=== PATIENT | female | born 1930 | race Caucasian/White ===

== ENCOUNTER 2017-01-25 23:19 | Inpatient (IN) | payer OTHER, MEDICARE ==
[2017-01-25 23:37] VITALS: BMI 29.0
--- NOTE | 2017-01-25 23:54 | PDOC ---
History of Present Illness - General History Source: Patient Exam Limitations: No Limitations - History of Present Illness Initial Comments: 01/26/17 00:26 The patient is a 86 year old female who presents to the emergency department with right hip pain s/p fall at the [facility] assisted living facility. The patient states she was walking in her room without her cane and she fell to the ground. The patient reports she was not dizzy prior to falling, however, is unable to explain how or why she fell. The patient reports pain in the right hip that is worse with movement. The patient is a poor historian and is unable to provide additional information. She denies head, neck or back pain. She denies dizziness or double vision. She denies numbness, tingling or loss of sensation. She denies recent chest pain or shortness of breath. Allergies: Codeine, Penicillins Primary Care Physician: Dr. Quispe <Mao Eng - Last Filed: 01/26/17 03:59> <Elsa Diaz - Last Filed: 01/27/17 00:58> - General Chief Complaint: Injury Stated Complaint: FALL Time Seen by Provider: 01/25/17 23:24 Past History <Mao Eng - Last Filed: 01/26/17 03:59> - Suicide/Smoking/Psychosocial Hx Smoking History: Never smoked Have you smoked in the past 12 months: No Information on smoking cessation initiated: No Hx Alcohol Use: No Drug/Substance Use Hx: No <Elsa Diaz - Last Filed: 01/27/17 00:58> - Past Medical History Allergies/Adverse Reactions: Allergies Allergy/AdvReac Type Severity Reaction Status Date / Time codeine Allergy Verified 01/25/17 23:35 Penicillins Allergy Verified 01/25/17 23:35 Home Medications: Ambulatory Orders Acetaminophen [Tylenol -] 500 mg PO Q4H PRN 01/26/17 Aspirin [ASA -] 81 mg PO DAILY 01/26/17 Memantine HCl [Namenda -] 5 mg PO DAILY 01/26/17 Metoprolol Tartrate [Lopressor -] 25 mg PO BID 01/26/17 Mirtazapine [Remeron -] 15 mg PO HS 01/26/17 Review of Systems - Review of Systems Comments:: 01/26/17 00:31 GENERAL/CONSTITUTIONAL: No fever or chills. No weakness. HEAD, EYES, EARS, NOSE AND THROAT: No change in vision. No ear pain or discharge. No sore throat. CARDIOVASCULAR: No chest pain or shortness of breath. RESPIRATORY: No cough, wheezing, or hemoptysis. GASTROINTESTINAL: No nausea, vomiting, diarrhea or constipation. GENITOURINARY: No dysuria, frequency, or change in urination. MUSCULOSKELETAL: +Right hip pain. No neck or back pain. SKIN: No rash NEUROLOGIC: No headache, vertigo, loss of consciousness, or change in strength/ sensation. ENDOCRINE: No increased thirst. No abnormal weight change. HEMATOLOGIC/LYMPHATIC: No anemia, easy bleeding, or history of blood clots. ALLERGIC/IMMUNOLOGIC: No hives or skin allergy. <Mao Eng - Last Filed: 01/26/17 03:59> *Physical Exam - Vital Signs Last Vital Signs Temp Pulse Resp BP Pulse Ox 97.8 F 84 20 107/48 95 01/25/17 23:35 01/25/17 23:35 01/25/17 23:35 01/25/17 23:35 01/25/17 23:35 - Physical Exam Comments: 01/26/17 00:32 GENERAL: Awake, alert, and fully oriented, in no acute distress HEAD: +Abrasion proximal to the right orthodoxy. EYES: PERRLA, EOMI, sclera anicteric, conjunctiva clear ENT: Auricles normal inspection, hearing grossly normal, nares patent, oropharynx clear without exudates. Moist mucosa NECK: Normal ROM, supple, no lymphadenopathy, JVD, or masses LUNGS: Breath sounds equal, clear to auscultation bilaterally. No wheezes, and no crackles HEART: Regular rate and rhythm, normal S1 and S2, no murmurs, rubs or gallops ABDOMEN: Soft, nontender, normoactive bowel sounds. No guarding, no rebound. No masses EXTREMITIES: +Right knee abrasion. No clubbing or cyanosis. NEUROLOGICAL: Cranial nerves II through XII grossly intact. Normal speech. SKIN: Warm, Dry, normal turgor, no rashes or lesions noted. <Mao Eng - Last Filed: 01/26/17 03:59> - Vital Signs Last Vital Signs Temp Pulse Resp BP Pulse Ox 97.8 F 84 20 107/48 95 01/25/17 23:35 01/25/17 23:35 01/25/17 23:35 01/25/17 23:35 01/25/17 23:35 <Elsa Diaz - Last Filed: 01/27/17 00:58> Heart Score/ECG Review #1 01/26/17 02:28 Vent rate 78 bpm. Normal Sinus rhythm, possible left atrial enlargement, right bundle branch block, abnormal ECG. <Mao Eng - Last Filed: 01/26/17 03:59> ED Treatment Course - LABORATORY CBC & Chemistry Diagram: 01/26/17 00:10 01/26/17 00:10 - RADIOLOGY Radiograph Interpretation: 01/26/17 03:22 EXAM: Pelvis x-ray and right hip x-rays HISTORY: Fall COMPARISON: None. FINDINGS: AP view of the pelvis and AP and lateral views of the right hip are submitted. *There are acute fractures of the right superior and inferior pubic rami. The right hip is intact. There is no hip fracture or dislocation seen. There is diffuse bony demineralization. Reported by Roosevelt Phillips MD Comments: *There are acute fractures of the right superior and inferior pubic rami. <Mao Eng - Last Filed: 01/26/17 03:59> - LABORATORY CBC & Chemistry Diagram: 01/26/17 00:10 01/26/17 00:10 <Elsa Diaz - Last Filed: 01/27/17 00:58> Medical Decision Making - Medical Decision Making 01/26/17 02:[address] Quispe at 11:56 pm. Answering service advised to admit to the hospitalist. <Mao Eng - Last Filed: 01/26/17 03:59> - Medical Decision Making 01/26/17 03:49 Patient Name: MINI GALINDO THIS IS A PRELIMINARY REPORT FROM [facility] DATE OF SERVICE: 2017-01-26 01:39:16 IMAGES: 3 EXAM: Pelvis x-ray and right hip x-rays HISTORY: Fall COMPARISON: None. FINDINGS: AP view of the pelvis and AP and lateral views of the right hip are submitted. *There are acute fractures of the right superior and inferior pubic rami. The right hip is intact. There is no hip fracture or dislocation seen. There is diffuse bony demineralization. THIS DOCUMENT HAS BEEN ELECTRONICALLY SIGNED 01/27/17 00:47 Pt fell at the [place] - unwitnessed syncope -and she broke her right superior and inferior pubic rami and cannot ambulate and she will be admitted. She has early dementia, takes namenda, but she is alert and awake and able to answer questions. Pt was walking without her cane and next think she knew she was on the ground. Unclear if she slipped. She cannot recall if she felt palpitations. No CP and no SONI at this time. The only pain is right femur and hip pain. <Elsa Diaz - Last Filed: 01/27/17 00:58> *DC/Admit/Observation/Transfer - Attestations Scribe Attestion: 01/26/17 00:34 Documentation prepared by Mao Eng, acting as medical educator for Elsa Diaz MD. <Mao Eng - Last Filed: 01/26/17 03:59> - Discharge Dispostion Admit: Yes <Elsa Diaz - Last Filed: 01/27/17 00:58> Diagnosis at time of Disposition: Inability to ambulate due to hip, Syncope and collapse, Fracture of pubic ramus - Discharge Dispostion Condition at time of disposition: Guarded
[2017-01-26 00:38] LABS: BASOPHIL 0.5 % (0-2.0); EOSINOPHIL 0.5 % (0-4.5); MCH 29.7 pg (25.7-33.7); MCHC 33.5 g/dl (32.0-36.0); MEAN CELL VOLUME 88.6 fl (80-96); MEAN PLT VOLUME 9.8 fl (7.5-11.1); PLATELET COUNT 142 K/MM3 (134-434); RDW 13.1 % (11.6-15.6); WHITE BLOOD COUNT 10.5 K/mm3 (4.0-10.0)
[2017-01-26 01:17] LABS: ALBUMIN 3.3 g/dl (3.4-5.0); ALK PHOS 78 U/L (45-117); ANION GAP 5 (8-16); BILIRUBIN,TOTAL 0.5 mg/dL (0.2-1.0); CALCIUM 8.9 mg/dL (8.5-10.1); CO2 32 mmol/L (21-32); CREATININE 0.9 mg/dL (0.55-1.02); GLUCOSE,RANDOM 117 mg/dL (74-106); SGOT/AST 16 U/L (15-37); SGPT/ALT 21 U/L (12-78); TOT PROT 6.2 g/dl (6.4-8.2)
[2017-01-26] MEDS ORDERED: SODIUM CHLORIDE 0.9% 500 ML INFUS.BAG IV ONE (02:16)
[2017-01-26 03:54] LABS: URINE APPEARANCE CLEAR; URINE BILIRUBIN NEGATIVE (NEGATIVE); URINE BLOOD NEGATIVE (NEGATIVE); URINE COLOR YELLOW; URINE GLUCOSE (UA) NEGATIVE (NEGATIVE); URINE KETONE NEGATIVE (NEGATIVE); URINE NITRITE NEGATIVE (NEGATIVE); URINE PROTEIN NEGATIVE (NEGATIVE); URINE UROBILINOGEN NEGATIVE mg/dL (0.2-1.0)
--- NOTE | 2017-01-26 04:37 | HP ---
CHIEF COMPLAINT: s/p fall PCP: Dr. Quispe HISTORY OF PRESENT ILLNESS: 86 yr old with HTN, unsteady gait, BIBEMS from [facility] s/p mechanical fall. She had gone to dinner around 5/6pm, played bingo and retunred to her room around 8pm when she was unpacking from her thanksgiving trip to [place]. she planned to walk from the living to the bedroom to watch TV before going to sleep when she fell on a carpeted floor on her right side. she felt that she could not get up and laid there struggling from her back and her right side and about an hour of trying she called pressed the alert chain to being [facility] staff to her room for assistance. She thinks she may have taken her PM medications prior to moving around. She was recently started on the remeron, has been taking it for insomnia for past three nights. She normally has [employer] from M-F approx 6hrs daily. no one the weekends. son attributes fall to patient no using her walker. denies seizure-like activity, urinary/bowel incontinence, chest pain, palpitations, sob, lightheadedness or dizziness. denies pre-syncopal sx. ER course was notable for: (1) hip and pelvic xrays with possible right pubis symphosis fracture (2) (3) Recent Travel: PAST MEDICAL HISTORY: dementia HTN PAST SURGICAL HISTORY: right TKR Lmany years ago" "stomach cancer" removed approx 5 yrs ago "thymus removed" many years ago Social History: Smoking:denies Alcohol:denies Drugs: denies Family History:[place] Allergies codeine Allergy (Verified 01/25/17 23:35) Penicillins Allergy (Verified 01/25/17 23:35) HOME MEDICATIONS: Home Medications Medication Instructions Recorded Acetaminophen [Tylenol -] 500 mg PO Q4H PRN 01/26/17 Metoprolol Tartrate [Lopressor -] 25 mg PO BID 01/26/17 REVIEW OF SYSTEMS CONSTITUTIONAL: Absent: fever, chills, diaphoresis, generalized weakness, malaise, loss of appetite, weight change HEENT: Absent: rhinorrhea, nasal congestion, throat pain, throat swelling, difficulty swallowing, mouth swelling, ear pain, eye pain, visual changes CARDIOVASCULAR: Absent: chest pain, syncope, palpitations, irregular heart rate, lightheadedness , peripheral edema RESPIRATORY: Absent: cough, shortness of breath, dyspnea with exertion, orthopnea, wheezing, stridor, hemoptysis GASTROINTESTINAL: Absent: abdominal pain, abdominal distension, nausea, vomiting, diarrhea, constipation, melena, hematochezia GENITOURINARY: Absent: dysuria, frequency, urgency, hesitancy, hematuria, flank pain, genital pain MUSCULOSKELETAL: Absent: myalgia, arthralgia, joint swelling, back pain, neck pain SKIN: Absent: rash, itching, pallor HEMATOLOGIC/IMMUNOLOGIC: Absent: easy bleeding, easy bruising, lymphadenopathy, frequent infections ENDOCRINE: Absent: unexplained weight gain, unexplained weight loss, heat intolerance, cold intolerance NEUROLOGIC: Present: unsteady gait, Absent: headache, focal weakness or paresthesias, dizziness, seizure, mental status changes, bladder or bowel incontinence PSYCHIATRIC: Absent: anxiety, depression, suicidal or homicidal ideation, hallucinations. PHYSICAL EXAMINATION Vital Signs - 24 hr 01/25/17 01/26/17 23:35 04:16 Temperature 97.8 F Pulse Rate 84 Pulse Rate [ 75 Right Apical] Respiratory 20 19 Rate Blood Pressure 107/48 Blood Pressure 108/56 [Left Arm] O2 Sat by Pulse 95 98 Oximetry (%) GENERAL: Awake, alert, and fully oriented, in no acute distress. HEAD: Normal with no signs of trauma. EYES: Pupils equal, round and reactive to light, extraocular movements intact, sclera anicteric, conjunctiva clear. No lid lag. EARS, NOSE, THROAT: Ears normal, nares patent, oropharynx clear without exudates. Moist mucous membranes. NECK: Normal range of motion, supple without lymphadenopathy, JVD, or masses. LUNGS: Breath sounds equal, clear to auscultation bilaterally. No wheezes, and no crackles. No accessory muscle use. HEART: Regular rate and rhythm, normal S1 and S2 without murmur, rub or gallop. ABDOMEN: Soft, nontender, not distended, normoactive bowel sounds, no guarding, no rebound, no masses. No hepatomegaly or splenomegaly. MUSCULOSKELETAL: Normal range of motion at all joints. No bony deformities or tenderness. No CVA tenderness. UPPER EXTREMITIES: 2+ pulses, warm, well-perfused. No cyanosis. No clubbing. No peripheral edema. LOWER EXTREMITIES: 2+ pulses, warm, well-perfused. No calf tenderness. No peripheral edema. NEUROLOGICAL: Cranial nerves II-XII intact. Normal speech. Normal gait. PSYCHIATRIC: Cooperative. Good eye contact. Appropriate mood and affect. SKIN: Warm, dry, normal turgor, no rashes or lesions noted, normal capillary refill. Laboratory Results - last 24 hr 01/26/17 01/26/17 01/26/17 00:10 00:10 00:10 WBC 10.5 H RBC 4.60 Hgb 13.6 Hct 40.7 MCV 88.6 MCH 29.7 MCHC 33.5 RDW 13.1 Plt Count 142 MPV 9.8 Neutrophils % 88.0 H Lymphocytes % 6.6 L Monocytes % 4.4 Eosinophils % 0.5 Basophils % 0.5 Sodium 142 Potassium 3.8 Chloride 105 Carbon Dioxide 32 Anion Gap 5 L BUN 24 H Creatinine 0.9 Creat Clearance w eGFR 59.23 Random Glucose 117 H Calcium 8.9 Total Bilirubin 0.5 AST 16 ALT 21 Alkaline Phosphatase 78 Total Protein 6.2 L Albumin 3.3 L Urine Color Urine Appearance Urine pH Ur Specific [place] Urine Protein Urine Glucose (UA) Urine Ketones Urine Blood Urine Nitrite Urine Bilirubin Urine Urobilinogen Alcohol, Quantitative < 5.0 01/26/17 03:45 WBC RBC Hgb Hct MCV MCH MCHC RDW Plt Count MPV Neutrophils % Lymphocytes % Monocytes % Eosinophils % Basophils % Sodium Potassium Chloride Carbon Dioxide Anion Gap BUN Creatinine Creat Clearance w eGFR Random Glucose Calcium Total Bilirubin AST ALT Alkaline Phosphatase Total Protein Albumin Urine Color Yellow Urine Appearance Clear Urine pH 6.0 Ur Specific [place] 1.020 Urine Protein Negative Urine Glucose (UA) Negative Urine Ketones Negative Urine Blood Negative Urine Nitrite Negative Urine Bilirubin Negative Urine Urobilinogen Negative Alcohol, Quantitative ASSESSMENT/PLAN: 86 yr old woman s/p mechanical fall and placed on observation for further evaluation. - son expressed interest in taking his mother home if no intervention recommended #s/p fall - low suspicion for cardiac/neurogenic or infectioun induced syncope - likely due to patient's established unsteady gait vs remeron SE of dizziness/ drowsiness - ortho consult placed in ED - physical therapy consult for gait evaluation #continue home medications for chronic conditions
--- NOTE | 2017-01-26 04:37 | PN ---
Teaching Attending Note Name of Resident: Sandra Johnson ATTENDING PHYSICIAN STATEMENT I saw and evaluated the patient. I reviewed the resident's note and discussed the case with the resident. I agree with the resident's findings and plan as documented. SUBJECTIVE: OBJECTIVE: ASSESSMENT AND PLAN: david os an 86 y/o female presented s/p trauma, patient stated that she was walking in her house where she lost footing since she didnt have her cane with her, she was on the floor for a while before the EMS showed up. patient denied any loss of conciousness she is being admitted for observation Pelvic xray showed questionable fracture plan: admit to the hospital for observation consult orthopedics possible CT of pelvis based on orthopedic recommendation.
[2017-01-26] MEDS: ACETAMINOPHEN 500 MG TABLET (FP) PO PRN (09:59)
[2017-01-26] MEDS: METOPROLOL TARTRATE 25 MG TABLET (FP) PO SCH ×2 (10:00→22:01)
[2017-01-26] MEDS: MEMANTINE HCL 5 MG TABLET (UD) PO SCH (10:00)
[2017-01-26 11:13] LABS: URINE LEUK ESTERASE 1+ (NEGATIVE)
--- NOTE | 2017-01-26 11:47 | HOSP ---
Physical Examination Vital Signs: Vital Signs Temperature 98.1 F 01/26/17 09:58 Pulse Rate 107 H 01/26/17 09:58 Respiratory Rate 20 01/26/17 09:58 Blood Pressure 100/44 01/26/17 09:58 O2 Sat by Pulse Oximetry (%) 94 L 01/26/17 10:03 Findings/Remarks: Subjective: The patient was seen and examined at the bedside, she reports last night she was putting clothes away and she tripped and had a mechanical fall. She denies loss of consciousness, dizziness, prodrome. Awaiting ortho consult Awaiting PT consult Current Medications Generic Name Dose Route Start Last Admin Trade Name Freq PRN Reason Stop Dose Admin Acetaminophen 500 mg 01/26/17 07:41 01/26/17 09:59 Tylenol - PO 500 mg Q4H PRN Administration BACK PAIN Memantine 5 mg 01/26/17 10:00 01/26/17 10:00 Namenda - PO 5 mg DAILY MORIAH Administration Metoprolol Tartrate 25 mg 01/26/17 10:00 01/26/17 10:00 Lopressor - PO 25 mg BID MORIAH Administration Mirtazapine 15 mg 01/26/17 22:00 Remeron - PO HS MORIAH Objective: Vital Signs Period Temp Pulse Resp BP Sys/Kirk Pulse Ox Last 24 Hr 97.5 F-98.1 F 75-107 18-20 100-125/44-71 94-98 Physical Exam: General: NAD, A&Ox3 Lungs: CTA bilaterally Heart: RRR, S1S2, +murmur Abd: Soft, non-tender, non-distended. Normoactive bowel sounds Ext: Warm, well-perfused. 2+ DP/PT bilaterally Neuro: CN 2-12 intact CBCD WBC 10.5 K/mm3 (4.0-10.0) H 01/26/17 00:10 RBC 4.60 M/mm3 (3.60-5.2) 01/26/17 00:10 Hgb 13.6 GM/dL (10.7-15.3) 01/26/17 00:10 Hct 40.7 % (32.4-45.2) 01/26/17 00:10 MCV 88.6 fl (80-96) 01/26/17 00:10 MCHC 33.5 g/dl (32.0-36.0) 01/26/17 00:10 RDW 13.1 % (11.6-15.6) 01/26/17 00:10 Plt Count 142 K/MM3 (134-434) 01/26/17 00:10 MPV 9.8 fl (7.5-11.1) 01/26/17 00:10 CMP Sodium 142 mmol/L (136-145) 01/26/17 00:10 Potassium 3.8 mmol/L (3.5-5.1) 01/26/17 00:10 Chloride 105 mmol/L (98-107) 01/26/17 00:10 Carbon Dioxide 32 mmol/L (21-32) 01/26/17 00:10 Anion Gap 5 (8-16) L 01/26/17 00:10 BUN 24 mg/dL (7-18) H 01/26/17 00:10 Creatinine 0.9 mg/dL (0.55-1.02) 01/26/17 00:10 Creat Clearance w eGFR 59.23 (>60) 01/26/17 00:10 Random Glucose 117 mg/dL (74-106) H 01/26/17 00:10 Calcium 8.9 mg/dL (8.5-10.1) 01/26/17 00:10 Total Bilirubin 0.5 mg/dL (0.2-1.0) 01/26/17 00:10 AST 16 U/L (15-37) 01/26/17 00:10 ALT 21 U/L (12-78) 01/26/17 00:10 Alkaline Phosphatase 78 U/L (45-117) 01/26/17 00:10 Total Protein 6.2 g/dl (6.4-8.2) L 01/26/17 00:10 Albumin 3.3 g/dl (3.4-5.0) L 01/26/17 00:10 Assessment: This is an 86 year old female with PMHx of dementia, HTN who presented to the ED s/p mechanical fall and was found to have a possible right symphysis pubis fracture. Plan: 1) Pelvic fracture - Pain management - PT evaluation - F/u ortho consult 2) Dementia - Continue Namenda - Continue Remeron 3) HTN - Continue Lopressor 4) F/E/N: - Monitor electrolytes - Sodium controlled diet 5) Prophylaxis: - Pt evaluation - Heparin 5,000u sq bid 6) Dispo: - Once evaluated by PT and ortho CODE STATUS: FULL CODE Labs: CBC, BMP 01/26/17 00:10 01/26/17 00:10
--- NOTE | 2017-01-26 13:43 | CON.ORTH ---
Consult Referred by:: medicine Reason for Consultation:: pain RIGHT hip - History of Present Illness Chief Complaint: RIGHT hip pain History of Present Illness: 86-year-old female admitted, mechanical fall at her assisted living facility last night. She had some pain in the pelvic area and did not try to get up and was taken to [facility] where she was admitted yesterday. I was consult to for possible pelvic ring fracture. The patient states she is feeling better. She is here with her daughter. She is not trying to walk. She has a history of a RIGHT knee replacement which is been bothering her some for a while. No other complaints. No chest pain shortness of breath or loss of consciousness. There are no other aggrevating, relieving or associated factors. - History Source History Provided By: Patient, Family Member - Past Medical History ...: No - Alcohol/Substance Use Hx Alcohol Use: No - Smoking History Smoking history: Never smoked Have you smoked in the past 12 months: No Home Medications - Allergies Allergies/Adverse Reactions: Allergies Allergy/AdvReac Type Severity Reaction Status Date / Time codeine Allergy Verified 01/25/17 23:35 Penicillins Allergy Verified 01/25/17 23:35 - Home Medications Home Medications: Ambulatory Orders Acetaminophen [Tylenol -] 500 mg PO Q4H PRN 01/26/17 Aspirin [ASA -] 81 mg PO DAILY 01/26/17 Memantine HCl [Namenda -] 5 mg PO DAILY 01/26/17 Metoprolol Tartrate [Lopressor -] 25 mg PO BID 01/26/17 Mirtazapine [Remeron -] 15 mg PO HS 01/26/17 Physical Exam for Ortho Vital Signs: Vital Signs Temperature 98.1 F 01/26/17 09:58 Pulse Rate 107 H 01/26/17 09:58 Respiratory Rate 20 01/26/17 09:58 Blood Pressure 100/44 01/26/17 09:58 O2 Sat by Pulse Oximetry (%) 94 L 01/26/17 10:03 Constitutional: Yes: Well Nourished, No Distress Neck: Yes: WNL Cardiovascular: Yes: WNL Respiratory: Yes: Regular Gastrointestinal: Yes: Soft Labs: CBC, BMP 01/26/17 00:10 01/26/17 00:10 Other Findings/Remarks: patient is resting comfortably in bed. Her daughter is at bedside. She is a well-appearing in no acute distress. There is mild ecchymosis over the RIGHT anterior knee. There is a well-healed incision here from a knee replacement. She has very mild tenderness over the medial aspect of the knee. There is no gross instability. Full range of motion. She has 2+ pulses in both lower extremity. Intact sensation. She is able to move all joints in both lower extremity is comfortably without any discomfort. There is no tenderness throughout the lower extremities. No pain with axial loading of either hip or with rotation of either hip. Imaging - Results X-ray: Image Reviewed (x-ray AP pelvis, RIGHT hip, RIGHT femur: Possible RIGHT pubic rami fracture. Intact knee replacement.) Assessment/Plan impression: Possible nondisplaced RIGHT pubic rami fracture Plan: I have had along discussion with the patient and daughter about the findings and treatment options. I recommended physical therapy with gait training and weightbearing as tolerated. Follow-up with me as an outpatient. From an orthopedic viewpoint she may be discharged when cleared by physical therapy.
[2017-01-26] MEDS: HEPARIN NA (PORCINE) 5,000 UNITS/ML 1ML VIAL SQ SCH (22:00)
[2017-01-26] MEDS: MIRTAZAPINE 15 MG TABLET (FP) PO SCH (22:01)
[2017-01-27 07:38] LABS: MCH 29.5 pg (25.7-33.7); MCHC 33.6 g/dl (32.0-36.0); MEAN CELL VOLUME 87.9 fl (80-96); MEAN PLT VOLUME 9.7 fl (7.5-11.1); PLATELET COUNT 100 K/MM3 (134-434); RDW 13.2 % (11.6-15.6); WHITE BLOOD COUNT 6.1 K/mm3 (4.0-10.0)
[2017-01-27 08:51] LABS: ALBUMIN 2.9 g/dl (3.4-5.0); ALK PHOS 64 U/L (45-117); ANION GAP 6 (8-16); BILIRUBIN,TOTAL 1.1 mg/dL (0.2-1.0); CALCIUM 8.2 mg/dL (8.5-10.1); CO2 29 mmol/L (21-32); CREATININE 0.5 mg/dL (0.55-1.02); GLUCOSE,RANDOM 113 mg/dL (74-106); SGOT/AST 18 U/L (15-37); SGPT/ALT 21 U/L (12-78); TOT PROT 5.7 g/dl (6.4-8.2)
[2017-01-27] MEDS: ACETAMINOPHEN 500 MG TABLET (FP) PO PRN (09:57)
[2017-01-27] MEDS: METOPROLOL TARTRATE 25 MG TABLET (FP) PO SCH ×2 (09:58→22:00)
[2017-01-27] MEDS: MEMANTINE HCL 5 MG TABLET (UD) PO SCH (09:58)
[2017-01-27] MEDS: HEPARIN NA (PORCINE) 5,000 UNITS/ML 1ML VIAL SQ SCH ×2 (09:58→22:00)
--- NOTE | 2017-01-27 11:51 | PN ---
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 (short form) - Note 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: Subjective: The patient was seen and examined at the bedside, she reports feeling "ok" today Current Medications Generic Name Dose Route Start Last Admin Trade Name Willian PRN Reason Stop Dose Admin Acetaminophen 500 mg 01/26/17 07:41 01/27/17 09:57 Tylenol - PO 500 mg Q4H PRN Administration BACK PAIN Heparin Sodium (Porcine) 5,000 unit 01/26/17 22:00 01/27/17 09:58 Heparin - SQ 5,000 unit BID MORIAH Administration Memantine 5 mg 01/26/17 10:00 01/27/17 09:58 Namenda - PO 5 mg DAILY MORIAH Administration Metoprolol Tartrate 25 mg 01/26/17 10:00 01/27/17 09:58 Lopressor - PO 25 mg BID MORIAH Administration Mirtazapine 15 mg 01/26/17 22:00 01/26/17 22:01 Remeron - PO 15 mg HS MORIAH Administration Objective: Vital Signs Period Temp Pulse Resp BP Sys/Kirk Pulse Ox Last 24 Hr 98 F-98.6 F 72-105 16-20 94-130/49-61 94-94 Physical Exam: General: NAD, A&Ox3 Lungs: CTA bilaterally Heart: RRR, S1S2, +murmur Abd: Soft, non-tender, non-distended. Normoactive bowel sounds Ext: Warm, well-perfused. 2+ DP/PT bilaterally Neuro: CN 2-12 intact CBCD WBC 6.1 K/mm3 (4.0-10.0) D 01/27/17 06:10 RBC 4.06 M/mm3 (3.60-5.2) 01/27/17 06:10 Hgb 12.0 GM/dL (10.7-15.3) D 01/27/17 06:10 Hct 35.7 % (32.4-45.2) 01/27/17 06:10 MCV 87.9 fl (80-96) 01/27/17 06:10 MCHC 33.6 g/dl (32.0-36.0) 01/27/17 06:10 RDW 13.2 % (11.6-15.6) 01/27/17 06:10 Plt Count 100 K/MM3 (134-434) L D 01/27/17 06:10 MPV 9.7 fl (7.5-11.1) 01/27/17 06:10 CMP Sodium 143 mmol/L (136-145) 01/27/17 06:10 Potassium 4.3 mmol/L (3.5-5.1) 01/27/17 06:10 Chloride 108 mmol/L (98-107) H 01/27/17 06:10 Carbon Dioxide 29 mmol/L (21-32) 01/27/17 06:10 Anion Gap 6 (8-16) L 01/27/17 06:10 BUN 17 mg/dL (7-18) D 01/27/17 06:10 Creatinine 0.5 mg/dL (0.55-1.02) L D 01/27/17 06:10 Creat Clearance w eGFR > 60 (>60) 01/27/17 06:10 Random Glucose 113 mg/dL (74-106) H 01/27/17 06:10 Calcium 8.2 mg/dL (8.5-10.1) L 01/27/17 06:10 Total Bilirubin 1.1 mg/dL (0.2-1.0) H D 01/27/17 06:10 AST 18 U/L (15-37) 01/27/17 06:10 ALT 21 U/L (12-78) 01/27/17 06:10 Alkaline Phosphatase 64 U/L (45-117) 01/27/17 06:10 Total Protein 5.7 g/dl (6.4-8.2) L 01/27/17 06:10 Albumin 2.9 g/dl (3.4-5.0) L 01/27/17 06:10 Assessment: This is an 86 year old female with PMHx of dementia, HTN who presented to the ED s/p mechanical fall and was found to have a possible right symphysis pubis fracture. Plan: 1) Pelvic fracture - Pain management - PT: walked 1 foot - Appreciate ortho consult: No surgical intervention at this time 2) Dementia - Continue Namenda - Continue Remeron 3) HTN - Continue Lopressor 4) F/E/N: - Monitor electrolytes - Sodium controlled diet 5) Prophylaxis: - Pt evaluation - Heparin 5,000u sq bid 6) Dispo: - The patient was made inpatient. Due to her pelvic fracture she is not able to ambulate and it is unsafe to send her home. There is an acute change in her ability to ambulate following the mechanical fall and fracture CODE STATUS: FULL CODE Visit type - Emergency Visit Emergency Visit: Yes ED Registration Date: 01/26/17 Care time: The patient presented to the Emergency Department on the above date and was hospitalized for further evaluation of their emergent condition. - New Patient This patient is new to me today: No - Critical Care Critical Care patient: No
--- NOTE | 2017-01-27 14:12 | PN ---
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 (short form) - Note 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: Feeling improved a little bit. Sleeping when I came in to room but her son is present and he wanted her to wake up when he woke her up. She apparently did some physical therapy and walks a little bit yesterday. However it sounds like they would like her to go to rehabilitation. She does have rehabilitation available at her assisted living facility. Physical examination: She has no tenderness in her lower extremities and no pain with stress examination axial load or rotation of the lower extremities. Mild tenderness over the RIGHT greater trochanter. Impression: Contusion hips versus pubic rami fracture. Plan: Physical therapy, out of bed, rehabilitation placement. I spoke with her son extensively about this process and he understands that ultimately the medical team and case management will help in the process of discharge planning. From an orthopedic viewpoint she may be discharged once she has appropriate care arranged.
[2017-01-27] MEDS: MIRTAZAPINE 15 MG TABLET (FP) PO SCH (22:00)
[2017-01-28] MEDS: ACETAMINOPHEN 500 MG TABLET (FP) PO PRN (09:25)
[2017-01-28] MEDS: METOPROLOL TARTRATE 25 MG TABLET (FP) PO SCH ×2 (09:27→22:00)
[2017-01-28] MEDS: HEPARIN NA (PORCINE) 5,000 UNITS/ML 1ML VIAL SQ SCH ×2 (09:27→22:00)
[2017-01-28] MEDS: MEMANTINE HCL 5 MG TABLET (UD) PO SCH (09:27)
--- NOTE | 2017-01-28 19:11 | PN ---
Physical Exam: SUBJECTIVE: Patient seen and examined at bedside. Denies pain. Voices no complaints. Says she is ready to go to SNF tomorrow. PCP: Dr. Quispe; hospitalist service covering for Dr. Quispe today OBJECTIVE: Vital Signs Period Temp Pulse Resp BP Sys/Kirk Pulse Ox Last 24 Hr 98.3 F-99.1 F 91-107 18-18 96-113/54-66 92-94 GENERAL: The patient is awake, alert, rambling speech, in no acute distress. LUNGS: Breath sounds equal, clear to auscultation bilaterally, no wheezes, no crackles, no accessory muscle use. HEART: Regular rate and rhythm, S1, S2, + murmur ABDOMEN: Soft, nontender, nondistended, normoactive bowel sounds, no guarding, no rebound EXTREMITIES: 2+ pulses, warm, well-perfused, no edema. NEUROLOGICAL: Cranial nerves II through XII grossly intact. Normal speech, gait not observed. SKIN: Warm, dry, normal turgor Active Medications Generic Name Dose Route Start Last Admin Trade Name Willian PRN Reason Stop Dose Admin Acetaminophen 500 mg 01/26/17 07:41 01/28/17 09:25 Tylenol - PO 500 mg Q4H PRN Administration BACK PAIN Heparin Sodium (Porcine) 5,000 unit 01/26/17 22:00 01/28/17 09:27 Heparin - SQ 5,000 unit BID MORIAH Administration Memantine 5 mg 01/26/17 10:00 01/28/17 09:27 Namenda - PO 5 mg DAILY MORIAH Administration Metoprolol Tartrate 25 mg 01/26/17 10:00 01/28/17 09:27 Lopressor - PO 25 mg BID MORIAH Administration Mirtazapine 15 mg 01/26/17 22:00 01/27/17 22:00 Remeron - PO 15 mg HS MORIAH Administration ASSESSMENT/PLAN 86 year-old female with PMH of HTN and dementia admitted for a possible nondisplaced right symphysis pubis fracture. The decision to admit was premised on the patient's inability to ambulate secondary to pain together with dementia. These factors rendered patient an unsafe discharge to home. Nondisplaced pubic rami fracture v. contusion --seen and evaluated by ortho; given patient's age and co-morbidities, and after discussion with family, a conservative course of physical therapy and rehabilitation has been decided upon Dementia --at baseline --continue Namenda, Remeron Hypertension --normotensive --continue metoprolol FEN Fluids: PO intake adequate Electrolyte: replete as indicated Nutrition: low sodium DVT prophylaxis: subq heparin Daily PT Dispo: SNF placement tomorrow morning. Full code. Visit type - Emergency Visit Emergency Visit: Yes ED Registration Date: 01/26/17 Care time: The patient presented to the Emergency Department on the above date and was hospitalized for further evaluation of their emergent condition. - New Patient This patient is new to me today: Yes Date on this admission: 01/28/17 - Critical Care Critical Care patient: No
[2017-01-28] MEDS: MIRTAZAPINE 15 MG TABLET (FP) PO SCH (22:00)
--- NOTE | 2017-01-28 23:04 | EKG ---
Test Reason : Blood Pressure : / mmHG Vent. Rate : 078 BPM Atrial Rate : 078 BPM P-R Int : 144 ms QRS Dur : 124 ms QT Int : 394 ms P-R-T Axes : 070 065 048 degrees QTc Int : 449 ms NORMAL SINUS RHYTHM POSSIBLE LEFT ATRIAL ENLARGEMENT RIGHT BUNDLE BRANCH BLOCK ABNORMAL ECG NO PREVIOUS ECGS AVAILABLE Confirmed by CHARANJIT ANN, CEASAR ([id number]) on 01/28/2017 11:04:04 PM Referred By: Confirmed By:CEASAR DONOHUE MD
--- NOTE | 2017-01-29 06:36 | DS ---
Physical Examination Vital Signs: Vital Signs Temperature 98.1 F 01/29/17 02:39 Pulse Rate 98 H 01/29/17 02:39 Respiratory Rate 18 01/29/17 02:39 Blood Pressure 108/51 01/29/17 02:39 O2 Sat by Pulse Oximetry (%) 94 L 01/28/17 21:00 Labs: CBC, BMP 01/27/17 06:10 01/27/17 06:10 Discharge Summary Reason For Visit: INABILITY TO AMBULATE DUE TO HIP,SYNCOPE AND Current Active Problems Fracture of pubic ramus (Acute) Inability to ambulate due to hip (Acute) Syncope and collapse (Acute) Condition: Guarded - Instructions Referrals: Payal Quispe MD [Primary Care Provider] - - Home Medications Comprehensive Discharge Medication List: Ambulatory Orders Acetaminophen [Tylenol -] 500 mg PO Q4H PRN 01/26/17 Aspirin [ASA -] 81 mg PO DAILY 01/26/17 Memantine HCl [Namenda -] 5 mg PO DAILY 01/26/17 Metoprolol Tartrate [Lopressor -] 25 mg PO BID 01/26/17 Mirtazapine [Remeron -] 15 mg PO HS 01/26/17 This patient is new to me today: No Emergency Visit: Yes ED Registration Date: 01/26/17 Care time: The patient presented to the Emergency Department on the above date and was hospitalized for further evaluation of their emergent condition. Critical Care patient: No - Discharge Referral Referred to [facility] Med P.C.: No
--- NOTE | 2017-01-29 06:38 | DS ---
Physical Exam: SUBJECTIVE: Patient seen and examined OBJECTIVE: Vital Signs Period Temp Pulse Resp BP Sys/Kirk Pulse Ox Last 24 Hr 97.6 F-98.3 F 98-105 18-18 93-116/48-63 92-94 PHYSICAL EXAM GENERAL: The patient is awake, alert, rambling speech, in no acute distress. LUNGS: Breath sounds equal, clear to auscultation bilaterally, no wheezes, no crackles, no accessory muscle use. HEART: Regular rate and rhythm, S1, S2, + murmur ABDOMEN: Soft, nontender, nondistended, normoactive bowel sounds, no guarding, no rebound EXTREMITIES: 2+ pulses, warm, well-perfused, no edema. NEUROLOGICAL: Cranial nerves II through XII grossly intact. Normal speech, gait not observed. SKIN: Warm, dry, normal turgor LABS CBCD WBC 6.1 K/mm3 (4.0-10.0) D 01/27/17 06:10 RBC 4.06 M/mm3 (3.60-5.2) 01/27/17 06:10 Hgb 12.0 GM/dL (10.7-15.3) D 01/27/17 06:10 Hct 35.7 % (32.4-45.2) 01/27/17 06:10 MCV 87.9 fl (80-96) 01/27/17 06:10 MCHC 33.6 g/dl (32.0-36.0) 01/27/17 06:10 RDW 13.2 % (11.6-15.6) 01/27/17 06:10 Plt Count 100 K/MM3 (134-434) L D 01/27/17 06:10 MPV 9.7 fl (7.5-11.1) 01/27/17 06:10 CMP Sodium 143 mmol/L (136-145) 01/27/17 06:10 Potassium 4.3 mmol/L (3.5-5.1) 01/27/17 06:10 Chloride 108 mmol/L (98-107) H 01/27/17 06:10 Carbon Dioxide 29 mmol/L (21-32) 01/27/17 06:10 Anion Gap 6 (8-16) L 01/27/17 06:10 BUN 17 mg/dL (7-18) D 01/27/17 06:10 Creatinine 0.5 mg/dL (0.55-1.02) L D 01/27/17 06:10 Creat Clearance w eGFR > 60 (>60) 01/27/17 06:10 Calcium 8.2 mg/dL (8.5-10.1) L 01/27/17 06:10 Total Bilirubin 1.1 mg/dL (0.2-1.0) H D 01/27/17 06:10 AST 18 U/L (15-37) 01/27/17 06:10 ALT 21 U/L (12-78) 01/27/17 06:10 Alkaline Phosphatase 64 U/L (45-117) 01/27/17 06:10 Total Protein 5.7 g/dl (6.4-8.2) L 01/27/17 06:10 Albumin 2.9 g/dl (3.4-5.0) L 01/27/17 06:10 HOSPITAL COURSE: Date of Admission:01/26/17 Date of Discharge: 01/29/17 86 year-old female with PMH of HTN and dementia admitted for a possible nondisplaced right symphysis pubis fracture. The decision to admit was premised on the patient's inability to ambulate secondary to pain together with dementia. These factors rendered patient an unsafe discharge home. Nondisplaced pubic rami fracture v. contusion --seen and evaluated by ortho; given patient's age and co-morbidities, and after discussion with family, a conservative course of physical therapy and rehabilitation was decided upon Dementia --at baseline --continued Namenda, Remeron Hypertension --normotensive --continued metoprolol Minutes to complete discharge: 35 Discharge Summary Reason For Visit: INABILITY TO AMBULATE DUE TO HIP,SYNCOPE AND Current Active Problems Fracture of pubic ramus (Acute) Inability to ambulate due to hip (Acute) Syncope and collapse (Acute) Condition: Guarded - Instructions Referrals: Payal Quispe MD [Primary Care Provider] - - Home Medications Comprehensive Discharge Medication List: Ambulatory Orders Acetaminophen [Tylenol -] 500 mg PO Q4H PRN 01/26/17 Aspirin [ASA -] 81 mg PO DAILY 01/26/17 Memantine HCl [Namenda -] 5 mg PO DAILY 01/26/17 Metoprolol Tartrate [Lopressor -] 25 mg PO BID 01/26/17 Mirtazapine [Remeron -] 15 mg PO HS 01/26/17 This patient is new to me today: Yes Date on this admission: 01/29/17 Emergency Visit: Yes ED Registration Date: 01/26/17 Care time: The patient presented to the Emergency Department on the above date and was hospitalized for further evaluation of their emergent condition. Critical Care patient: No - Discharge Referral Referred to [facility] Med P.C.: No
[2017-01-29] MEDS: HEPARIN NA (PORCINE) 5,000 UNITS/ML 1ML VIAL SQ SCH (09:59)
[2017-01-29] MEDS: MEMANTINE HCL 5 MG TABLET (UD) PO SCH (09:59)
[2017-01-29] MEDS: METOPROLOL TARTRATE 25 MG TABLET (FP) PO SCH (09:59)
[2017-01-29 18:15] VITALS: BP 105/47; PULSE 109; TEMP 98.6
== END 2017-01-29 11:38 | DRG 536 ==
LOC: JER 23:19 → JERBED 01-26 03:47 → J4S 01-26 05:43
PROVIDERS: ADMIT Internal Medicine; ATTEND Nurse Practitioner Acute Care
DX: S32.591A Other specified fracture of right pubis, initial encounter for closed fracture (principal); S80.01XA Contusion of right knee, initial encounter; F03.90 Unspecified dementia, unspecified severity, without behavioral disturbance, psychotic disturbance, mood disturbance, and anxiety; I10 Essential (primary) hypertension; W18.39XA Other fall on same level, initial encounter; Y93.89 Activity, other specified; Y92.092 Bedroom in other non-institutional residence as the place of occurrence of the external cause; Z85.028 Personal history of other malignant neoplasm of stomach; Z88.0 Allergy status to penicillin
CPT/HCPCS: 36415; 71010-TC; 73523-TC; 73552-TC-RT; 80053; 80307; 81003; 81015; 85025; 85027; 93005; 93010; 97116-GP; 97161-GP; 99282-25; J1644

== ENCOUNTER 2018-01-01 01:50 | Inpatient (IN) | payer OTHER, MEDICARE ==
[2018-01-01 02:37] VITALS: BMI 25.4
[2018-01-01] MEDS ORDERED: ACETAMINOPHEN 325 MG TABLET (FP) PO ONE (02:38)
[2018-01-01 03:37] LABS: BASO % 0.5 % (0-2.0); EOS % 0.8 % (0-4.5); HEMATOCRIT 42.3 % (32.4-45.2); LYMPH % 9.2 % (8-40); MCH 29.5 pg (25.7-33.7); MCHC 33.1 g/dl (32.0-36.0); MEAN CELL VOLUME 89.1 fl (80-96); MEAN PLT VOLUME 8.7 fl (7.5-11.1); MONO % 4.9 % (3.8-10.2); NEUT % 84.6 % (42.8-82.8); PLATELET COUNT 145 K/MM3 (134-434); RBC 4.74 M/mm3 (3.60-5.2); RDW 13.3 % (11.6-15.6)
[2018-01-01] MEDS ORDERED: ACETAMINOPHEN 325 MG TABLET (FP) ONE (03:51)
[2018-01-01 04:03] LABS: ALBUMIN 3.7 g/dl (3.4-5.0); ALK PHOS 65 U/L (45-117); ANION GAP 6 MMOL/L (8-16); BILIRUBIN,TOTAL 0.4 mg/dL (0.2-1); BLOOD UREA NITROGEN 21 mg/dL (7-18); CALCIUM 9.8 mg/dL (8.5-10.1); CHLORIDE 104 mmol/L (98-107); CO2 30 mmol/L (21-32); CREATININE 0.7 mg/dL (0.55-1.3); GLUCOSE,RANDOM 119 mg/dL (74-106); POTASSIUM 3.8 mmol/L (3.5-5.1); SGOT/AST 16 U/L (15-37); SGPT/ALT 20 U/L (13-61); SODIUM 140 mmol/L (136-145); TOT PROT 6.6 g/dl (6.4-8.2)
--- NOTE | 2018-01-01 04:04 | PDOC ---
History of Present Illness - History of Present Illness Initial Comments: 01/01/18 04:04 The patient is a 87 year old female, with a significant past medical history of dementia, hypertension, HLD, colon CA s/p colectomy 2013, thymoma s/p thymectomy 2008, who presents to the emergency department with son from [address] [place] [address] s/p mechanical fall onto her right hip and thigh this morning when she attempted to walk to get water without use of her walker. She states she has not attempted ambulate since the fall. She reports pain localized to the right hip and knee, worse with movement. She denies numbness or tingling. No prodromal sx. The patient denies chest pain, shortness of breath, headache and dizziness. The patient denies fever, chills, nausea, vomit, diarrhea and constipation. The patient denies dysuria, frequency, urgency and hematuria. Allergies: penicillins, codeine Past surgical history: cholecystectomy, colectomy <Holly Cote - Last Filed: 01/01/18 04:04> - General History Source: Patient, Family Exam Limitations: No Limitations <Jyotsna Mckay - Last Filed: 01/01/18 07:42> - General Chief Complaint: Pain Stated Complaint: R THIGH PAIN S/P FALL Time Seen by Provider: 01/01/18 02:22 Past History <Holly Cote - Last Filed: 01/01/18 04:04> - Past Medical History COPD: No Dementia: Yes HTN: Yes - Surgical History Orthopedic Surgery: Yes (Rt Knee Replacement) - Immunization History Immunization Up to Date: No - Suicide/Smoking/Psychosocial Hx Smoking History: Never smoked Have you smoked in the past 12 months: No Hx Alcohol Use: No Drug/Substance Use Hx: No Substance Use Type: None <Jyotsna Mckay - Last Filed: 01/01/18 07:42> - Past Medical History Allergies/Adverse Reactions: Allergies Allergy/AdvReac Type Severity Reaction Status Date / Time codeine Allergy Verified 01/25/17 23:35 Penicillins Allergy Verified 01/25/17 23:35 Home Medications: Ambulatory Orders Acetaminophen [Tylenol .Extra-Strength -] 500 mg PO Q4H PRN 01/26/17 Aspirin [ASA -] 81 mg PO DAILY 01/26/17 Memantine HCl [Namenda -] 5 mg PO DAILY 01/26/17 Metoprolol Tartrate [Lopressor -] 25 mg PO BID 01/26/17 Mirtazapine [Remeron -] 15 mg PO HS 01/26/17 Review of Systems - Review of Systems Able to Perform ROS?: Yes Comments:: 01/01/18 04:04 Constitutional: no fevers or chills. HEENT: no headache or dizziness. No congestion. No visual/hearing disturbances. CVS: no cp or syncope. Resp: no sob. No cough. Abdomen: no abdominal pain, nausea or vomiting. Genitourinary: no urinary sx, hematuria. MUSCULOSKELETAL: (+) right hip joint pain. No swelling. No neck or back pain. SKIN: no redness or skin changes, no discharge, no rash. No wounds. Hematologic: no easy bruising/bleeding. NEUROLOGIC: No headache, dizziness, LOC or altered mental status. No weakness, numbness or tingling. All other systems reviewed and negative, or as documented in HPI. <Holly Cote - Last Filed: 01/01/18 04:04> *Physical Exam - Vital Signs Last Vital Signs Temp Pulse Resp BP Pulse Ox 97.5 F L 94 H 20 132/66 94 L 01/01/18 01:55 01/01/18 01:55 01/01/18 01:55 01/01/18 01:55 01/01/18 01:55 - Physical Exam Comments: 01/01/18 04:04 General: GCS 15 NAD HEENT: NCAT, PERRL, EOMI. Airway intact. Neck: neck supple, no midline C spine tenderness, ROM intact. Resp: Lungs clear, no crepitus Chest: no clavicle or chest wall tenderness, anterior sternotomy scar CVS: (+) holosystolic murmur. 2+ pulses throughout. Abdomen: Abdomen soft, NTND, nonperitoneal. Back: Back nontender, no midline spinal tenderness, FROM, no stepoffs. MSK: (+) diffuse ttp to right hip, buttock and knee. Pelvis stable, FROM in all extremities. Scar over right knee. Neuro: Alert, no focal neuro deficits. Oriented appropriately. Skin: intact, normal color and well perfused. <Holly Cote - Last Filed: 01/01/18 04:04> - Vital Signs Last Vital Signs Temp Pulse Resp BP Pulse Ox 97.5 F L 94 H 20 132/66 94 L 01/01/18 01:55 01/01/18 01:55 01/01/18 01:55 01/01/18 01:55 01/01/18 01:55 <Jyotsna Mckay - Last Filed: 01/01/18 07:42> ED Treatment Course - LABORATORY CBC & Chemistry Diagram: 01/01/18 03:26 01/01/18 03:26 - ADDITIONAL ORDERS Additional order review: Laboratory Results 01/01/18 03:26 Sodium 140 Potassium 3.8 Chloride 104 Carbon Dioxide 30 Anion Gap 6 L BUN 21 H Creatinine 0.7 Creat Clearance w eGFR > 60 Random Glucose 119 H Calcium 9.8 Total Bilirubin 0.4 AST 16 ALT 20 Alkaline Phosphatase 65 Total Protein 6.6 Albumin 3.7 01/01/18 03:26 RBC 4.74 MCV 89.1 MCHC 33.1 RDW 13.3 MPV 8.7 D Neutrophils % 84.6 H Lymphocytes % 9.2 D Monocytes % 4.9 Eosinophils % 0.8 Basophils % 0.5 - Medications Given in the ED: ED Medications Discontinued Medications Generic Name Dose Route Start Last Admin Trade Name Freq PRN Reason Stop Dose Admin Acetaminophen 650 mg 01/01/18 02:38 01/01/18 03:50 Tylenol - PO 01/01/18 02:39 650 mg ONCE ONE Administration <Holly Cote - Last Filed: 01/01/18 04:04> - LABORATORY CBC & Chemistry Diagram: 01/01/18 03:26 01/01/18 03:26 - ADDITIONAL ORDERS Additional order review: Laboratory Results 01/01/18 03:26 Sodium 140 Potassium 3.8 Chloride 104 Carbon Dioxide 30 Anion Gap 6 L BUN 21 H Creatinine 0.7 Creat Clearance w eGFR > 60 Random Glucose 119 H Calcium 9.8 Total Bilirubin 0.4 AST 16 ALT 20 Alkaline Phosphatase 65 Total Protein 6.6 Albumin 3.7 01/01/18 03:26 RBC 4.74 MCV 89.1 MCHC 33.1 RDW 13.3 MPV 8.7 D Neutrophils % 84.6 H Lymphocytes % 9.2 D Monocytes % 4.9 Eosinophils % 0.8 Basophils % 0.5 - RADIOLOGY Radiology Studies Ordered: Category Date Time Status FEMUR-RIGHT [RAD] Stat Radiology 01/01/18 02:39 Ordered HIP-RIGHT [RAD] Stat Radiology 01/01/18 02:39 Ordered KNEE 3 POS-RIGHT [RAD] Stat Radiology 01/01/18 02:55 Ordered PELVIS [RAD] Stat Radiology 01/01/18 02:38 Ordered - Medications Given in the ED: ED Medications Discontinued Medications Generic Name Dose Route Start Last Admin Trade Name Willian PRN Reason Stop Dose Admin Acetaminophen 650 mg 01/01/18 02:38 01/01/18 03:50 Tylenol - PO 01/01/18 02:39 650 mg ONCE ONE Administration <Jyotsna Mckay - Last Filed: 01/01/18 07:42> Medical Decision Making - Medical Decision Making 01/01/18 07:40 87 YOF with dementia, HTN, prior colon ca s/p colectomy, depression p/w right IT hip fx. NVI vitals wnl. analgesia with tylenol for now. offered fem nerve block/fascia iliaca block, but declines for now which is fine. pre op labs, txs. IV placed ortho cs with Dr. Neil. keep npo admit to Dr. Meehan. <Jyotsna Mckay - Last Filed: 01/01/18 07:42> *DC/Admit/Observation/Transfer - Attestations Scribe Attestion: 01/01/18 04:04 Documentation prepared by Holly Cote, acting as medical esthetician for Jyotsna Mckay MD <Holly Cote - Last Filed: 01/01/18 04:04> - Discharge Dispostion Decision to Admit order: Yes Decision to Admit order Date/Time: 01/01/18 07:42 Decision to Admit Order Category Date Time Status Decision to Admit to Hospital Routine Admission 01/01/18 06:43 Active <Jyotsna Mckay - Last Filed: 01/01/18 07:42> Diagnosis at time of Disposition: Intertrochanteric fracture of right hip - Discharge Dispostion Condition at time of disposition: Guarded
[2018-01-01] MEDS ORDERED: LIDOCAINE HCL 1%, 10 MG/ML (50 mL VIAL) SQ ONE (06:40)
[2018-01-01] MEDS ORDERED: BUPIVACAINE HCL/PF 0.5% (5MG/ML) 10 ML VIAL NR ONE (06:41)
[2018-01-01] MEDS ORDERED: BUPIVACAINE HCL/PF 0.5% (5MG/ML) 10 ML VIAL ONE ×2 (06:48→11:03)
[2018-01-01] MEDS ORDERED: LIDOCAINE HCL 1%, 10 MG/ML (20ML VIAL) ONE (06:48)
[2018-01-01 07:26] LABS: INR 1.05 (0.83-1.09); PROTHROMBIN TIME (PATIENT) 12.4 SEC (9.7-13.0)
--- NOTE | 2018-01-01 09:37 | CONSULT ---
Consult - text type - Consultation Consultation Note: FULL CONSULT DICTATED IMP: R IT HIP FX PLAN: -->OR FOR R GAMMA NAIL TODAY
--- NOTE | 2018-01-01 09:41 | HP ---
Admitting History and Physical - Admission History of Present Illness: The patient is a 87 year old female, with a significant past medical history of dementia, hypertension, HLD, colon CA s/p colectomy 2013, thymoma s/p thymectomy 2008, who presents to the emergency department with son from [address] [place] [address] s/p mechanical fall onto her right hip and thigh this morning when she attempted to walk to get water without use of her walker. She states she has not attempted ambulate since the fall. She reports pain localized to the right hip and knee, worse with movement. She denies numbness or tingling. No prodromal sx. The patient denies chest pain, shortness of breath, headache and dizziness. The patient denies fever, chills, nausea, vomit, diarrhea and constipation. The patient denies dysuria, frequency, urgency and hematuria. Allergies: penicillins, codeine Past surgical history: cholecystectomy, colectomy History Source: Patient, Family Member, Medical Record Limitations to Obtaining History: Poor Historian - Past Medical History SOURCING INTERNSHIP: Yes: Dementia Cardiovascular: Yes: Murmur Reproductive: Yes: Postmenopausal Musculoskeletal: Yes: Osteoarthritis - Past Surgical History Additional Past Surgical History: thymectomy right knee replacement colectomy - Smoking History Smoking history: Never smoked Have you smoked in the past 12 months: No - Alcohol/Substance Use Hx Alcohol Use: No - Social History Usual Living Arrangement: Yes: Alone ADL: Support Services History of Recent Travel: No Home Medications - Allergies Allergies/Adverse Reactions: Allergies Allergy/AdvReac Type Severity Reaction Status Date / Time codeine Allergy Verified 01/25/17 23:35 Penicillins Allergy Verified 01/25/17 23:35 - Home Medications Home Medications: Ambulatory Orders Acetaminophen [Tylenol .Extra-Strength -] 500 mg PO Q4H PRN 01/26/17 Aspirin [ASA -] 81 mg PO DAILY 01/26/17 Memantine HCl [Namenda -] 5 mg PO DAILY 01/26/17 Metoprolol Tartrate [Lopressor -] 25 mg PO BID 01/26/17 Mirtazapine [Remeron -] 15 mg PO HS 01/26/17 Review of Systems - Review of Systems Constitutional: reports: No Symptoms Eyes: reports: No Symptoms HENT: reports: No Symptoms Neck: reports: No Symptoms Cardiovascular: reports: No Symptoms Respiratory: reports: No Symptoms Gastrointestinal: reports: No Symptoms Genitourinary: reports: No Symptoms Breasts: reports: No Symptoms Reported Musculoskeletal: reports: No Symptoms Integumentary: reports: No Symptoms Neurological: reports: Pre-Existing Deficit Endocrine: reports: No Symptoms Hematology/Lymphatic: reports: No Symptoms Psychiatric: reports: No Symptoms Physical Examination Vital Signs: Vital Signs Temperature 97.5 F L 01/01/18 01:55 Pulse Rate 93 H 01/01/18 06:10 Respiratory Rate 17 01/01/18 06:10 Blood Pressure 101/59 L 01/01/18 06:10 O2 Sat by Pulse Oximetry (%) 94 L 01/01/18 06:10 Constitutional: Yes: Well Nourished, No Distress, Calm Eyes: Yes: Conjunctiva Clear, EOM Intact HENT: Yes: Atraumatic, Normocephalic Neck: Yes: Supple, Trachea Midline Cardiovascular: Yes: Regular Rate and Rhythm, Murmur Respiratory: Yes: Regular, CTA Bilaterally Gastrointestinal: Yes: Normal Bowel Sounds, Soft ...Rectal Exam: Yes: Deferred Renal/: Yes: WNL Breast(s): Yes: WNL Musculoskeletal: Yes: Other (pain right hip) Extremities: Yes: Other (right hip pain) Edema: No Peripheral Pulses WNL: Yes Integumentary: Yes: WNL Neurological: Yes: Alert, Oriented, Pre-Existing Deficit Psychiatric: Yes: Alert, Oriented Labs: CBC, BMP 01/01/18 03:26 01/01/18 03:26 Problem List - Problems (1) Intertrochanteric fracture of right hip Code(s): S72.141A - DISPLACED INTERTROCHANTERIC FRACTURE OF RIGHT FEMUR, INIT (2) Inability to ambulate due to hip Code(s): R26.2 - DIFFICULTY IN WALKING, NOT ELSEWHERE CLASSIFIED (3) Dementia Code(s): F03.90 - UNSPECIFIED DEMENTIA WITHOUT BEHAVIORAL DISTURBANCE (4) History of colon cancer Code(s): Z85.038 - PERSONAL HISTORY OF MALIGNANT NEOPLASM OF LARGE INTESTINE Assessment/Plan 87 y/o female with PMH dementia / HL / 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 Patient is able to provide hx, denies chest pain / lightheadedness / dizziness. # mechanical fall IT hip Fx- right review labs / cxr / ekg ortho consult patient medically stable for emergent surgery / POC / risk discussed with family ( son and daughter )
[2018-01-01] MEDS ORDERED: ceFAZolin SODIUM 1 GM VIAL IVPB ONE (10:22)
[2018-01-01] MEDS ORDERED: DEXTROSE 5%-0.45% SALINE 1,000 ML IV SCH (10:30)
[2018-01-01] MEDS ORDERED: PROMETHAZINE HCL 25 MG/1 ML VIAL IVPUSH PRN ×2 (10:33→12:55)
[2018-01-01] MEDS ORDERED: ONDANSETRON 4 MG/2 ML VIAL IVPUSH PRN ×2 (10:33→12:55)
[2018-01-01] MEDS ORDERED: LACTATED RINGERS SOLUTION 1,000 ML IV SCH ×2 (10:45→12:15)
--- NOTE | 2018-01-01 10:57 | EKG ---
Test Reason : Blood Pressure : / mmHG Vent. Rate : 092 BPM Atrial Rate : 092 BPM P-R Int : 138 ms QRS Dur : 118 ms QT Int : 376 ms P-R-T Axes : 074 072 045 degrees QTc Int : 464 ms NORMAL SINUS RHYTHM INCOMPLETE RIGHT BUNDLE BRANCH BLOCK BORDERLINE ECG WHEN COMPARED WITH ECG OF 26-JAN-2017 00:07, NO SIGNIFICANT CHANGE WAS FOUND Confirmed by ETHAN ANN, NEDA ([id number]) on 01/01/2018 10:57:15 AM Referred By: Confirmed By:NEDA LONG MD
--- NOTE | 2018-01-01 11:02 | CONS ---
DATE OF CONSULTATION: 01/01/2018 ORTHOPEDIC CONSULTATION/[facility] HISTORY OF PRESENT ILLNESS: Patient is an 87-year-old female status post a fall today injuring her right hip. Patient denies LOC, dizziness, lightheadedness, blurry vision. Patient was unable to get up. EMS brought her to [facility] for evaluation. PHYSICAL EXAMINATION: She has a short and externally rotated right hip with marked increased pain with range of motion of her hip, mild swelling of her thigh. She does have a well-healed medial longitudinal and parapatellar arthrotomy incision from a previous total knee replacement, but that knees range of motion is quite good. Calf is soft, nontender, neurovascularly intact. IMAGING: X-rays taken at [facility] Emergency Department revealed a right intertrochanteric hip fracture. IMPRESSION: Right intertrochanteric hip fracture. Risks, benefits, and alternatives were discussed with the patient and with son in great detail. Patient will be booked for Gamma nail later today once medically optimized. RAMANDEEP POSADAS M.D. [id number]
[2018-01-01] MEDS ORDERED: MIDAZOLAM HCL 2 MG/2 ML SINGLE DOSE VIAL ONE (11:04)
[2018-01-01] MEDS ORDERED: SODIUM CHLORIDE 0.9% P/F 10 ML VIAL IJ ONE (11:19)
[2018-01-01] MEDS ORDERED: ceFAZolin SODIUM 1 GM VIAL ONE ×2 (11:19→18:09)
--- NOTE | 2018-01-01 11:44 | OP ---
Operative Note - Note: Operative Date: 01/01/18 ([facility]) Pre-Operative Diagnosis: right IT fx Operation: right IM gamma nail Post-Operative Diagnosis: Same as Pre-op Surgeon: Toño Neil Lettuce Cutter: Osvaldo Ledesma Anesthesiologist/WEB MARKETING ASSISTANT: Isai Diamond Estimated Blood Loss (mls): 50 Operative Report Dictated: Yes
--- NOTE | 2018-01-01 12:31 | SPEC ---
DATE OF OPERATION: 01/01/2018 PREOPERATIVE DIAGNOSIS: Right intertrochanteric hip fracture. POSTOPERATIVE DIAGNOSIS: Right intertrochanteric hip fracture. PROCEDURE: Right Gamma nailing. SURGICAL ATTENDING: Toño Neil MD ANESTHESIA: Spinal. CLOSURE: 0 Vicryl fascia, 2-0 subcutaneous, lexi to skin. ESTIMATED BLOOD LOSS: Less than 100 mL. COMPLICATIONS: None. CONDITION: To Recovery in stable condition. DESCRIPTION OF THE PROCEDURE: The patient was taken to the operating room on January 01, 2018. IV Kefzol was administered prophylactically prior to the case. Anesthesia was administered by the anesthesiologist. The patient was then fastened to the fracture table with all prominences well padded. Excellent reduction of the fracture was confirmed in AP and lateral plane by use of fluoroscopy. The right hip area was then prepped and draped in the usual sterile fashion by use of a shower curtain. A small 2-cm longitudinal incision over the tip of the greater trochanter was incised, hemostasis achieved using Bovie cautery. Sharp dissection was carried through the fascia. A guidewire was drilled from the tip of the greater trochanter into the intramedullary canal past the fracture. This was directed by fluoroscopy in both the AP and lateral plane. This was overreamed with a proximal reamer. A short Gamma nail was then malleted down into place. Using the outrigger and a small stab incision laterally, a guidewire was drilled from the lateral aspect of the femur, through the damien, through the neck into the femoral head. Proper placement was confirmed in the AP and lateral plane by using the image intensifier. The guidewire was measured for length, reamed with a triple reamer, and then screwed with the appropriate-sized lag screw. With the traction removed, the compression device was used to compress the fracture. A set screw was placed from above in the dynamic fashion. Again using the outrigger and through a small stab incision distally, a distal hole was drilled, depth gauged and screwed with the appropriate length locking screw in the static hole. The outrigger was removed. The x-rays in the AP and lateral plane revealed excellent position of the hardware with excellent reduction of the fracture. All incisions were irrigated out with copious amounts of irrigation. The fascia was closed in 0 Vicryl, 2-0 subcutaneous, and lexi to the skin. Sterile pressure dressing was applied, patient awakened from anesthesia and transferred to Recovery in stable condition. No complications. Estimated blood loss negligible. Meredith SHOOK/[id number]
[2018-01-01] MEDS: DEXTROSE 5%-0.45% SALINE 1,000 ML IV SCH ×2 (13:30→18:36)
[2018-01-01] MEDS: LACTATED RINGERS SOLUTION 1,000 ML IV SCH (15:00)
[2018-01-01] MEDS: ACETAMINOPHEN 325 MG TABLET (FP) PO PRN (17:00)
[2018-01-01] MEDS ORDERED: DEXTROSE 5%-WATER - 50 ML IVPB ONE (18:09)
[2018-01-01] MEDS: CEFAZOLIN 1 GM in DEXTROSE 5%-WATER - 50 ML IVPB SCH (18:28)
[2018-01-01] MEDS ORDERED: CEFAZOLIN 1 GM in DEXTROSE 5%-WATER - 50 ML IVPB SCH (19:00)
[2018-01-02] MEDS: oxyCODONE HCL 5 MG TABLET PO PRN ×2 (01:03→09:46)
[2018-01-02] MEDS: LACTATED RINGERS SOLUTION 1,000 ML IV SCH ×2 (01:26→14:25)
[2018-01-02] MEDS ORDERED: DEXTROSE 5%-WATER - 50 ML IVPB ONE ×2 (02:19→09:42)
[2018-01-02] MEDS ORDERED: ceFAZolin SODIUM 1 GM VIAL ONE ×2 (02:19→09:42)
[2018-01-02] MEDS: CEFAZOLIN 1 GM in DEXTROSE 5%-WATER - 50 ML IVPB SCH ×2 (02:24→14:11)
[2018-01-02 08:01] LABS: HEMATOCRIT 25.8 % (32.4-45.2); HEMOGLOBIN 8.4 GM/dL (10.7-15.3); MCH 28.9 pg (25.7-33.7); MCHC 32.4 g/dl (32.0-36.0); MEAN CELL VOLUME 89.1 fl (80-96); MEAN PLT VOLUME 9.1 fl (7.5-11.1); PLATELET COUNT 84 K/MM3 (134-434); RBC 2.89 M/mm3 (3.60-5.2); RDW 12.6 % (11.6-15.6); WHITE BLOOD COUNT 5.4 K/mm3 (4.0-10.0)
[2018-01-02 08:37] LABS: BLOOD UREA NITROGEN 15 mg/dL (7-18); GLUCOSE,RANDOM 138 mg/dL (74-106)
[2018-01-02 08:38] LABS: ANION GAP 8 MMOL/L (8-16); CALCIUM 8.5 mg/dL (8.5-10.1); CHLORIDE 105 mmol/L (98-107); CO2 27 mmol/L (21-32); CREATININE 0.3 mg/dL (0.55-1.3); POTASSIUM 3.7 mmol/L (3.5-5.1); SODIUM 139 mmol/L (136-145)
[2018-01-02] MEDS: ENOXAPARIN NA (PORCINE) 40 MG/0.4 ML DISP.SYRIN SQ SCH (09:47)
[2018-01-02] MEDS ORDERED: ENOXAPARIN NA (PORCINE) 40 MG/0.4 ML DISP.SYRIN SQ SCH (10:00)
--- NOTE | 2018-01-02 10:45 | PN ---
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 (short form) - Note 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: seen and examined in bed no distress / c/o pain to right hip Vital Signs Period Temp Pulse Resp BP Sys/Kirk Pulse Ox Last 24 Hr 97.5 F-99.9 F 68-119 16-22 76-118/32-78 100-100 neck supple heart S1/S2 lungs clear bilat abd soft non tender ext dressing right hip dry clean LE +2 pulses / no calf tenderness CBC, BMP 01/02/18 07:00 01/02/18 07:00 Active Medications Acetaminophen (Tylenol -) 650 mg PO Q6H PRN PRN Reason: PAIN 1-5 Last Admin: 01/01/18 17:00 Dose: 650 mg Enoxaparin Sodium (Lovenox -) 40 mg SQ DAILY [facility] Last Admin: 01/02/18 09:47 Dose: 40 mg Fentanyl (Sublimaze Injection -) 50 mcg IVPUSH [id number] PRN PRN Reason: PAIN-PACU ORDER X 4 DOSES ONLY Cefazolin Sodium 1 gm/ (Dextrose) 50 mls @ 100 mls/hr IVPB Q8H [facility] Stop: 01/02/18 18:59 Last Admin: 01/02/18 02:24 Dose: 100 mls/hr Dextrose/Sodium Chloride (D5-1/2ns -) 1,000 mls @ 100 mls/hr IV ASDIR [facility] Last Admin: 01/01/18 18:36 Dose: Not Given Lactated Ringer's (Lactated Ringers Solution) 1,000 mls @ 75 mls/hr IV ASDIR [facility] Last Admin: 01/02/18 01:26 Dose: 75 mls/hr Ondansetron HCl (Zofran Injection) 4 mg IVPUSH Q6H PRN PRN Reason: NAUSEA AND/OR VOMITING Oxycodone HCl (Roxicodone -) 5 mg PO Q4H PRN PRN Reason: PAIN 6-10 Last Admin: 01/02/18 09:46 Dose: 5 mg Promethazine HCl (Phenergan Injection -) 12.5 mg IVPUSH Q6H PRN PRN Reason: NAUSEA-FOR RESCUE AFTER 15 MIN 87 y/o female with PMH dementia / HL / 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 Patient is able to provide hx, denies chest pain / lightheadedness / dizziness. # mechanical fall IT hip Fx- right s/p right IM gamma nail activity as per ortho will need STR -- family aware and would decide preference # Dementia at baseline Problem List - Problems (1) Intertrochanteric fracture of right hip Code(s): S72.141A - DISPLACED INTERTROCHANTERIC FRACTURE OF RIGHT FEMUR, INIT (2) Inability to ambulate due to hip Code(s): R26.2 - DIFFICULTY IN WALKING, NOT ELSEWHERE CLASSIFIED (3) Dementia Code(s): F03.90 - UNSPECIFIED DEMENTIA WITHOUT BEHAVIORAL DISTURBANCE (4) History of colon cancer Code(s): Z85.038 - PERSONAL HISTORY OF MALIGNANT NEOPLASM OF LARGE INTESTINE
--- NOTE | 2018-01-02 15:33 | PN ---
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 (short form) - Note 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: Anesthesia POD#1 S/P Right Hip cannulated Screw under Spinal anesthesia VSS,eating well ,no N/V,no complications reported. Yamini Yi MD.
[2018-01-03] MEDS: LACTATED RINGERS SOLUTION 1,000 ML IV SCH (04:06)
[2018-01-03] MEDS: ACETAMINOPHEN 325 MG TABLET (FP) PO PRN ×3 (04:18→22:34)
[2018-01-03 08:37] LABS: ANION GAP 8 MMOL/L (8-16); BLOOD UREA NITROGEN 10 mg/dL (7-18); CALCIUM 8.6 mg/dL (8.5-10.1); CHLORIDE 105 mmol/L (98-107); CO2 27 mmol/L (21-32); CREATININE 0.3 mg/dL (0.55-1.3); GLUCOSE,RANDOM 99 mg/dL (74-106); POTASSIUM 3.6 mmol/L (3.5-5.1); SODIUM 139 mmol/L (136-145)
[2018-01-03 09:29] LABS: BASO % 0.3 % (0-2.0); EOS % 1.1 % (0-4.5); HEMATOCRIT 21.3 % (32.4-45.2); LYMPH % 13.9 % (8-40); MCHC 32.5 g/dl (32.0-36.0); MEAN CELL VOLUME 89.3 fl (80-96); MEAN PLT VOLUME 9.8 fl (7.5-11.1); MONO % 8.1 % (3.8-10.2); NEUT % 76.6 % (42.8-82.8); PLATELET COUNT 93 K/MM3 (134-434); RBC 2.38 M/mm3 (3.60-5.2); RDW 12.8 % (11.6-15.6); WHITE BLOOD COUNT 4.6 K/mm3 (4.0-10.0)
[2018-01-03 09:42] LABS: HEMOGLOBIN 6.9 GM/dL (10.7-15.3)
--- NOTE | 2018-01-03 10:12 | PN ---
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 (short form) - Note 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: Ortho Pt seen and examined s/p right IM gamma nail pod #2 Selected Entries 01/03/18 06:35 Temperature 98 F Pulse Rate 110 H Respiratory 20 Rate Blood Pressure 95/45 L Laboratory Tests 01/03/18 07:00 WBC 4.6 Hgb 6.9 L* Hct 21.3 L D Plt Count 93 L dressing saturated, calf soft, nt nvi a/p transfuse 2 units prbcs f/u h/h PT wbat dvt ppx pain control d/c planning
--- NOTE | 2018-01-03 11:16 | PN ---
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 (short form) - Note 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: 87 y/o female found lying in bed. States that she is comfortable as long as she does not move. Unable to rate pain. Vital Signs Period Temp Pulse Resp BP Sys/Kirk Pulse Ox Last 24 Hr 98 F-101.2 F 105-114 18-20 88-106/42-64 100 CBC, BMP 01/03/18 07:00 01/03/18 07:00 HEENT- normocephalic Neck-supple Lungs- CTAB Heart- S1/S2 Abd- Soft, nt Ext- No LE edema Active Medications Acetaminophen (Tylenol -) 650 mg PO Q6H PRN PRN Reason: PAIN 1-5 Last Admin: 01/03/18 04:18 Dose: 650 mg Enoxaparin Sodium (Lovenox -) 40 mg SQ DAILY [facility] Last Admin: 01/02/18 09:47 Dose: 40 mg Fentanyl (Sublimaze Injection -) 50 mcg IVPUSH [id number] PRN PRN Reason: PAIN-PACU ORDER X 4 DOSES ONLY Dextrose/Sodium Chloride (D5-1/2ns -) 1,000 mls @ 100 mls/hr IV ASDIR [facility] Last Admin: 01/01/18 18:36 Dose: Not Given Lactated Ringer's (Lactated Ringers Solution) 1,000 mls @ 75 mls/hr IV ASDIR [facility] Last Admin: 01/03/18 04:06 Dose: 75 mls/hr Ondansetron HCl (Zofran Injection) 4 mg IVPUSH Q6H PRN PRN Reason: NAUSEA AND/OR VOMITING Oxycodone HCl (Roxicodone -) 5 mg PO Q4H PRN PRN Reason: PAIN 6-10 Last Admin: 01/02/18 09:46 Dose: 5 mg Promethazine HCl (Phenergan Injection -) 12.5 mg IVPUSH Q6H PRN PRN Reason: NAUSEA-FOR RESCUE AFTER 15 MIN # Hgb 6.9 Repeat CBC # s/p right IM gamma nail Ortho consult appreciated Able to bear weight # Dementia at baseline Case discussed with dtr who states that hgb was 14, then 8 in hosp and now 6. Referred for fish tender consult. Problem List - Problems (1) Intertrochanteric fracture of right hip Code(s): S72.141A - DISPLACED INTERTROCHANTERIC FRACTURE OF RIGHT FEMUR, INIT (2) Inability to ambulate due to hip Code(s): R26.2 - DIFFICULTY IN WALKING, NOT ELSEWHERE CLASSIFIED (3) Dementia Code(s): F03.90 - UNSPECIFIED DEMENTIA WITHOUT BEHAVIORAL DISTURBANCE (4) History of colon cancer Code(s): Z85.038 - PERSONAL HISTORY OF MALIGNANT NEOPLASM OF LARGE INTESTINE
[2018-01-03] MEDS: ENOXAPARIN NA (PORCINE) 40 MG/0.4 ML DISP.SYRIN SQ SCH (11:21)
[2018-01-03 11:39] LABS: BASO % 0.4 % (0-2.0); EOS % 0.9 % (0-4.5); HEMATOCRIT 22.2 % (32.4-45.2); HEMOGLOBIN 7.2 GM/dL (10.7-15.3); LYMPH % 12.8 % (8-40); MCHC 32.6 g/dl (32.0-36.0); MEAN CELL VOLUME 89.1 fl (80-96); MEAN PLT VOLUME 9.4 fl (7.5-11.1); NEUT % 78.9 % (42.8-82.8); PLATELET COUNT 106 K/MM3 (134-434); RBC 2.49 M/mm3 (3.60-5.2); RDW 12.9 % (11.6-15.6); WHITE BLOOD COUNT 5.2 K/mm3 (4.0-10.0)
[2018-01-03 13:31] LABS: RETICULOCYTES 1.95 % (0.5-1.5)
--- NOTE | 2018-01-03 14:36 | CONSULT ---
Consult Consult Specialty:: Heme/Onc Referred by:: Dr. Quispe Reason for Consultation:: Rapid drop in Hb - History of Present Illness Chief Complaint: s/p fall History of Present Illness: Patient is an 87F with PMH of HTN, HLD, Colon Ca s/p colon resection in 2013, Dementia, thymoma s/p thymectomy, presents to the hospital s/p fall found to have a fracture and patient went for right hip IM nailing on 01/01/2018. Patients Hb was 14 pre-op then yesterday went down to 8.4 post op. This morning the Hb was noted to be 6.9 and was repeated and noted to be 7.2. Today MCV is WNL platelets are 106 and retic count is 1.95, Corrected retic count is WNL and 1. In the chart it is noted she had an EBL of 50ml in the postop note and 100ml in the I/Os. Patient is on lovenox for DVT PPx. She has a history of nausea and per daughter was scoped and nothing was found. Although the med list states she is on a baby aspirin as outpatient daughter denies she is on it and due to dementia the patient does not know. She currently denies nausea vomiting fever chills chest pain SOB lightheadedness dizziness or GI symptoms. Per daughter and son at bedside no family history of cancer bleeding or clotting disorders. 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 Cardio/Vascular: Yes: Murmur Musculoskeletal: Yes: Osteoarthritis Additional Medical History: HTN HLD Dementia Colon Ca Thymoma - Past Surgical History Past Surgical History: Yes: Cholecystectomy, Colectomy Additional Surgical History: thymectomy - Alcohol/Substance Use Hx Alcohol Use: No - Smoking History Smoking history: Never smoked Have you smoked in the past 12 months: No - Social History ADL: Support Services History of Recent Travel: No Home Medications - Allergies Allergies/Adverse Reactions: Allergies Allergy/AdvReac Type Severity Reaction Status Date / Time codeine Allergy Verified 01/25/17 23:35 Penicillins Allergy Verified 01/25/17 23:35 - Home Medications Home Medications: Ambulatory Orders Acetaminophen [Tylenol .Extra-Strength -] 500 mg PO Q4H PRN 01/26/17 Aspirin [ASA -] 81 mg PO DAILY 11/25/17 Memantine HCl [Namenda -] 5 mg PO DAILY 01/26/17 Metoprolol Tartrate [Lopressor -] 25 mg PO BID 01/26/17 Mirtazapine [Remeron -] 15 mg PO HS 01/26/17 Family Disease History - Family Disease History Family History: Denies Review of Systems - Review of Systems Constitutional: reports: No Symptoms Eyes: reports: No Symptoms HENT: reports: No Symptoms Neck: reports: No Symptoms Cardiovascular: reports: No Symptoms Respiratory: reports: No Symptoms Gastrointestinal: reports: Nausea (occasional) Genitourinary: reports: No Symptoms Musculoskeletal: reports: No Symptoms Neurological: reports: No Symptoms Hematology/Lymphatic: reports: No Symptoms Physical Exam Vital Signs: Vital Signs Temperature 98 F 01/03/18 06:35 Pulse Rate 110 H 01/03/18 06:35 Respiratory Rate 20 01/03/18 06:35 Blood Pressure 95/45 L 01/03/18 06:35 O2 Sat by Pulse Oximetry (%) 100 01/02/18 21:00 Constitutional: Yes: Well Nourished, No Distress, Calm Eyes: Yes: PERRL, Other (conjunctival pallor) HENT: No: Thrush Neck: Yes: Supple. No: Lymphadenopathy Cardiovascular: Yes: Regular Rate and Rhythm, Murmur (4/6 systolic murmur), S1, S2 Respiratory: Yes: Regular, CTA Bilaterally Gastrointestinal: Yes: Soft, Hypoactive Bowel Sounds. No: Tenderness Renal/: No: CVA Tenderness - Left, CVA Tenderness - Right Extremities: Yes: Other (right hip incision C/D/I. Right thigh is edematous and slightly taut when compared to the left thigh. 2+ DP pulses bilaterally) Edema: Yes (right thigh) Wound/Incision: Yes: Clean/Dry Neurological: Yes: Alert, Cran Nerves II-XII Intact Psychiatric: Yes: Alert Labs: CBC, BMP 01/03/18 11:08 01/03/18 07:00 Imaging - Results X-ray: Report Reviewed, Image Reviewed Assessment/Plan 87F with multiple medical problems presents to the hospital s/p fall with right hip fracture s/p right hip IM nailing now with anemia. Problem List: s/p fall right hip intertrochanteric fracture s/p IM nailing Acute anemia- possibly related to surgical blood loss vs hemolysis although less likely vs bleeding HTN HLD Dementia history of colon Ca s/p colon resection history of thymoma s/p thymectomy Plan: Patient is currently on Lovenox. Needs judicous monitoring of CBC and bleeding given anemia and being on lovenox for DVT PPx given high risk of VTE post hip surgery. PAtient could be hemolyzing but given normal CBC pre-op this is unlikely Corrected retic count is 1.07 which is WNL. Possible patient does not have substrate to make RBCs so will check B12 folate iron panel direct gale LDH. Haptoglobin pending Will get stool for occult blood Patients right thigh is slightly taut and is edematous - could be post op vs bleeding. thighs are known to be able to hide a large amount of blood should to patient be bleeding into her thigh so will need frequent checks. Consider a CT of the leg to r/o hematoma if Hb continues to drop despite blood transfusions. Patient is currently receiving first unit of 2 of PRBCs so will ask lab to add on anemia work up to specimens drawn from this AM Will get post transfusion CBC after second unit tonight 1 hour after completion and if Hb [address] Núñez and strongly consider getting CT scan of the RLE and of the retroperitoneum
--- NOTE | 2018-01-03 16:50 | CON.GI ---
Consult Consult Specialty:: Gastroenterology Referred by:: Dr. Quispe Reason for Consultation:: Anemia - History of Present Illness Chief Complaint: Right hip fracture History of Present Illness: 87F fell at the [facility] fracturing her right hip for which she underwent surgery on 01/01/18. Her Hb has dropped from 14 to 7. No overt GI or bleeding has been seen. She denies abdominal pain but has not moved her bowels since before the surgery. Her sons tell me that she had a partial colectomy for colon cancer in 2013 at [facility]. This was complicated by postoperative bleeding and a "fistula". They believe that she required a 2nd operation but aren't sure. She has been having surveillance colonoscopy and has been free of recurrence. They tell me that she also had an EGD but are not aware of any significant findings. 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 No adjuvant therapy ) Heme/Onc: Yes: Cancer (colon cancer resected 2013 at [facility], Thymoma surgery and RT) Musculoskeletal: Yes: Osteoarthritis Additional Medical History: Pelvic fracture managed conservatively 2016 - Past Surgical History Past Surgical History: Yes: Cholecystectomy, Colectomy, Colonoscopy, Joint Replacement (right TKR), Upper Endoscopy Additional Surgical History: thymectomy - Alcohol/Substance Use Hx Alcohol Use: No History of Substance Use: reports: None - Smoking History Smoking history: Never smoked Have you smoked in the past 12 months: No - Social History Usual Living Arrangement: Assisted Living ADL: Support Services Place of : [facility] History of Recent Travel: No Home Medications - Allergies Allergies/Adverse Reactions: Allergies Allergy/AdvReac Type Severity Reaction Status Date / Time codeine Allergy Verified 01/25/17 23:35 Penicillins Allergy Verified 01/25/17 23:35 - Home Medications Home Medications: Ambulatory Orders Acetaminophen [Tylenol .Extra-Strength -] 500 mg PO Q4H PRN 01/26/17 Aspirin [ASA -] 81 mg PO DAILY 01/26/17 Memantine HCl [Namenda -] 5 mg PO DAILY 01/26/17 Metoprolol Tartrate [Lopressor -] 25 mg PO BID 01/26/17 Mirtazapine [Remeron -] 15 mg PO HS 01/26/17 Family Disease History - Family Disease History Family Disease History: Other: Father (lived into 80s), Mother (lived into 80s) Review of Systems Unable to obtain ROS, reason: dementia Physical Exam-GI Vital Signs: Vital Signs Temperature 98.9 F 01/03/18 15:03 Pulse Rate 107 H 01/03/18 15:03 Respiratory Rate 20 01/03/18 15:03 Blood Pressure 88/48 L 01/03/18 15:03 O2 Sat by Pulse Oximetry (%) 100 01/02/18 21:00 CBC,CMP WBC 5.2 K/mm3 (4.0-10.0) 01/03/18 11:08 RBC 2.49 M/mm3 (3.60-5.2) L 01/03/18 11:08 Hgb 7.2 GM/dL (10.7-15.3) L 01/03/18 11:08 Hct 22.2 % (32.4-45.2) L 01/03/18 11:08 MCV 89.1 fl (80-96) 01/03/18 11:08 MCH 29.0 pg (25.7-33.7) 01/03/18 11:08 MCHC 32.6 g/dl (32.0-36.0) 01/03/18 11:08 RDW 12.9 % (11.6-15.6) 01/03/18 11:08 Plt Count 106 K/MM3 (134-434) L 01/03/18 11:08 MPV 9.4 fl (7.5-11.1) 01/03/18 11:08 Absolute Neuts (auto) 4.1 K/mm3 (1.5-8.0) 01/03/18 11:08 Neutrophils % 78.9 % (42.8-82.8) 01/03/18 11:08 Lymphocytes % 12.8 % (8-40) 01/03/18 11:08 Monocytes % 7.0 % (3.8-10.2) 01/03/18 11:08 Eosinophils % 0.9 % (0-4.5) 01/03/18 11:08 Basophils % 0.4 % (0-2.0) 01/03/18 11:08 Nucleated RBC % 0 % (0-0) 01/03/18 11:08 Retic Count 1.95 % (0.5-1.5) H 01/03/18 11:08 Sodium 139 mmol/L (136-145) 01/03/18 07:00 Potassium 3.6 mmol/L (3.5-5.1) 01/03/18 07:00 Chloride 105 mmol/L (98-107) 01/03/18 07:00 Carbon Dioxide 27 mmol/L (21-32) 01/03/18 07:00 Anion Gap 8 MMOL/L (8-16) 01/03/18 07:00 BUN 10 mg/dL (7-18) 01/03/18 07:00 Creatinine 0.3 mg/dL (0.55-1.3) L 01/03/18 07:00 Creat Clearance w eGFR > 60 (>60) 01/03/18 07:00 Random Glucose 99 mg/dL (74-106) 01/03/18 07:00 Calcium 8.6 mg/dL (8.5-10.1) 01/03/18 07:00 Ferritin 157.2 ng/ml (8-388) 01/03/18 15:20 Total Bilirubin 0.4 mg/dL (0.2-1) 01/01/18 03:26 AST 16 U/L (15-37) 01/01/18 03:26 ALT 20 U/L (13-61) 01/01/18 03:26 Alkaline Phosphatase 65 U/L (45-117) 01/01/18 03:26 Total Protein 6.6 g/dl (6.4-8.2) 01/01/18 03:26 Albumin 3.7 g/dl (3.4-5.0) 01/01/18 03:26 Current Medications Generic Name Dose Route Start Last Admin Trade Name Freq PRN Reason Stop Dose Admin Acetaminophen 650 mg 01/01/18 16:57 01/03/18 12:25 Tylenol - PO 650 mg Q6H PRN Administration PAIN 1-5 Enoxaparin Sodium 40 mg 01/02/18 10:00 01/03/18 11:21 Lovenox - SQ 40 mg DAILY [facility] Administration Fentanyl 50 mcg 01/01/18 12:55 Sublimaze Injection - IVPUSH [id number] PRN PAIN-PACU ORDER X 4 DOSES ONLY Dextrose/Sodium Chloride 1,000 mls @ 100 mls/hr 01/01/18 12:55 01/01/18 18:36 D5-1/2ns - IV Not Given ASDIR [facility] Lactated Ringer's 1,000 mls @ 75 mls/hr 01/01/18 12:55 01/03/18 04:06 Lactated Ringers Solution IV 75 mls/hr ASD[facility] Administration Nystatin/Triamcinolone Acetonide 1 applic 01/03/18 15:53 Mycolog Ii Cream - TP Q8H PRN TO WAIST Ondansetron HCl 4 mg 01/01/18 12:55 Zofran Injection IVPUSH Q6H PRN NAUSEA AND/OR VOMITING Oxycodone HCl 5 mg 01/01/18 17:00 01/02/18 09:46 Roxicodone - PO 5 mg Q4H PRN Administration PAIN 6-10 Promethazine HCl 12.5 mg 01/01/18 12:55 Phenergan Injection - IVPUSH Q6H PRN NAUSEA-FOR RESCUE AFTER 15 MIN Constitutional: Yes: No Distress Eyes: Yes: Conjunctiva Clear HENT: Yes: Atraumatic Neck: Yes: Trachea Midline, Other (low anterior neck,uuper chest incision) Cardiovascular: Yes: Regular Rate and Rhythm, Murmur (3/6 early ADRIANE at base radiating into carotis holosystolic blowing murmur at apex) Respiratory: Yes: CTA Bilaterally Gastrointestinal Inspection: Yes: Distention, Scars (healed oblique RUQ, laparocopic and supraumbilical drain or ostomy incisions), Other (no flank hematomas or Trilla's sign) ...Auscultate: Yes: Normoactive Bowel Sounds ...Palpate: Yes: Soft, Other (nontender) ...Percussion: Yes: Tympanitic ...Rectal Exam: Yes: Guaiac Negative (brown guaiac negative stool) Extremities: Yes: Other (right hip bandaged) Neurological: Yes: Alert, Confusion (forgetful but gives simple responses) Labs: CBC, BMP 01/03/18 11:08 01/03/18 07:00 INR, PTT INR 1.05 (0.83-1.09) 10/31/18 06:55 Problem List - Problems (1) Anemia Assessment/Plan: There is no obvious active bleeding apparent. GI tract bleeding in a volume large enough to cause this big a Hb drop should have already manifested with hematochezia or melena. I suspect this reflects fracture and surgery related losses but if the Hb drops further a CT scan to exclude a retroperitoneal bleed will be considered. A PPI will be given to prevent a stress gastritis bleeding and miralax for her constipation. Code(s): D64.9 - ANEMIA, UNSPECIFIED (2) History of thymectomy Code(s): Z90.89 - ACQUIRED ABSENCE OF OTHER ORGANS (3) History of cholecystectomy Code(s): Z90.49 - ACQUIRED ABSENCE OF OTHER SPECIFIED PARTS OF DIGESTIVE TRACT (4) Constipation Code(s): K59.00 - CONSTIPATION, UNSPECIFIED (5) History of colon cancer Code(s): Z85.038 - PERSONAL HISTORY OF MALIGNANT NEOPLASM OF LARGE INTESTINE Assessment/Plan Follow CBCs PPI Miralax Observe for active bleeding. CT of abdomen if Hb drop further Situation discussed with 2 sons at the bedside.
--- NOTE | 2018-01-03 17:13 | PN ---
Teaching Attending Note Name of Resident: Chaparro Joy ATTENDING PHYSICIAN STATEMENT I saw and evaluated the patient. I reviewed the resident's note and discussed the case with the resident. I agree with the resident's findings and plan as documented. SUBJECTIVE: Patient seen and examined Agree with note as written by Dr. Joy. Fall in Hb from 14 gm to 8.4 g post surgery likely reflects fracture and bleeding . ( note 50 cc EBL reported) Will exclude blood loss with hemocult, do hemolytic work up and if fall in Hb/ Hct post transfusion while on lovenox would do CTof retroperitoneum and right hip. In interim, would maintain lovenox in view of post -op surgery and sedentary status. OBJECTIVE: ASSESSMENT AND PLAN:
[2018-01-03] MEDS: POLYETHYLENE GLYCOL 3350 119 GM BTL PO SCH (21:35)
[2018-01-03] MEDS: PANTOPRAZOLE 40 MG TABLET (FP) PO SCH (21:35)
[2018-01-03 22:38] LABS: BASO % 0.3 % (0-2.0); EOS % 0.8 % (0-4.5); HEMATOCRIT 30.6 % (32.4-45.2); HEMOGLOBIN 10.8 GM/dL (10.7-15.3); LYMPH % 11.7 % (8-40); MCHC 35.2 g/dl (32.0-36.0); MEAN PLT VOLUME 8.9 fl (7.5-11.1); MONO % 6.5 % (3.8-10.2); NEUT % 80.7 % (42.8-82.8); PLATELET COUNT 105 K/MM3 (134-434); RBC 3.48 M/mm3 (3.60-5.2); RDW 12.8 % (11.6-15.6); WHITE BLOOD COUNT 6.8 K/mm3 (4.0-10.0)
[2018-01-03] MEDS ORDERED: PT OWN MED DRAWER 7, Y5N ONE (23:06)
[2018-01-04] MEDS: LACTATED RINGERS SOLUTION 1,000 ML IV SCH (04:16)
[2018-01-04 07:58] LABS: BASO % 0.4 % (0-2.0); EOS % 2.5 % (0-4.5); HEMOGLOBIN 11.1 GM/dL (10.7-15.3); MCH 31.7 pg (25.7-33.7); MCHC 35.8 g/dl (32.0-36.0); MEAN CELL VOLUME 88.7 fl (80-96); MEAN PLT VOLUME 9.8 fl (7.5-11.1); NEUT % 78.1 % (42.8-82.8); PLATELET COUNT 105 K/MM3 (134-434); RDW 13.1 % (11.6-15.6); WHITE BLOOD COUNT 5.8 K/mm3 (4.0-10.0)
[2018-01-04 09:32] LABS: ALBUMIN 2.3 g/dl (3.4-5.0); ALK PHOS 50 U/L (45-117); ANION GAP 6 MMOL/L (8-16); BILIRUBIN,TOTAL 1.2 mg/dL (0.2-1); BLOOD UREA NITROGEN 8 mg/dL (7-18); CALCIUM 8.3 mg/dL (8.5-10.1); CHLORIDE 105 mmol/L (98-107); CO2 30 mmol/L (21-32); CREATININE 0.3 mg/dL (0.55-1.3); GLUCOSE,RANDOM 101 mg/dL (74-106); LDH 155 U/L (84-246); POTASSIUM 3.7 mmol/L (3.5-5.1); SGOT/AST 24 U/L (15-37); SGPT/ALT 20 U/L (13-61); SODIUM 140 mmol/L (136-145); TOT PROT 4.9 g/dl (6.4-8.2)
[2018-01-04] MEDS ORDERED: PT OWN MED DRAWER 7, Y5N ONE (09:49)
--- NOTE | 2018-01-04 09:53 | PN ---
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 (short form) - Note 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: 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: Patient seen and examined No complaints received 2 units of blood yesterday Active Medications Generic Name Dose Route Start Last Admin Trade Name Freq PRN Reason Stop Dose Admin Acetaminophen 650 mg 01/01/18 16:57 01/03/18 22:34 Tylenol - PO 650 mg Q6H PRN Administration PAIN 1-5 Enoxaparin Sodium 40 mg 01/02/18 10:00 01/03/18 11:21 Lovenox - SQ 40 mg DAILY [facility] Administration Fentanyl 50 mcg 01/01/18 12:55 Sublimaze Injection - IVPUSH [id number] PRN PAIN-PACU ORDER X 4 DOSES ONLY Dextrose/Sodium Chloride 1,000 mls @ 100 mls/hr 01/01/18 12:55 01/01/18 18:36 D5-1/2ns - IV Not Given [facility] Lactated Ringer's 1,000 mls @ 75 mls/hr 01/01/18 12:55 01/04/18 04:16 Lactated Ringers Solution IV 75 mls/hr [facility] Administration Nystatin/Triamcinolone Acetonide 1 applic 01/03/18 15:53 Mycolog Ii Cream - TP Q8H PRN TO WAIST Ondansetron HCl 4 mg 01/01/18 12:55 Zofran Injection IVPUSH Q6H PRN NAUSEA AND/OR VOMITING Oxycodone HCl 5 mg 01/01/18 17:00 01/02/18 09:46 Roxicodone - PO 5 mg Q4H PRN Administration PAIN 6-10 Pantoprazole Sodium 40 mg 01/03/18 22:00 01/03/18 21:35 Protonix - PO 40 mg BID [facility] Administration Polyethylene Glycol 17 gm 01/03/18 22:00 01/03/18 21:35 Miralax (For Daily Use) - PO 17 grams BID [facility] Administration Promethazine HCl 12.5 mg 01/01/18 12:55 Phenergan Injection - IVPUSH Q6H PRN NAUSEA-FOR RESCUE AFTER 15 MIN Vital Signs Period Temp Pulse Resp BP Sys/Kirk Pulse Ox Last 24 Hr 98.2 F-99.9 F 105-108 20-20 88-124/48-62 94-100 AFVSS comfortably lying in bed CBC, BMP 01/04/18 06:40 11/03/18 06:40 Labs: reviewed A/P Doing well Hb increased appropriately Suspect initial low Hb is due to blood loss, vs equalisation No evidence of hemolysis at this time will f/v
[2018-01-04] MEDS: ENOXAPARIN NA (PORCINE) 40 MG/0.4 ML DISP.SYRIN SQ SCH (10:05)
[2018-01-04] MEDS: POLYETHYLENE GLYCOL 3350 119 GM BTL PO SCH (10:06)
[2018-01-04] MEDS: PANTOPRAZOLE 40 MG TABLET (FP) PO SCH ×2 (10:07→21:21)
[2018-01-04] MEDS: ACETAMINOPHEN 325 MG TABLET (FP) PO PRN ×2 (10:07→21:21)
[2018-01-04] MEDS: NYSTATIN/TRIAMCINOLONE TOPICAL CREAM 15 GM TUBE TP PRN (10:16)
--- NOTE | 2018-01-04 11:38 | PN ---
GI 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 Subjective: GI note; Denies abdominal pain. Had a BM this AM. Hb is stable Laboratory Tests 01/03/18 01/03/18 01/03/18 07:00 11:08 22:30 Hgb 6.9 L* 7.2 L 10.8 01/04/18 06:40 Hgb 11.1 - Objective Vital Signs: Vital Signs Temperature 98.2 F 01/04/18 07:00 Pulse Rate 106 H 01/04/18 07:00 Respiratory Rate 20 01/04/18 07:00 Blood Pressure 124/62 01/04/18 07:00 O2 Sat by Pulse Oximetry (%) 94 L 01/03/18 21:25 Constitutional: Calm ...Auscultate: Yes: Normoactive Bowel Sounds ...Palpate: Yes: Soft, Other (nontender) Labs: CBC, BMP 01/04/18 06:40 01/04/18 06:40 INR, PTT INR 1.05 (0.83-1.09) 01/01/18 06:55 Problem List - Problems (1) History of colon cancer Code(s): Z85.038 - PERSONAL HISTORY OF MALIGNANT NEOPLASM OF LARGE INTESTINE (2) Anemia Assessment/Plan: No signs of overt GI bleeding or retroperitoneal hemorrhage. Hb stable. Will advance diet and cut back on Miralax Code(s): D64.9 - ANEMIA, UNSPECIFIED (3) Constipation Code(s): K59.00 - CONSTIPATION, UNSPECIFIED
--- NOTE | 2018-01-04 15:08 | PN ---
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 (short form) - Note 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: seen and examined in bed no distress / c/o pain to right hip Son Vital Signs Period Temp Pulse Resp BP Sys/Kirk Pulse Ox Last 24 Hr 98.2 F-99.9 F 98-108 18-20 88-124/48-62 94-95 neck supple heart S1/S2 lungs clear bilat abd soft non tender ext dressing right hip dry clean LE +2 pulses / no calf tenderness CBC, BMP 01/04/18 06:40 01/04/18 06:40 s/p transfusion 2 units PRBC 01/03/18 CBC, BMP 01/02/18 07:00 01/02/18 07:00 Active Medications Acetaminophen (Tylenol -) 650 mg PO Q6H PRN PRN Reason: PAIN 1-5 Last Admin: 01/04/18 10:07 Dose: 650 mg Enoxaparin Sodium (Lovenox -) 40 mg SQ DAILY [facility] Last Admin: 01/04/18 10:05 Dose: 40 mg Fentanyl (Sublimaze Injection -) 50 mcg IVPUSH [id number] PRN PRN Reason: PAIN-PACU ORDER X 4 DOSES ONLY Dextrose/Sodium Chloride (D5-1/2ns -) 1,000 mls @ 100 mls/hr IV ASDIR [facility] Last Admin: 01/01/18 18:36 Dose: Not Given Lactated Ringer's (Lactated Ringers Solution) 1,000 mls @ 75 mls/hr IV ASDIR [facility] Last Admin: 01/04/18 04:16 Dose: 75 mls/hr Nystatin/Triamcinolone Acetonide (Mycolog Ii Cream -) 1 applic TP Q8H PRN PRN Reason: TO WAIST Last Admin: 01/04/18 10:16 Dose: 1 applic Ondansetron HCl (Zofran Injection) 4 mg IVPUSH Q6H PRN PRN Reason: NAUSEA AND/OR VOMITING Oxycodone HCl (Roxicodone -) 5 mg PO Q4H PRN PRN Reason: PAIN 6-10 Last Admin: 01/02/18 09:46 Dose: 5 mg Pantoprazole Sodium (Protonix -) 40 mg PO BID [facility] Last Admin: 01/04/18 10:07 Dose: 40 mg Polyethylene Glycol (Miralax (For Daily Use) -) 17 gm PO DAILY [facility] Promethazine HCl (Phenergan Injection -) 12.5 mg IVPUSH Q6H PRN PRN Reason: NAUSEA-FOR RESCUE AFTER 15 MIN 87 y/o female with PMH dementia / HL / 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 Patient is able to provide hx, denies chest pain / lightheadedness / dizziness. # mechanical fall IT hip Fx- right s/p right IM gamma nail activity as per ortho will need STR -- family aware and would decide preference # anemia baseline about 6 months ago Hbg 9.9 Heme consulted / Gi consulted clinically no indication of acute bleed s/p transfusion 01/03/18 will tend h/h appreciate consultants anemia discussed with son -who is at bedside # Dementia at baseline Problem List - Problems (1) Intertrochanteric fracture of right hip Code(s): S72.141A - DISPLACED INTERTROCHANTERIC FRACTURE OF RIGHT FEMUR, INIT (2) Inability to ambulate due to hip Code(s): R26.2 - DIFFICULTY IN WALKING, NOT ELSEWHERE CLASSIFIED (3) Dementia Code(s): F03.90 - UNSPECIFIED DEMENTIA WITHOUT BEHAVIORAL DISTURBANCE (4) History of colon cancer Code(s): Z85.038 - PERSONAL HISTORY OF MALIGNANT NEOPLASM OF LARGE INTESTINE
[2018-01-05 07:50] LABS: BASO % 0.4 % (0-2.0); EOS % 3.7 % (0-4.5); HEMATOCRIT 34.6 % (32.4-45.2); HEMOGLOBIN 12.3 GM/dL (10.7-15.3); LYMPH % 14.1 % (8-40); MCH 31.6 pg (25.7-33.7); MCHC 35.5 g/dl (32.0-36.0); MEAN CELL VOLUME 89.1 fl (80-96); MEAN PLT VOLUME 9.4 fl (7.5-11.1); MONO % 6.6 % (3.8-10.2); NEUT % 75.2 % (42.8-82.8); PLATELET COUNT 138 K/MM3 (134-434); RBC 3.88 M/mm3 (3.60-5.2); RDW 13.2 % (11.6-15.6); WHITE BLOOD COUNT 4.4 K/mm3 (4.0-10.0)
[2018-01-05 08:06] LABS: SERUM IRON SATURATION 9 % (15-55); TOTAL IRON BINDING CAPACITY 205 ug/dL (250-450); UIBC 186 ug/dL (118-369)
[2018-01-05 08:41] LABS: ANION GAP 10 MMOL/L (8-16); BLOOD UREA NITROGEN 9 mg/dL (7-18); CALCIUM 8.6 mg/dL (8.5-10.1); CHLORIDE 104 mmol/L (98-107); CO2 27 mmol/L (21-32); CREATININE 0.3 mg/dL (0.55-1.3); GLUCOSE,RANDOM 98 mg/dL (74-106); POTASSIUM 3.8 mmol/L (3.5-5.1); SODIUM 141 mmol/L (136-145)
[2018-01-05] MEDS ORDERED: PT OWN MED DRAWER 7, Y5N ONE (09:40)
[2018-01-05] MEDS: POLYETHYLENE GLYCOL 3350 119 GM BTL PO SCH (09:44)
[2018-01-05] MEDS: PANTOPRAZOLE 40 MG TABLET (FP) PO SCH ×2 (09:44→21:14)
[2018-01-05] MEDS: ENOXAPARIN NA (PORCINE) 40 MG/0.4 ML DISP.SYRIN SQ SCH (09:44)
[2018-01-05] MEDS: ACETAMINOPHEN 325 MG TABLET (FP) PO PRN ×2 (09:45→21:14)
--- NOTE | 2018-01-05 10:01 | PN ---
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 (short form) - Note 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: 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: Patient seen and examined No complaints received 2 units of blood yesterday she is bit more confused today - hospital delirium ? Vital Signs Period Temp Pulse Resp BP Sys/Kirk Pulse Ox Last 24 Hr 98.1 F-98.2 F 96-118 18-20 100-160/58-80 AFVSS comfortably lying in bed Active Medications Generic Name Dose Route Start Last Admin Trade Name Freq PRN Reason Stop Dose Admin Acetaminophen 650 mg 01/01/18 16:57 01/05/18 09:45 Tylenol - PO 650 mg Q6H PRN Administration PAIN 1-5 Enoxaparin Sodium 40 mg 01/02/18 10:00 01/05/18 09:44 Lovenox - SQ 40 mg DAILY [facility] Administration Fentanyl 50 mcg 01/01/18 12:55 Sublimaze Injection - IVPUSH [id number] PRN PAIN-PACU ORDER X 4 DOSES ONLY Nystatin/Triamcinolone Acetonide 1 applic 01/03/18 15:53 01/04/18 10:16 Mycolog Ii Cream - TP 1 applic Q8H PRN Administration TO WAIST Ondansetron HCl 4 mg 01/01/18 12:55 Zofran Injection IVPUSH Q6H PRN NAUSEA AND/OR VOMITING Pantoprazole Sodium 40 mg 01/03/18 22:00 01/05/18 09:44 Protonix - PO 40 mg BID [facility] Administration Polyethylene Glycol 17 gm 01/05/18 10:00 01/05/18 09:44 Miralax (For Daily Use) - PO Not Given DAILY [facility] Promethazine HCl 12.5 mg 01/01/18 12:55 Phenergan Injection - IVPUSH Q6H PRN NAUSEA-FOR RESCUE AFTER 15 MIN CBC, BMP 01/05/18 06:40 01/05/18 06:40 Labs: reviewed A/P Doing well Hb increased appropriately No evidence of hemolysis at this time will f/v
--- NOTE | 2018-01-05 10:01 | PN ---
GI 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 Subjective: GI NOte: Eating breakfast. Had two BMs yesterday without blood. Hb up to 12. Confused - Objective Vital Signs: Vital Signs Temperature 98.2 F 01/05/18 05:40 Pulse Rate 118 H 01/05/18 05:40 Respiratory Rate 20 01/05/18 05:40 Blood Pressure 160/80 01/05/18 05:40 O2 Sat by Pulse Oximetry (%) 95 01/04/18 09:00 Laboratory Tests 01/03/18 01/03/18 01/04/18 11:08 22:30 06:40 Hgb 7.2 L 10.8 11.1 Retic Count 1.95 H BUN Creatinine Carcinoembryonic Ag 01/04/18 01/05/18 01/05/18 06:40 06:40 06:40 Hgb 12.3 Retic Count BUN 9 Creatinine 0.3 L Carcinoembryonic Ag Pending Constitutional: No Distress ...Auscultate: Yes: Normoactive Bowel Sounds ...Palpate: Yes: Soft, Other (nontender) Labs: CBC, BMP 01/05/18 06:40 01/05/18 06:40 INR, PTT INR 1.05 (0.83-1.09) 01/01/18 06:55 Assessment/Plan NO evidence of GI or intraperitoneal bleeding Problem List - Problems (1) Anemia Assessment/Plan: Hb is stable. No evidence of bleeding. Code(s): D64.9 - ANEMIA, UNSPECIFIED (2) History of colon cancer Code(s): Z85.038 - PERSONAL HISTORY OF MALIGNANT NEOPLASM OF LARGE INTESTINE (3) Constipation Code(s): K59.00 - CONSTIPATION, UNSPECIFIED
--- NOTE | 2018-01-05 14:14 | PN ---
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 (short form) - Note 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: seen and examined in bed no distress / no c/o pain / confused Grandson at bedside Vital Signs Period Temp Pulse Resp BP Sys/Kirk Pulse Ox Last 24 Hr 98.1 F-98.7 F 96-118 18-20 100-160/58-80 95 neck supple heart S1/S2 lungs clear bilat abd soft non tender ext dressing right hip dry clean LE +2 pulses / no calf tenderness CBC, BMP 01/05/18 06:40 01/05/18 06:40 CBC, BMP 01/04/18 06:40 01/04/18 06:40 s/p transfusion 2 units PRBC 01/03/18 CBC, [facility] 01/02/18 07:00 01/02/18 07:00 Active Medications Acetaminophen (Tylenol -) 650 mg PO Q6H PRN PRN Reason: PAIN 1-5 Last Admin: 01/05/18 09:45 Dose: 650 mg Enoxaparin Sodium (Lovenox -) 40 mg SQ DAILY [facility] Last Admin: 01/05/18 09:44 Dose: 40 mg Fentanyl (Sublimaze Injection -) 50 mcg IVPUSH [id number] PRN PRN Reason: PAIN-PACU ORDER X 4 DOSES ONLY Nystatin/Triamcinolone Acetonide (Mycolog Ii Cream -) 1 applic TP Q8H PRN PRN Reason: TO WAIST Last Admin: 01/04/18 10:16 Dose: 1 applic Ondansetron HCl (Zofran Injection) 4 mg IVPUSH Q6H PRN PRN Reason: NAUSEA AND/OR VOMITING Pantoprazole Sodium (Protonix -) 40 mg PO BID [facility] Last Admin: 01/05/18 09:44 Dose: 40 mg Polyethylene Glycol (Miralax (For Daily Use) -) 17 gm PO DAILY [facility] Last Admin: 01/05/18 09:44 Dose: Not Given Promethazine HCl (Phenergan Injection -) 12.5 mg IVPUSH Q6H PRN PRN Reason: NAUSEA-FOR RESCUE AFTER 15 MIN 87 y/o female with PMH dementia / HL / 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 Patient is able to provide hx, denies chest pain / lightheadedness / dizziness. # mechanical fall IT hip Fx- right s/p right IM gamma nail activity as per ortho will need STR -- family aware and would decide preference # anemia baseline about 6 months ago Hbg 9.9 Heme consulted / Gi consulted clinically no indication of acute bleed s/p transfusion 01/03/18 will tend h/h appreciate consultants no evidence of bleeding # Dementia at baseline Problem List - Problems (1) Intertrochanteric fracture of right hip Code(s): S72.141A - DISPLACED INTERTROCHANTERIC FRACTURE OF RIGHT FEMUR, INIT (2) Inability to ambulate due to hip Code(s): R26.2 - DIFFICULTY IN WALKING, NOT ELSEWHERE CLASSIFIED (3) Dementia Code(s): F03.90 - UNSPECIFIED DEMENTIA WITHOUT BEHAVIORAL DISTURBANCE (4) History of colon cancer Code(s): Z85.038 - PERSONAL HISTORY OF MALIGNANT NEOPLASM OF LARGE INTESTINE
[2018-01-06 07:55] LABS: BASO % 0.6 % (0-2.0); EOS % 3.3 % (0-4.5); HEMATOCRIT 31.4 % (32.4-45.2); HEMOGLOBIN 11.2 GM/dL (10.7-15.3); LYMPH % 15.4 % (8-40); MCH 31.6 pg (25.7-33.7); MCHC 35.6 g/dl (32.0-36.0); MEAN CELL VOLUME 88.9 fl (80-96); MONO % 8.4 % (3.8-10.2); NEUT % 72.3 % (42.8-82.8); PLATELET COUNT 148 K/MM3 (134-434); RBC 3.54 M/mm3 (3.60-5.2); RDW 12.9 % (11.6-15.6); WHITE BLOOD COUNT 4.1 K/mm3 (4.0-10.0)
--- NOTE | 2018-01-06 08:32 | PN ---
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 (short form) - Note 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: Ortho Pt seen and examined s/p right IM gamma nail Selected Entries 01/06/18 06:00 Temperature 98.3 F Pulse Rate 105 H Respiratory 18 Rate Blood Pressure 108/76 Laboratory Tests 01/06/18 06:30 WBC 4.1 Hgb 11.2 Hct 31.4 L Plt Count 148 dressing c/d/i, calf soft, nt nvi a/p PT wbat dvt ppx pain control d/c planning
--- NOTE | 2018-01-06 08:52 | DS ---
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 Patient is able to provide hx, denies chest pain / lightheadedness / dizziness. # mechanical fall IT hip Fx- right s/p right IM gamma nail activity as per ortho will need STR -- family aware and would decide preference # anemia baseline about 6 months ago Hbg 9.9 Heme consulted / Gi consulted clinically no indication of acute bleed s/p transfusion 01/03/18 will tend h/h appreciate consultants no evidence of bleeding # Dementia at baseline Constitutional: Yes: Well Nourished, No Distress, Calm Eyes: Yes: WNL, Conjunctiva Clear, EOM Intact HENT: Yes: Atraumatic, Normocephalic Neck: Yes: Supple, Trachea Midline Cardiovascular: Yes: WNL, Regular Rate and Rhythm Respiratory: Yes: WNL, CTA Bilaterally Gastrointestinal: Yes: WNL, Normal Bowel Sounds, Soft ...Rectal Exam: Yes: Deferred Renal/: Yes: WNL Breast(s): Yes: WNL Musculoskeletal: Yes: WNL Extremities: Yes: WNL Edema: No Peripheral Pulses WNL: Yes Integumentary: Yes: WNL Wound/Incision: Yes: Well Approximated, Dressing Dry and Intact Neurological: Yes: Pre-Existing Deficit Psychiatric: Yes: Alert, Oriented Labs: CBC, BMP 01/06/18 06:30 01/05/18 06:40 Discharge Summary Reason For Visit: FRACTURE OF HIP INABILITY TO AMBULATE Current Active Problems Anemia (Acute) Constipation (Acute) Dementia (Acute) History of colon cancer (Acute) Intertrochanteric fracture of right hip (Acute) Condition: Improved - Instructions Disposition: [facility] - Home Medications Comprehensive Discharge Medication List: Ambulatory Orders Acetaminophen [Tylenol .Extra-Strength -] 500 mg PO Q4H PRN 01/26/17 Aspirin [ASA -] 81 mg PO DAILY 01/26/17 Memantine HCl [Namenda -] 5 mg PO DAILY 01/26/17 Metoprolol Tartrate [Lopressor -] 25 mg PO BID 01/26/17 Mirtazapine [Remeron -] 15 mg PO HS 01/26/17
[2018-01-06] MEDS ORDERED: PT OWN MED DRAWER 7, Y5N ONE (10:54)
[2018-01-06] MEDS: POLYETHYLENE GLYCOL 3350 119 GM BTL PO SCH (11:14)
[2018-01-06] MEDS: PANTOPRAZOLE 40 MG TABLET (FP) PO SCH ×2 (11:14→21:20)
[2018-01-06] MEDS: ENOXAPARIN NA (PORCINE) 40 MG/0.4 ML DISP.SYRIN SQ SCH (11:15)
[2018-01-06] MEDS: NYSTATIN/TRIAMCINOLONE TOPICAL CREAM 15 GM TUBE TP PRN (11:30)
[2018-01-06] MEDS ORDERED: FUROSEMIDE 40 MG/4 ML INJECTABLE VIAL IVPUSH ONE (17:14)
[2018-01-06] MEDS ORDERED: POTASSIUM CHLORIDE TABS 20 MEQ TABLET.ER (FP) PO ONE (17:14)
--- NOTE | 2018-01-06 17:21 | PN ---
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 (short form) - Note 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: discharge documentation completed this am patient comfortable examined in her room -- refer to note At time of transfer to [facility] vitals significant for desaturation to 90% on room air. case discussed with nurse - discharge on hold Hypoxia on room air ordered CXR O2 2liters CXR reviewed - + pleaural effusion with increased marking suggestive of fluid overload Plan IV lasix X1 replace K+ repeat CXR and labs in am Problem List - Problems (1) Intertrochanteric fracture of right hip Code(s): S72.141A - DISPLACED INTERTROCHANTERIC FRACTURE OF RIGHT FEMUR, INIT (2) Inability to ambulate due to hip Code(s): R26.2 - DIFFICULTY IN WALKING, NOT ELSEWHERE CLASSIFIED (3) Dementia Code(s): F03.90 - UNSPECIFIED DEMENTIA WITHOUT BEHAVIORAL DISTURBANCE (4) History of colon cancer Code(s): Z85.038 - PERSONAL HISTORY OF MALIGNANT NEOPLASM OF LARGE INTESTINE
[2018-01-06] MEDS: ACETAMINOPHEN 325 MG TABLET (FP) PO PRN (21:20)
[2018-01-07 07:08] LABS: BASO % 0.7 % (0-2.0); EOS % 3.5 % (0-4.5); HEMATOCRIT 32.1 % (32.4-45.2); HEMOGLOBIN 11.4 GM/dL (10.7-15.3); LYMPH % 15.2 % (8-40); MCH 31.6 pg (25.7-33.7); MCHC 35.5 g/dl (32.0-36.0); MEAN CELL VOLUME 88.9 fl (80-96); MONO % 8.6 % (3.8-10.2); PLATELET COUNT 164 K/MM3 (134-434); RBC 3.61 M/mm3 (3.60-5.2); RDW 13.1 % (11.6-15.6); WHITE BLOOD COUNT 4.2 K/mm3 (4.0-10.0)
[2018-01-07 07:40] LABS: ANION GAP 5 MMOL/L (8-16); BLOOD UREA NITROGEN 11 mg/dL (7-18); CALCIUM 8.7 mg/dL (8.5-10.1); CHLORIDE 103 mmol/L (98-107); CO2 33 mmol/L (21-32); CREATININE 0.4 mg/dL (0.55-1.3); GLUCOSE,RANDOM 100 mg/dL (74-106); POTASSIUM 4.3 mmol/L (3.5-5.1); SODIUM 140 mmol/L (136-145)
[2018-01-07] MEDS: ACETAMINOPHEN 325 MG TABLET (FP) PO PRN ×2 (08:41→14:54)
[2018-01-07] MEDS ORDERED: PT OWN MED DRAWER 7, Y5N ONE (10:06)
[2018-01-07] MEDS: POLYETHYLENE GLYCOL 3350 119 GM BTL PO SCH (10:09)
[2018-01-07] MEDS: PANTOPRAZOLE 40 MG TABLET (FP) PO SCH (10:10)
[2018-01-07] MEDS: ENOXAPARIN NA (PORCINE) 40 MG/0.4 ML DISP.SYRIN SQ SCH (10:11)
--- NOTE | 2018-01-07 11:32 | PN ---
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 (short form) - Note 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: patient seen and examined in room discussed care with RN O2 removed -- RA 95%-96% incentive spirometry 500 Patient comfortable / no distress Vital Signs Period Temp Pulse Resp BP Sys/Kirk Pulse Ox Last 24 Hr 97.6 F-98.2 F 96-105 18-20 90-107/40-59 96 neck no JVD heart S1/S2 lung clear bilat abd soft non tender ext no edema right hip surgical site clean CBC, BMP 01/07/18 06:30 01/07/18 06:30 CXR improved given lasix last night and K replacement Active Medications Acetaminophen (Tylenol -) 650 mg PO Q6H PRN PRN Reason: PAIN 1-5 Last Admin: 01/07/18 08:41 Dose: 650 mg Enoxaparin Sodium (Lovenox -) 40 mg SQ DAILY [facility] Last Admin: 01/07/18 10:11 Dose: 40 mg Fentanyl (Sublimaze Injection -) 50 mcg IVPUSH [id number] PRN PRN Reason: PAIN-PACU ORDER X 4 DOSES ONLY Nystatin/Triamcinolone Acetonide (Mycolog Ii Cream -) 1 applic TP Q8H PRN PRN Reason: TO WAIST Last Admin: 01/06/18 11:30 Dose: 1 applic Ondansetron HCl (Zofran Injection) 4 mg IVPUSH Q6H PRN PRN Reason: NAUSEA AND/OR VOMITING Pantoprazole Sodium (Protonix -) 40 mg PO BID [facility] Last Admin: 01/07/18 10:10 Dose: 40 mg Polyethylene Glycol (Miralax (For Daily Use) -) 17 gm PO DAILY [facility] Last Admin: 01/07/18 10:09 Dose: 17 gm Promethazine HCl (Phenergan Injection -) 12.5 mg IVPUSH Q6H PRN PRN Reason: NAUSEA-FOR RESCUE AFTER 15 MIN Medications and labs reviewed patient OK for transfer to [facility] today Problem List - Problems (1) Intertrochanteric fracture of right hip Code(s): S72.141A - DISPLACED INTERTROCHANTERIC FRACTURE OF RIGHT FEMUR, INIT (2) Inability to ambulate due to hip Code(s): R26.2 - DIFFICULTY IN WALKING, NOT ELSEWHERE CLASSIFIED (3) Dementia Code(s): F03.90 - UNSPECIFIED DEMENTIA WITHOUT BEHAVIORAL DISTURBANCE (4) History of colon cancer Code(s): Z85.038 - PERSONAL HISTORY OF MALIGNANT NEOPLASM OF LARGE INTESTINE
[2018-01-07 17:02] VITALS: TEMP 97.8
[2018-01-07 17:15] VITALS: BP 109/66; PULSE 95
== END 2018-01-07 15:47 | DRG 481 ==
LOC: JER 01:50 → JERBED 06:43 → J8W 09:36
PROVIDERS: ADMIT Family Medicine; ATTEND Family Medicine
PROC: 0QS606Z Reposition Right Upper Femur with Intramedullary Internal Fixation Device, Open Approach (ICD-10-PCS; principal; 2018-01-01 12:00)
PROC: 30233N1 Transfusion of Nonautologous Red Blood Cells into Peripheral Vein, Percutaneous Approach (ICD-10-PCS; 2018-01-03)
DX: S72.141A Displaced intertrochanteric fracture of right femur, initial encounter for closed fracture (principal); J90 Pleural effusion, not elsewhere classified; D62 Acute posthemorrhagic anemia; F03.90 Unspecified dementia, unspecified severity, without behavioral disturbance, psychotic disturbance, mood disturbance, and anxiety; Z85.038 Personal history of other malignant neoplasm of large intestine; I10 Essential (primary) hypertension; K59.00 Constipation, unspecified; E78.5 Hyperlipidemia, unspecified; W19.XXXA Unspecified fall, initial encounter; Y93.9 Activity, unspecified; Y92.89 Other specified places as the place of occurrence of the external cause; Y99.9 Unspecified external cause status
CPT/HCPCS: 36415; 36430; 71045-TC-FY; 72170-TC-FY; 73502-TC-RT; 73552-TC-RT-FY; 73562-TC-RT-FY; 76000-TC-FY; 80048; 80053; 82272; 82378; 82607; 82728; 82746; 83010; 83540; 83550; 83615; 84443; 85025; 85027; 85044; 85610; 85730; 86850; 86880; 86900; 86901; 86922; 93005; 93010; 94760; 97116-GP; 97162-GP; 99282-25; P9038; P9058

== ENCOUNTER 2018-01-28 10:27 | Inpatient (IN) | payer OTHER, MEDICARE ==
[2018-01-28] MEDS ORDERED: ONDANSETRON 4 MG/2 ML VIAL IVPUSH PRN (15:37)
[2018-01-28] MEDS: DEXTROSE 5%-0.45% SALINE 1,000 ML IV SCH (15:46)
[2018-01-28 17:51] LABS: INR 1.14 (0.83-1.09); PROTHROMBIN TIME (PATIENT) 13.5 SEC (9.7-13.0)
[2018-01-28 17:55] LABS: ALBUMIN 2.9 g/dl (3.4-5.0); ALK PHOS 111 U/L (45-117); AMYLASE 28 U/L (25-115); ANION GAP 7 MMOL/L (8-16); BILIRUBIN,TOTAL 0.9 mg/dL (0.2-1); BLOOD UREA NITROGEN 23 mg/dL (7-18); CALCIUM 8.7 mg/dL (8.5-10.1); CHLORIDE 100 mmol/L (98-107); CO2 31 mmol/L (21-32); CREATININE 0.5 mg/dL (0.55-1.3); GLUCOSE,RANDOM 99 mg/dL (74-106); LIPASE 82 U/L (73-393); POTASSIUM 3.5 mmol/L (3.5-5.1); SGOT/AST 14 U/L (15-37); SGPT/ALT 13 U/L (13-61); SODIUM 139 mmol/L (136-145); TOT PROT 5.6 g/dl (6.4-8.2)
--- NOTE | 2018-01-28 18:47 | CON.GI ---
Consult Consult Specialty:: Gastroenterology Referred by:: Dr Quispe Reason for Consultation:: small bowel obstruction - History of Present Illness Chief Complaint: vomiting History of Present Illness: 87F was transferred to the [facility] ER last night after developing vomiting at the [facility]. There a CT revealed an SBO with transition in the mid to distal small bowel. She had a colon cancer resection at [facility] in 2013 followed by postoperative bleeding associated with a "fistula". The family is not sure whether or not a 2nd surgery had to be done. She had an EGD but the results are not known. She did have subsequent colonoscopy screening and has been free of recurrent cancer. Family is not sure when the last was done. I met Terri when she dropped her Hb from 14 to 7 following right hip fracture surgery on 01/01/18. No GI bleeding was found and the losses are felt related to her fracture and surgery. 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 mitral regurgitation) Gastrointestinal: Yes: Cancer (partial colectomy 2013 [facility]. 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 Pelvic fracture managed conservatively 2016 - Past Surgical History Past Surgical History: Yes: Cholecystectomy, Colectomy, Colonoscopy, Joint Replacement (right TKR), Upper Endoscopy Additional Surgical History: 01/01/18 right hip ORIF. Thymoma surgery - Alcohol/Substance Use Hx Alcohol Use: No History of Substance Use: reports: None - Smoking History Smoking history: Never smoked Have you smoked in the past 12 months: No - Social History Usual Living Arrangement: Assisted Living ADL: Support Services Place of : [facility] History of Recent Travel: No Home Medications - Allergies Allergies/Adverse Reactions: Allergies Allergy/AdvReac Type Severity Reaction Status Date / Time codeine Allergy Verified 01/25/17 23:35 Penicillins Allergy Verified 01/25/17 23:35 - Home Medications Home Medications: Ambulatory Orders Acetaminophen [Tylenol .Extra-Strength -] 500 mg PO Q4H PRN 01/26/17 Aspirin [ASA -] 81 mg PO DAILY 01/26/17 Memantine HCl [Namenda -] 5 mg PO DAILY 11/25/17 Metoprolol Tartrate [Lopressor -] 25 mg PO BID 01/26/17 Mirtazapine [Remeron -] 15 mg PO HS 01/26/17 Nystatin/Triamcinolone Top Cr [Mycolog II -] 1 applic TP Q8H PRN applic Pantoprazole Sodium [Protonix -] 40 mg PO BID 30 Days #30 tablet.ec 01/06/18 Polyethylene Glycol 3350 [Miralax 119 gm Btl -] 17 gm PO DAILY bottle 01/06/18 Family Disease History - Family Disease History Family Disease History: Other: Father (lived into 80s), Mother (lived into 80s) Review of Systems Unable to obtain ROS, reason: dementia Physical Exam-GI Vital Signs: Vital Signs Temperature 98.5 F 01/28/18 13:56 Pulse Rate 99 H 01/28/18 13:56 Respiratory Rate 18 01/28/18 13:56 Blood Pressure 101/60 01/28/18 13:56 O2 Sat by Pulse Oximetry (%) 95 01/28/18 13:56 CBC,CMP Sodium 139 mmol/L (136-145) 01/28/18 16:00 Potassium 3.5 mmol/L (3.5-5.1) 01/28/18 16:00 Chloride 100 mmol/L (98-107) 01/28/18 16:00 Carbon Dioxide 31 mmol/L (21-32) 01/28/18 16:00 Anion Gap 7 MMOL/L (8-16) L 01/28/18 16:00 BUN 23 mg/dL (7-18) H 01/28/18 16:00 Creatinine 0.5 mg/dL (0.55-1.3) L 01/28/18 16:00 Creat Clearance w eGFR > 60 (>60) 01/28/18 16:00 Random Glucose 99 mg/dL (74-106) 01/28/18 16:00 Calcium 8.7 mg/dL (8.5-10.1) 01/28/18 16:00 Total Bilirubin 0.9 mg/dL (0.2-1) 01/28/18 16:00 AST 14 U/L (15-37) L 01/28/18 16:00 ALT 13 U/L (13-61) 01/28/18 16:00 Alkaline Phosphatase 111 U/L (45-117) 01/28/18 16:00 Total Protein 5.6 g/dl (6.4-8.2) L 01/28/18 16:00 Albumin 2.9 g/dl (3.4-5.0) L 01/28/18 16:00 Total Amylase 28 U/L (25-115) 01/28/18 16:00 Lipase 82 U/L (73-393) 01/28/18 16:00 Current Medications Generic Name Dose Route Start Last Admin Trade Name Freq PRN Reason Stop Dose Admin Dextrose/Sodium Chloride 1,000 mls @ 100 mls/hr 01/28/18 15:45 01/28/18 15:46 D5-1/2ns - IV 100 mls/hr ASDIR [facility] Administration Ondansetron HCl 4 mg 01/28/18 15:37 Zofran Injection IVPUSH Q6H PRN NAUSEA AND/OR VOMITING Constitutional: Yes: Anxious Eyes: Yes: Conjunctiva Clear HENT: Yes: Normocephalic Neck: Yes: Supple, Other (low anterior neck and upper chest incision) Cardiovascular: Yes: Regular Rate and Rhythm, Murmur (3/6 holosystolic murmur at LLSB and apex radiating into base, carotids and tato abdomen) Respiratory: Yes: CTA Bilaterally Gastrointestinal Inspection: Yes: Distention, Scars (healed oblique RUQ, laparoscopic and supraumbilical drain or ostomy incisions) ...Auscultate: Yes: Hyperactive Bowel Sounds ...Palpate: Yes: Soft, Other (nontender) ...Rectal Exam: Yes: Guaiac Negative (minimal brown g neg stool) Edema: No Neurological: Yes: Alert, Confusion Labs: CBC, BMP 01/28/18 16:00 INR, PTT INR 1.14 (0.83-1.09) H 01/28/18 16:00 Imaging - Results X-ray: Report Reviewed (Neno Mota Name: [facility] DEPARTMENT OF RADIOLOGY Phys: Cody Cheney MD : [id number] Age: 87 Sex: F [facility] Acct: [id number] Loc: [address] Exam Date: 01/28/18 Status: [place] [address] Unit Number: [id number] EXAM#: TYPE/EXAM: RESULT: [id number] RAD/ABDOMEN [id number] Abdomen: Small bowel obstruction 2 views of the abdomen reveal previous right hip pinning, patent SI joints, clear lung bases, sternal sutures, sharp angles and no sign of free air. There are some air distended loops of small bowel seen centrally and a small bowel or partial small bowel obstruction may be present. Correlation recommended. Further evaluation with CT is suggested. Reported By: Arnold Lozano MD 01/28/181647 Technologist: Yury Laboy Transcribed Date/Time : 01/28/181647 Mixer Operator Helper Hot Metal: Arnold Lozano Printed Date/Time: By: Signed by: Arnold Lozano Signed on: 28-Jan-2018 16:49) Problem List - Problems (1) Small bowel obstruction Assessment/Plan: The X ray and abdominal findings are consistent with small bowel obstruction. I inserted an 18 Fr Oceana sump NG tube and yielded 1100cc of bilious fluid. The situation was discussed with the son, Colten. Code(s): K56.609 - UNSP INTESTNL OBST, UNSP TO PARTIAL VERSUS COMPLETE OBST (2) Anemia Code(s): D64.9 - ANEMIA, UNSPECIFIED (3) Dementia Code(s): F03.90 - UNSPECIFIED DEMENTIA WITHOUT BEHAVIORAL DISTURBANCE (4) History of colon cancer Assessment/Plan: Given SBO will defer surveillance discussion Code(s): Z85.038 - PERSONAL HISTORY OF MALIGNANT NEOPLASM OF LARGE INTESTINE Assessment/Plan NG inserted to manage SBO IV fluids FUA in AM Already seen by Dr Cheney
[2018-01-28] MEDS ORDERED: ACETAMINOPHEN 1000 MG/100 ML VIAL (NON FORMULARY) IVPB ONE (19:07)
--- NOTE | 2018-01-28 22:17 | CONSULT ---
Consult Consult Specialty:: Surgery Referred by:: Shefali Moe MD Reason for Consultation:: Intestinal obstruction. patient had been seen aat [facility]. - History of Present Illness Chief Complaint: Abdominal pain and vomiting x 3 days. 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 mitral regurgitation) Gastrointestinal: Yes: Cancer (partial colectomy 2013 [facility]. 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 Pelvic fracture managed conservatively 2016 - Past Surgical History Past Surgical History: Yes: Cholecystectomy, Colectomy, Colonoscopy, Joint Replacement (right TKR), Upper Endoscopy Additional Surgical History: 01/01/18 right hip ORIF. Thymoma surgery - Alcohol/Substance Use Hx Alcohol Use: No History of Substance Use: reports: None - Smoking History Smoking history: Never smoked Have you smoked in the past 12 months: No - Social History Usual Living Arrangement: Assisted Living ADL: Support Services History of Recent Travel: No Home Medications - Allergies Allergies/Adverse Reactions: Allergies Allergy/AdvReac Type Severity Reaction Status Date / Time codeine Allergy Verified 01/25/17 23:35 Penicillins Allergy Verified 01/25/17 23:35 - Home Medications Home Medications: Ambulatory Orders Acetaminophen [Tylenol .Extra-Strength -] 500 mg PO Q4H PRN 01/26/17 Aspirin [ASA -] 81 mg PO DAILY 01/26/17 Memantine HCl [Namenda -] 5 mg PO DAILY 01/26/17 Metoprolol Tartrate [Lopressor -] 25 mg PO BID 01/26/17 Mirtazapine [Remeron -] 15 mg PO HS 01/26/17 Nystatin/Triamcinolone Top Cr [Mycolog II -] 1 applic TP Q8H PRN applic Pantoprazole Sodium [Protonix -] 40 mg PO BID 30 Days #30 tablet.ec 01/06/18 Polyethylene Glycol 3350 [Miralax 119 gm Btl -] 17 gm PO DAILY bottle 01/06/18 Family Disease History - Family Disease History Family Disease History: Other: Father (lived into 80s), Mother (lived into 80s) Physical Exam Vital Signs: Vital Signs Temperature 97.6 F 01/28/18 21:44 Pulse Rate 93 H 01/28/18 21:44 Respiratory Rate 18 01/28/18 13:56 Blood Pressure 95/56 L 01/28/18 21:44 O2 Sat by Pulse Oximetry (%) 95 01/28/18 13:56 Labs: CBC, BMP 01/28/18 16:00 Imaging - Results X-ray: Report Reviewed Problem List - Problems (1) Small bowel obstruction Code(s): K56.609 - UNSP INTESTNL OBST, UNSP TO PARTIAL VERSUS COMPLETE OBST (2) Anemia Code(s): D64.9 - ANEMIA, UNSPECIFIED Qualifiers: Anemia type: iron deficiency Iron deficiency anemia type: unspecified iron deficiency Qualified Code(s): D50.9 - Iron deficiency anemia, unspecified (3) Constipation Code(s): K59.00 - CONSTIPATION, UNSPECIFIED Assessment/Plan Patient was seen and examined at [facility] from where she was transferred to [facility]. She hadrefused placement of NG tube over there and had earlier refused to alloew the nurse to place one, Abdominal X-ray is consistent with small intestinal obstruction. hydration , follow up abdominal X-ray.
--- NOTE | 2018-01-29 01:02 | HP ---
Admitting History and Physical - Admission History of Present Illness: patient is 87 y/o female with PMH of HTN / Colon CA s/p resection 2013 cx with fistula ? 2nd surgery ( family doesnt remeber) / s/p fall 12/2017 resulting in right hip fx -- s/p ORIF cx by anemia. She was transfered from [facility] early am with c/o abdominal pain, nausea, vomiting to [facility] where she was evaluated and admitted with SBO. Patient was seen earlier at [facility] by Dr Velasquez and Dr Cheney, she was diagnosed with SBO, CT revealed an SBO with transition in the mid to distal small bowel. Patient is followed by [facility] -family states she had colonoscopy and was cancer free, however family is unable to determine date of last colonoscopy. Patient was transferred to [facility] later in the day at family request. Dr Cheney recommended NGT placement at time of his evaluation ( 9 am) and discussed with family who declined until after patient was transferred. NGT was placed hours later after transfer and after family allowed insertion. . 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 mitral regurgitation) Gastrointestinal: Yes: Cancer (partial colectomy 2013 [facility]. No adjuvant therapy ) ...: No Heme/Onc: Yes: Cancer (colon cancer resected 2013 at [facility], Thymoma surgery and RT) Musculoskeletal: Yes: Osteoarthritis - Past Surgical History Past Surgical History: Yes: Cholecystectomy, Colectomy, Colonoscopy, Joint Replacement (right TKR), Upper Endoscopy - Smoking History Smoking history: Never smoked Have you smoked in the past 12 months: No - Alcohol/Substance Use Hx Alcohol Use: No History of Substance Use: reports: None - Social History Usual Living Arrangement: Yes: Assisted Living ADL: Support Services History of Recent Travel: No Home Medications - Allergies Allergies/Adverse Reactions: Allergies Allergy/AdvReac Type Severity Reaction Status Date / Time codeine Allergy Verified 01/25/17 23:35 Penicillins Allergy Verified 01/25/17 23:35 - Home Medications Home Medications: Ambulatory Orders Acetaminophen [Tylenol .Extra-Strength -] 500 mg PO Q4H PRN 01/26/17 Aspirin [ASA -] 81 mg PO DAILY 11/25/17 Memantine HCl [Namenda -] 5 mg PO DAILY 01/26/17 Metoprolol Tartrate [Lopressor -] 25 mg PO BID 01/26/17 Mirtazapine [Remeron -] 15 mg PO HS 01/26/17 Nystatin/Triamcinolone Top Cr [Mycolog II -] 1 applic TP Q8H PRN applic Pantoprazole Sodium [Protonix -] 40 mg PO BID 30 Days #30 tablet.ec 01/06/18 Polyethylene Glycol 3350 [Miralax 119 gm Btl -] 17 gm PO DAILY bottle 01/06/18 Family Disease History - Family Disease History Family Disease History: Other: Father (lived into 80s), Mother (lived into 80s) Review of Systems Unable to obtain ROS, reason: dementia - Review of Systems Constitutional: reports: Fever. denies: Chills (?) HENT: denies: Difficult Swallowing Gastrointestinal: reports: Abdominal Pain, Nausea, Vomiting. denies: Diarrhea, Vomiting Blood Physical Examination Vital Signs: Vital Signs Temperature 98.7 F 01/28/18 22:46 Pulse Rate 108 H 01/28/18 22:46 Respiratory Rate 20 01/28/18 22:46 Blood Pressure 122/63 01/28/18 22:46 O2 Sat by Pulse Oximetry (%) 95 01/28/18 13:56 Labs: CBC, BMP 01/28/18 16:00 Problem List - Problems (1) Nausea & vomiting Code(s): R11.2 - NAUSEA WITH VOMITING, UNSPECIFIED (2) Small bowel obstruction Code(s): K56.609 - UNSP INTESTNL OBST, UNSP TO PARTIAL VERSUS COMPLETE OBST (3) Anemia Code(s): D64.9 - ANEMIA, UNSPECIFIED Qualifiers: Anemia type: iron deficiency Iron deficiency anemia type: unspecified iron deficiency Qualified Code(s): D50.9 - Iron deficiency anemia, unspecified (4) Constipation Code(s): K59.00 - CONSTIPATION, UNSPECIFIED (5) Dementia Code(s): F03.90 - UNSPECIFIED DEMENTIA WITHOUT BEHAVIORAL DISTURBANCE (6) History of colon cancer Code(s): Z85.038 - PERSONAL HISTORY OF MALIGNANT NEOPLASM OF LARGE INTESTINE
[2018-01-29] MEDS: DEXTROSE 5%-0.45% SALINE 1,000 ML IV SCH ×2 (01:50→13:01)
[2018-01-29 08:52] LABS: HEMATOCRIT 37.3 % (32.4-45.2); HEMOGLOBIN 12.2 GM/dL (10.7-15.3); MCH 29.3 pg (25.7-33.7); MCHC 32.8 g/dl (32.0-36.0); MEAN CELL VOLUME 89.3 fl (80-96); MEAN PLT VOLUME 8.7 fl (7.5-11.1); PLATELET COUNT 150 K/MM3 (134-434); RBC 4.18 M/mm3 (3.60-5.2); WHITE BLOOD COUNT 4.6 K/mm3 (4.0-10.0)
[2018-01-29 09:39] LABS: ALBUMIN 2.7 g/dl (3.4-5.0); ALK PHOS 103 U/L (45-117); ANION GAP 6 MMOL/L (8-16); BILIRUBIN,TOTAL 0.6 mg/dL (0.2-1); BLOOD UREA NITROGEN 13 mg/dL (7-18); CALCIUM 8.5 mg/dL (8.5-10.1); CHLORIDE 102 mmol/L (98-107); CO2 31 mmol/L (21-32); CREATININE 0.4 mg/dL (0.55-1.3); GLUCOSE,RANDOM 96 mg/dL (74-106); POTASSIUM 3.3 mmol/L (3.5-5.1); SGOT/AST 12 U/L (15-37); SGPT/ALT 11 U/L (13-61); SODIUM 139 mmol/L (136-145); TOT PROT 5.2 g/dl (6.4-8.2)
[2018-01-29] MEDS ORDERED: POTASSIUM CHLORIDE 20 MEQ PREMIX IVPB 100 ML IVPB ONE (12:03)
--- NOTE | 2018-01-29 12:14 | PN ---
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 (short form) - Note 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: patient seen and examined NGT in place / draining bilious material feeling "more comfortable " aide at bedside Vital Signs Period Temp Pulse Resp BP Sys/Kirk Pulse Ox Last 24 Hr 97.6 F-98.7 F 93-108 18-20 95-122/56-65 95-95 Intake & Output 01/26/18 01/27/18 01/28/18 01/29/18 23:59 23:59 23:59 23:59 Intake Total 0 1200 Output Total 1250 150 Balance -1250 1050 Weight 130 lb 7 oz 134 lb [address] tp LCS neck suppple heart s1/s2 lung clear bilat abd - soft decreased BS / no tenderness illicited lexi in place at surgical site of ORIF Ext no edema / no calf tenderness Laboratory Last Values WBC 4.6 K/mm3 (4.0-10.0) 01/29/18 08:20 RBC 4.18 M/mm3 (3.60-5.2) 01/29/18 08:20 Hgb 12.2 GM/dL (10.7-15.3) 01/29/18 08:20 Hct 37.3 % (32.4-45.2) D 01/29/18 08:20 MCV 89.3 fl (80-96) 01/29/18 08:20 MCH 29.3 pg (25.7-33.7) 01/29/18 08:20 MCHC 32.8 g/dl (32.0-36.0) 01/29/18 08:20 RDW 14.0 % (11.6-15.6) 01/29/18 08:20 Plt Count 150 K/MM3 (134-434) 01/29/18 08:20 MPV 8.7 fl (7.5-11.1) 01/29/18 08:20 PT with INR 13.50 SEC (9.7-13.0) H 01/28/18 16:00 INR 1.14 (0.83-1.09) H 01/28/18 16:00 Sodium 139 mmol/L (136-145) 01/29/18 08:30 Potassium 3.3 mmol/L (3.5-5.1) L 01/29/18 08:30 Chloride 102 mmol/L (98-107) 01/29/18 08:30 Carbon Dioxide 31 mmol/L (21-32) 01/29/18 08:30 Anion Gap 6 MMOL/L (8-16) L 01/29/18 08:30 BUN 13 mg/dL (7-18) 01/29/18 08:30 Creatinine 0.4 mg/dL (0.55-1.3) L 01/29/18 08:30 Creat Clearance w eGFR > 60 (>60) 01/29/18 08:30 Random Glucose 96 mg/dL (74-106) 01/29/18 08:30 Calcium 8.5 mg/dL (8.5-10.1) 01/29/18 08:30 Total Bilirubin 0.6 mg/dL (0.2-1) 01/29/18 08:30 AST 12 U/L (15-37) L 01/29/18 08:30 ALT 11 U/L (13-61) L 01/29/18 08:30 Alkaline Phosphatase 103 U/L (45-117) 01/29/18 08:30 Total Protein 5.2 g/dl (6.4-8.2) L 01/29/18 08:30 Albumin 2.7 g/dl (3.4-5.0) L 01/29/18 08:30 Total Amylase 28 U/L (25-115) 01/28/18 16:00 Lipase 82 U/L (73-393) 01/28/18 16:00 FUA dilated loops of small bowel c/w partial SBO Active Medications Dextrose/Sodium Chloride (D5-1/2ns -) 1,000 mls @ 100 mls/hr IV ASDIR MORIAH Last Admin: 01/29/18 01:50 Dose: 100 mls/hr Potassium Chloride (Potassium Chloride 10 Meq Premix Ivpb -) 10 meq in 100 mls @ 100 mls/hr IVPB Q60M MORIAH Stop: 01/29/18 15:44 Ondansetron HCl (Zofran Injection) 4 mg IVPUSH Q6H PRN PRN Reason: NAUSEA AND/OR VOMITING # SBO appreciate Surgical and GI eval and follow up continue NGT to LCS ice chips PRN discussed with patient and aide need for continued NGT / NPO Problem List - Problems (1) Nausea & vomiting Code(s): R11.2 - NAUSEA WITH VOMITING, UNSPECIFIED (2) Small bowel obstruction Code(s): K56.609 - UNSP INTESTNL OBST, UNSP TO PARTIAL VERSUS COMPLETE OBST (3) Anemia Code(s): D64.9 - ANEMIA, UNSPECIFIED Qualifiers: Anemia type: iron deficiency Iron deficiency anemia type: unspecified iron deficiency Qualified Code(s): D50.9 - Iron deficiency anemia, unspecified (4) Constipation Code(s): K59.00 - CONSTIPATION, UNSPECIFIED (5) Dementia Code(s): F03.90 - UNSPECIFIED DEMENTIA WITHOUT BEHAVIORAL DISTURBANCE (6) History of colon cancer Code(s): Z85.038 - PERSONAL HISTORY OF MALIGNANT NEOPLASM OF LARGE INTESTINE
--- NOTE | 2018-01-29 12:41 | PN ---
GI 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 Subjective: GI NOte: No vomiting overnight. Terri denies pain. She did not pull the NG our. Has put out only 260cc since the original 1400cc. FUA reveals persistent SBO - Objective Vital Signs: Vital Signs Temperature 97.8 F 01/29/18 09:07 Pulse Rate 94 H 01/29/18 09:07 Respiratory Rate 20 01/29/18 09:07 Blood Pressure 114/65 01/29/18 09:07 O2 Sat by Pulse Oximetry (%) 95 01/28/18 21:00 Laboratory Tests 01/29/18 01/29/18 08:20 08:30 WBC 4.6 Hgb 12.2 Potassium 3.3 L Constitutional: Calm, Other (NG in place) Gastrointestinal Inspection: Yes: Distention ...Auscultate: Yes: Hypoactive Bowel Sounds ...Palpate: Yes: Soft, Other (nontender) Labs: CBC, BMP 01/29/18 08:20 01/29/18 08:30 INR, PTT INR 1.14 (0.83-1.09) H 01/28/18 16:00 Assessment/Plan Continue NG suctioning for SBO IV fluids Replace KCL FUA in AM Problem List - Problems (1) Small bowel obstruction Code(s): K56.609 - UNSP INTESTNL OBST, UNSP TO PARTIAL VERSUS COMPLETE OBST (2) Anemia Code(s): D64.9 - ANEMIA, UNSPECIFIED Qualifiers: Anemia type: iron deficiency Iron deficiency anemia type: unspecified iron deficiency Qualified Code(s): D50.9 - Iron deficiency anemia, unspecified (3) Dementia Code(s): F03.90 - UNSPECIFIED DEMENTIA WITHOUT BEHAVIORAL DISTURBANCE (4) History of colon cancer Code(s): Z85.038 - PERSONAL HISTORY OF MALIGNANT NEOPLASM OF LARGE INTESTINE
[2018-01-29] MEDS: KCL 10 MEQ IVPB 10 MEQ/100 ML INFUS.BAG IVPB SCH ×3 (12:57→15:11)
--- NOTE | 2018-01-29 15:27 | PN ---
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, Physician History of Present Illness: Patient admitted with small intestinal obstruction. - Current Medication List Current Medications: Active Medications Dextrose/Sodium Chloride (D5-1/2ns -) 1,000 mls @ 100 mls/hr IV ASDIR MORIAH Last Admin: 01/29/18 13:01 Dose: 100 mls/hr Potassium Chloride (Potassium Chloride 10 Meq Premix Ivpb -) 10 meq in 100 mls @ 100 mls/hr IVPB Q60M MORIAH Stop: 01/29/18 15:44 Last Admin: 01/29/18 15:11 Dose: 100 mls/hr Ondansetron HCl (Zofran Injection) 4 mg IVPUSH Q6H PRN PRN Reason: NAUSEA AND/OR VOMITING - Objective Vital Signs: Vital Signs Temperature 97.8 F 01/29/18 09:07 Pulse Rate 94 H 01/29/18 09:07 Respiratory Rate 20 01/29/18 09:07 Blood Pressure 114/65 01/29/18 09:07 O2 Sat by Pulse Oximetry (%) 95 01/28/18 21:00 Labs: CBC, BMP 01/29/18 08:20 01/29/18 08:30 INR, PTT INR 1.14 (0.83-1.09) H 01/28/18 16:00 Problem List - Problems (1) Small bowel obstruction Code(s): K56.609 - UNSP INTESTNL OBST, UNSP TO PARTIAL VERSUS COMPLETE OBST (2) Anemia Code(s): D64.9 - ANEMIA, UNSPECIFIED Qualifiers: Anemia type: iron deficiency Iron deficiency anemia type: unspecified iron deficiency Qualified Code(s): D50.9 - Iron deficiency anemia, unspecified (3) Constipation Code(s): K59.00 - CONSTIPATION, UNSPECIFIED Assessment/Plan Patient is comfortable, has not passed flatus. Does not c/o abdominal pain. Abdomen is less distended, soft v, notb tender. Abdominal X-ray still suggestive of small bowel obstruction. Continue nasogastric aspiration , Hydration, follow up abdominal X-ray tomorrow.. ? Partial small intestinal obstruction. WBC is normal.
[2018-01-30] MEDS: DEXTROSE 5%-0.45% SALINE 1,000 ML IV SCH ×3 (06:43→22:10)
[2018-01-30 07:37] LABS: BASO % 0.8 % (0-2.0); EOS % 4.3 % (0-4.5); HEMATOCRIT 37.6 % (32.4-45.2); HEMOGLOBIN 12.2 GM/dL (10.7-15.3); LYMPH % 10.3 % (8-40); MCHC 32.6 g/dl (32.0-36.0); MEAN CELL VOLUME 89.1 fl (80-96); MEAN PLT VOLUME 9.3 fl (7.5-11.1); MONO % 8.6 % (3.8-10.2); PLATELET COUNT 126 K/MM3 (134-434); RBC 4.21 M/mm3 (3.60-5.2); RDW 13.9 % (11.6-15.6); WHITE BLOOD COUNT 5.3 K/mm3 (4.0-10.0)
[2018-01-30 08:02] LABS: ALBUMIN 2.8 g/dl (3.4-5.0); ALK PHOS 105 U/L (45-117); AMYLASE 31 U/L (25-115); ANION GAP 7 MMOL/L (8-16); BILIRUBIN,TOTAL 0.8 mg/dL (0.2-1); BLOOD UREA NITROGEN 5 mg/dL (7-18); CALCIUM 8.6 mg/dL (8.5-10.1); CHLORIDE 103 mmol/L (98-107); CO2 30 mmol/L (21-32); CREATININE 0.3 mg/dL (0.55-1.3); GLUCOSE,RANDOM 113 mg/dL (74-106); LIPASE 100 U/L (73-393); POTASSIUM 3.2 mmol/L (3.5-5.1); SGOT/AST 11 U/L (15-37); SGPT/ALT 11 U/L (13-61); SODIUM 140 mmol/L (136-145); TOT PROT 5.2 g/dl (6.4-8.2)
--- NOTE | 2018-01-30 20:05 | PN ---
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, Physician - Current Medication List Current Medications: Active Medications Dextrose/Sodium Chloride (D5-1/2ns -) 1,000 mls @ 100 mls/hr IV ASDIR MORIAH Last Admin: 01/30/18 14:22 Dose: 100 mls/hr Ondansetron HCl (Zofran Injection) 4 mg IVPUSH Q6H PRN PRN Reason: NAUSEA AND/OR VOMITING - Objective Vital Signs: Vital Signs Temperature 98.1 F 01/30/18 14:25 Pulse Rate 97 H 01/30/18 14:25 Respiratory Rate 20 01/30/18 14:25 Blood Pressure 110/59 L 01/30/18 14:25 O2 Sat by Pulse Oximetry (%) 95 01/30/18 09:00 Labs: CBC, BMP 01/30/18 06:40 01/30/18 06:40 INR, PTT INR 1.14 (0.83-1.09) H 01/28/18 16:00 Problem List - Problems (1) Small bowel obstruction Code(s): K56.609 - UNSP INTESTNL OBST, UNSP TO PARTIAL VERSUS COMPLETE OBST (2) Anemia Code(s): D64.9 - ANEMIA, UNSPECIFIED Qualifiers: Anemia type: iron deficiency Iron deficiency anemia type: unspecified iron deficiency Qualified Code(s): D50.9 - Iron deficiency anemia, unspecified (3) Constipation Code(s): K59.00 - CONSTIPATION, UNSPECIFIED Assessment/Plan Surgery follow up: Patient is comfortable, has no abdominal pain. NG drainage 400 ml. Abdomen is soft , not tender, no distention of abdomen noted. Has not passed flatus or had bowel movement. Abdominal Xray still shows small bowel obstruction . WBC is normal. Will do abdominal CT scan with oral contrast tomorrow am. Patients family is with the patient when examined. ? partial small bowel obstruction.
--- NOTE | 2018-01-30 20:58 | PN ---
GI 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 Subjective: GI NOte: NG output just 450cc today but FUA reveals no improvement. No flatus as per Clarenceanjelica. I discussed the situation with Olivia and her son Colten who is at her bedside. I explained that we will get a CT scan tomorrow and again discussed the potential need for surgery to resolve this SBO. - Objective Vital Signs: Vital Signs Temperature 98.1 F 01/30/18 14:25 Pulse Rate 97 H 01/30/18 14:25 Respiratory Rate 20 01/30/18 14:25 Blood Pressure 110/59 L 01/30/18 14:25 O2 Sat by Pulse Oximetry (%) 95 01/30/18 09:00 Constitutional: Calm, Other (NG in place) ...Auscultate: Yes: Hypoactive Bowel Sounds ...Palpate: Yes: Soft, Other (nontender) Labs: CBC, BMP 01/30/18 06:40 01/30/18 06:40 INR, PTT INR 1.14 (0.83-1.09) H 01/28/18 16:00 Assessment/Plan Continue NG suctioning for SBO IV fluids Replace KCL CT scan in AM Problem List - Problems (1) Small bowel obstruction Code(s): K56.609 - UNSP INTESTNL OBST, UNSP TO PARTIAL VERSUS COMPLETE OBST (2) Anemia Code(s): D64.9 - ANEMIA, UNSPECIFIED Qualifiers: Anemia type: iron deficiency Iron deficiency anemia type: unspecified iron deficiency Qualified Code(s): D50.9 - Iron deficiency anemia, unspecified (3) Dementia Code(s): F03.90 - UNSPECIFIED DEMENTIA WITHOUT BEHAVIORAL DISTURBANCE (4) History of colon cancer Code(s): Z85.038 - PERSONAL HISTORY OF MALIGNANT NEOPLASM OF LARGE INTESTINE
[2018-01-30] MEDS: KCL 10 MEQ IVPB 10 MEQ/100 ML INFUS.BAG IVPB SCH ×2 (22:11→23:25)
[2018-01-31 07:52] LABS: HEMATOCRIT 36.8 % (32.4-45.2); HEMOGLOBIN 13.1 GM/dL (10.7-15.3); MCH 31.1 pg (25.7-33.7); MCHC 35.6 g/dl (32.0-36.0); MEAN CELL VOLUME 87.3 fl (80-96); MEAN PLT VOLUME 9.8 fl (7.5-11.1); PLATELET COUNT 149 K/MM3 (134-434); RBC 4.22 M/mm3 (3.60-5.2); RDW 13.7 % (11.6-15.6); WHITE BLOOD COUNT 8.5 K/mm3 (4.0-10.0)
[2018-01-31 08:22] LABS: INR 1.23 (0.83-1.09); PROTHROMBIN TIME (PATIENT) 14.5 SEC (9.7-13.0)
[2018-01-31 08:32] LABS: ALBUMIN 2.7 g/dl (3.4-5.0); ALK PHOS 112 U/L (45-117); ANION GAP 7 MMOL/L (8-16); BILIRUBIN,TOTAL 1.5 mg/dL (0.2-1); BLOOD UREA NITROGEN 6 mg/dL (7-18); CHLORIDE 100 mmol/L (98-107); CO2 29 mmol/L (21-32); CREATININE 0.3 mg/dL (0.55-1.3); GLUCOSE,RANDOM 118 mg/dL (74-106); POTASSIUM 3.6 mmol/L (3.5-5.1); SGOT/AST 18 U/L (15-37); SGPT/ALT 14 U/L (13-61); SODIUM 135 mmol/L (136-145); TOT PROT 5.6 g/dl (6.4-8.2)
--- NOTE | 2018-01-31 10:58 | PN ---
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 (short form) - Note 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: 87 y/o female found lying in bed. Aide present. Pt pulled out NG tube again last night. Ct scan needed with contrast. Vital Signs Period Temp Pulse Resp BP Sys/Kirk Pulse Ox Last 24 Hr 98.0 F-99.0 F 86-113 18-20 105-122/59-66 95 CBC, BMP 01/31/18 06:50 01/31/18 06:50 HEENT-Normocephalic Neck-supple Lungs-CTAB Heart-S1/S2 Abd-soft Ext-Neg LE edema Active Medications Dextrose/Sodium Chloride (D5-1/2ns -) 1,000 mls @ 100 mls/hr IV ASDIR MORIAH Last Admin: 01/30/18 22:10 Dose: 100 mls/hr Ondansetron HCl (Zofran Injection) 4 mg IVPUSH Q6H PRN PRN Reason: NAUSEA AND/OR VOMITING # SBO Pt pulled out NG tube last night ice chips PRN discussed with patient and aide need for continued NGT / NPO Last FUA shows partial SBO Plan: NGT needed as pt is very high risk for surgery. Problem List - Problems (1) Nausea & vomiting Code(s): R11.2 - NAUSEA WITH VOMITING, UNSPECIFIED (2) Small bowel obstruction Code(s): K56.609 - UNSP INTESTNL OBST, UNSP TO PARTIAL VERSUS COMPLETE OBST (3) Anemia Code(s): D64.9 - ANEMIA, UNSPECIFIED Qualifiers: Anemia type: iron deficiency Iron deficiency anemia type: unspecified iron deficiency Qualified Code(s): D50.9 - Iron deficiency anemia, unspecified (4) Constipation Code(s): K59.00 - CONSTIPATION, UNSPECIFIED (5) Dementia Code(s): F03.90 - UNSPECIFIED DEMENTIA WITHOUT BEHAVIORAL DISTURBANCE (6) History of colon cancer Code(s): Z85.038 - PERSONAL HISTORY OF MALIGNANT NEOPLASM OF LARGE INTESTINE
--- NOTE | 2018-01-31 13:02 | PN ---
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 (short form) - Note 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: 1 NATHALIE S/P RIGHT GAMMA NAIL ADMITTED FOR BOWEL OBSTRUCTION RLE: INCISION CLEAN AND DRY ----> LAUREL DCED CALF SOFT AND NT NVI PAINLESS PROM RIGHT HIP IMP: DOING PLAN: WBAT, NEW X-RAYS ORDERED
--- NOTE | 2018-01-31 13:28 | PN ---
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, Physician - Current Medication List Current Medications: Active Medications Dextrose/Sodium Chloride (D5-1/2ns -) 1,000 mls @ 100 mls/hr IV ASDIR MORIAH Last Admin: 01/30/18 22:10 Dose: 100 mls/hr Ondansetron HCl (Zofran Injection) 4 mg IVPUSH Q6H PRN PRN Reason: NAUSEA AND/OR VOMITING - Objective Vital Signs: Vital Signs Temperature 99.0 F 01/31/18 06:00 Pulse Rate 113 H 01/31/18 06:00 Respiratory Rate 18 01/31/18 06:00 Blood Pressure 105/66 01/31/18 06:00 O2 Sat by Pulse Oximetry (%) 95 01/30/18 22:00 Labs: CBC, BMP 01/31/18 06:50 01/31/18 06:50 INR, PTT INR 1.23 (0.83-1.09) H 01/31/18 06:50 Problem List - Problems (1) Small bowel obstruction Code(s): K56.609 - UNSP INTESTNL OBST, UNSP TO PARTIAL VERSUS COMPLETE OBST (2) Anemia Code(s): D64.9 - ANEMIA, UNSPECIFIED Qualifiers: Anemia type: iron deficiency Iron deficiency anemia type: unspecified iron deficiency Qualified Code(s): D50.9 - Iron deficiency anemia, unspecified (3) Constipation Code(s): K59.00 - CONSTIPATION, UNSPECIFIED Assessment/Plan Surgery: Patient is out of bed in chair. Has no abdominal pain , no nausea, no vomiting, Has not had a bowel movement of passed flatus. Abdomen is soft , but distended, \ Not tender. NG tube pulled out. Patient is drinking contrast for abdominal CT scan. discussed with patients son , and have made him aware of patient's condition. Intestinal obstruction.
--- NOTE | 2018-01-31 20:53 | PN ---
GI 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 Subjective: GI Note: Olivia pulled out her NG tube overnight. Her CT scan reveals a mild partial SBO. She did have a BM today. She has had no vomiting or pain since the NG was removed. I received a call from Dr. Max Sesay a surgeon at [facility] to inform me that the family initiated a transfer to his service through one of the administrators there. I spoke by phone with Colten her son earlier in the day. I informed him of the CT findings and that although improved a persistent mild SBO cannot be excluded. I told him that Dr Sesay had contacted me and was in the process of arranging a transfer. Colten told me that he needed to discuss it with other family members. Tonight the nursing staff informs me that the family opted against the transfer tonight and wants to reconsider in the AM . Olivia is not aware of her status but does deny abdominal pain and tells me that she is hungry - Objective Vital Signs: Vital Signs Temperature 99.5 F 01/31/18 09:00 Pulse Rate 116 H 01/31/18 09:00 Respiratory Rate 18 01/31/18 09:00 Blood Pressure 114/59 L 01/31/18 09:00 O2 Sat by Pulse Oximetry (%) 95 01/31/18 09:00 Laboratory Tests 01/29/18 01/31/18 01/31/18 08:20 06:50 06:50 WBC 4.6 8.5 Potassium 3.6 BUN 6 L Creatinine 0.3 L Total Bilirubin 1.5 H C-Reactive Protein 01/31/18 06:50 WBC Potassium BUN Creatinine Total Bilirubin C-Reactive Protein 9.5 H Constitutional: Other (confused but calm) Gastrointestinal Inspection: Yes: Distention ...Auscultate: Yes: Normoactive Bowel Sounds ...Palpate: Yes: Soft, Other (nontender) ...Percussion: Yes: Tympanitic Labs: CBC, BMP 01/31/18 06:50 01/31/18 06:50 INR, PTT INR 1.23 (0.83-1.09) H 01/31/18 06:50 Assessment/Plan Clinically Olivia appears to have a resolving SBO so will leave NG out Will order FUA for the AM Dr Alegria will be covering this weekend. Problem List - Problems (1) Small bowel obstruction Code(s): K56.609 - UNSP INTESTNL OBST, UNSP TO PARTIAL VERSUS COMPLETE OBST (2) Anemia Code(s): D64.9 - ANEMIA, UNSPECIFIED Qualifiers: Anemia type: iron deficiency Iron deficiency anemia type: unspecified iron deficiency Qualified Code(s): D50.9 - Iron deficiency anemia, unspecified (3) Dementia Code(s): F03.90 - UNSPECIFIED DEMENTIA WITHOUT BEHAVIORAL DISTURBANCE (4) History of colon cancer Code(s): Z85.038 - PERSONAL HISTORY OF MALIGNANT NEOPLASM OF LARGE INTESTINE
[2018-02-01 07:34] LABS: BASO % 0.2 % (0-2.0); EOS % 0.9 % (0-4.5); HEMATOCRIT 36.9 % (32.4-45.2); MCHC 32.4 g/dl (32.0-36.0); MEAN CELL VOLUME 89.3 fl (80-96); MEAN PLT VOLUME 9.4 fl (7.5-11.1); MONO % 7.3 % (3.8-10.2); NEUT % 84.6 % (42.8-82.8); PLATELET COUNT 143 K/MM3 (134-434); RBC 4.14 M/mm3 (3.60-5.2); RDW 13.7 % (11.6-15.6)
[2018-02-01 08:15] LABS: ALBUMIN 2.4 g/dl (3.4-5.0); ALK PHOS 99 U/L (45-117); ANION GAP 7 MMOL/L (8-16); BLOOD UREA NITROGEN 11 mg/dL (7-18); CALCIUM 8.7 mg/dL (8.5-10.1); CHLORIDE 100 mmol/L (98-107); CO2 28 mmol/L (21-32); CREATININE 0.4 mg/dL (0.55-1.3); GLUCOSE,RANDOM 128 mg/dL (74-106); POTASSIUM 3.7 mmol/L (3.5-5.1); SGOT/AST 11 U/L (15-37); SGPT/ALT 13 U/L (13-61); SODIUM 136 mmol/L (136-145); TOT PROT 5.4 g/dl (6.4-8.2)
--- NOTE | 2018-02-01 12:51 | PN ---
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 (short form) - Note 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: Pt seen at bedside; CT scan and Xrays reviewed, case discussed with Dr Cheney. Pt had BM this morning. Abdomen: normal bowel sounds, soft, not distended, not tender. Will begin clear liquids and advance diet as tolerated.
--- NOTE | 2018-02-01 12:56 | PN ---
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, Physician - Current Medication List Current Medications: Active Medications Dextrose/Sodium Chloride (D5-1/2ns -) 1,000 mls @ 100 mls/hr IV ASDIR MORIAH Last Admin: 01/30/18 22:10 Dose: 100 mls/hr Ondansetron HCl (Zofran Injection) 4 mg IVPUSH Q6H PRN PRN Reason: NAUSEA AND/OR VOMITING - Objective Vital Signs: Vital Signs Temperature 98.5 F 02/01/18 09:13 Pulse Rate 102 H 02/01/18 09:13 Respiratory Rate 20 02/01/18 09:13 Blood Pressure 113/51 L 02/01/18 09:13 O2 Sat by Pulse Oximetry (%) 96 02/01/18 09:00 Labs: CBC, BMP 02/01/18 06:00 02/01/18 06:00 INR, PTT INR 1.23 (0.83-1.09) H 01/31/18 06:50 Problem List - Problems (1) Small bowel obstruction Code(s): K56.609 - UNSP INTESTNL OBST, UNSP TO PARTIAL VERSUS COMPLETE OBST (2) Anemia Code(s): D64.9 - ANEMIA, UNSPECIFIED Qualifiers: Qualified Code(s): D50.9 - Iron deficiency anemia, unspecified (3) Constipation Code(s): K59.00 - CONSTIPATION, UNSPECIFIED Assessment/Plan Surgery: Patient has no abdominal pain, no nausea, no vomiting, Abdomen is soft , not tender, no abdominal distention. Has had 2 bowel movement. Abdominal X-ray done last night shows no sign of intestinal obstruction. CT scan shows contrast rapidly going through the small intestine and the colon. There appears to be some difference in the small intestinal caliber in the center with no hold up. Will repeat abdominal X-ray and resume liquid diet. Disscussed with patient and her family, and Dr. Alegria.
--- NOTE | 2018-02-01 19:50 | PN ---
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 (short form) - Note 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: BM today / no N or V discussed with rn plastic surgery at bedside Vital Signs Period Temp Pulse Resp BP Sys/Kirk Pulse Ox Last 24 Hr 97.6 F-98.7 F 93-108 18-20 95-122/56-65 95-95 Intake & Output 01/29/18 01/30/18 01/31/18 02/01/18 23:59 23:59 23:59 23:59 Intake Total 2700 2600 2400 350 Output Total 400 200 0 Balance 2300 2400 2400 350 Weight 134 lb 6 oz 129 lb 9 oz 133 lb 12.8 oz 128 lb 4 oz neck suppple heart s1/s2 lung clear bilat abd - soft +BS / no tenderness illicited Ext no edema / no calf tenderness CBC, BMP 02/01/18 06:00 02/01/18 06:00 FUA 01/31 no evidence of obstruction FUA 02/01 ordered Active Medications Dextrose/Sodium Chloride (D5-1/2ns -) 1,000 mls @ 100 mls/hr IV ASDIR MORIAH Last Admin: 01/30/18 22:10 Dose: 100 mls/hr Ondansetron HCl (Zofran Injection) 4 mg IVPUSH Q6H PRN PRN Reason: NAUSEA AND/OR VOMITING # SBO appreciate Surgical and GI eval and follow up start on liquid diet # dementia stable Problem List - Problems (1) Nausea & vomiting Code(s): R11.2 - NAUSEA WITH VOMITING, UNSPECIFIED (2) Small bowel obstruction Code(s): K56.609 - UNSP INTESTNL OBST, UNSP TO PARTIAL VERSUS COMPLETE OBST (3) Anemia Code(s): D64.9 - ANEMIA, UNSPECIFIED Qualifiers: Anemia type: iron deficiency Iron deficiency anemia type: unspecified iron deficiency Qualified Code(s): D50.9 - Iron deficiency anemia, unspecified (4) Constipation Code(s): K59.00 - CONSTIPATION, UNSPECIFIED (5) Dementia Code(s): F03.90 - UNSPECIFIED DEMENTIA WITHOUT BEHAVIORAL DISTURBANCE (6) History of colon cancer Code(s): Z85.038 - PERSONAL HISTORY OF MALIGNANT NEOPLASM OF LARGE INTESTINE
[2018-02-02] MEDS ORDERED: PT OWN MED DRAWER 7, Y5N ONE (06:47)
[2018-02-02 07:57] LABS: BASO % 0.5 % (0-2.0); EOS % 0.7 % (0-4.5); HEMATOCRIT 35.4 % (32.4-45.2); HEMOGLOBIN 11.6 GM/dL (10.7-15.3); LYMPH % 7.2 % (8-40); MCH 28.8 pg (25.7-33.7); MCHC 32.7 g/dl (32.0-36.0); MEAN CELL VOLUME 88.3 fl (80-96); MEAN PLT VOLUME 10.1 fl (7.5-11.1); MONO % 8.4 % (3.8-10.2); NEUT % 83.2 % (42.8-82.8); PLATELET COUNT 157 K/MM3 (134-434); RBC 4.01 M/mm3 (3.60-5.2); RDW 13.8 % (11.6-15.6)
[2018-02-02 08:28] LABS: ANION GAP 10 MMOL/L (8-16); BLOOD UREA NITROGEN 12 mg/dL (7-18); CHLORIDE 99 mmol/L (98-107); CO2 30 mmol/L (21-32); CREATININE 0.3 mg/dL (0.55-1.3); GLUCOSE,RANDOM 109 mg/dL (74-106); MAGNESIUM 2.3 mg/dL (1.8-2.4); PHOSPHOROUS 2.2 mg/dL (2.5-4.9); POTASSIUM 3.7 mmol/L (3.5-5.1); SODIUM 138 mmol/L (136-145)
--- NOTE | 2018-02-02 10:01 | PN ---
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 (short form) - Note 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: Pt seen at bedside. She is confused but has been tolerating clear liquid diet without vomiting. Abdomeinal film from yesterday -> no obstruction. Abdomen soft, nontender, hypoactive BS. To advance to full liquid diet.
--- NOTE | 2018-02-02 10:56 | PN ---
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 (short form) - Note 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: patient seen at radiology case discussed with Dr Alegria patient tolerating PO No vomiting + BM Vital Signs Period Temp Pulse Resp BP Sys/Kirk Pulse Ox Last 24 Hr 97.6 F-99.1 F 110-113 18-20 107-128/50-69 96 Intake & Output 01/30/18 01/31/18 02/01/18 02/02/18 23:59 23:59 23:59 23:59 Intake Total 2600 2400 390 Output Total 200 0 Balance 2400 2400 390 Weight 129 lb 9 oz 133 lb 12.8 oz 128 lb 4 oz 131 lb neck suppple heart s1/s2 lung clear bilat abd - soft +BS / no tenderness illicited Ext no edema / no calf tenderness CBC, BMP 02/02/18 06:30 02/02/18 06:30 FUA 01/31 no evidence of obstruction FUA 02/01 no evidence of obstruction Active Medications Dextrose/Sodium Chloride (D5-1/2ns -) 1,000 mls @ 100 mls/hr IV ASDIR [facility] Last Admin: 01/30/18 22:10 Dose: 100 mls/hr Ondansetron HCl (Zofran Injection) 4 mg IVPUSH Q6H PRN PRN Reason: NAUSEA AND/OR VOMITING # SBO appreciate Surgical and GI eval and follow up start on liquid diet -- advance diet today # dementia stable Problem List - Problems (1) Nausea & vomiting Code(s): R11.2 - NAUSEA WITH VOMITING, UNSPECIFIED (2) Small bowel obstruction Code(s): K56.609 - UNSP INTESTNL OBST, UNSP TO PARTIAL VERSUS COMPLETE OBST (3) Anemia Code(s): D64.9 - ANEMIA, UNSPECIFIED Qualifiers: Anemia type: iron deficiency Iron deficiency anemia type: unspecified iron deficiency Qualified Code(s): D50.9 - Iron deficiency anemia, unspecified (4) Constipation Code(s): K59.00 - CONSTIPATION, UNSPECIFIED (5) Dementia Code(s): F03.90 - UNSPECIFIED DEMENTIA WITHOUT BEHAVIORAL DISTURBANCE (6) History of colon cancer Code(s): Z85.038 - PERSONAL HISTORY OF MALIGNANT NEOPLASM OF LARGE INTESTINE
--- NOTE | 2018-02-02 11:25 | PN ---
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, Physician - Current Medication List Current Medications: Active Medications Dextrose/Sodium Chloride (D5-1/2ns -) 1,000 mls @ 100 mls/hr IV ASDIR [facility]IA[facility] Last Admin: 01/30/18 22:10 Dose: 100 mls/hr Ondansetron HCl (Zofran Injection) 4 mg IVPUSH Q6H PRN PRN Reason: NAUSEA AND/OR VOMITING - Objective Vital Signs: Vital Signs Temperature 98.5 F 02/02/18 10:06 Pulse Rate 111 H 02/02/18 10:06 Respiratory Rate 18 02/02/18 10:06 Blood Pressure 118/66 02/02/18 10:06 O2 Sat by Pulse Oximetry (%) 96 02/01/18 21:00 Labs: CBC, BMP 02/02/18 06:30 02/02/18 06:30 INR, PTT INR 1.23 (0.83-1.09) H 01/31/18 06:50 Problem List - Problems (1) Small bowel obstruction Code(s): K56.609 - UNSP INTESTNL OBST, UNSP TO PARTIAL VERSUS COMPLETE OBST (2) Anemia Code(s): D64.9 - ANEMIA, UNSPECIFIED Qualifiers: Anemia type: iron deficiency Iron deficiency anemia type: unspecified iron deficiency Qualified Code(s): D50.9 - Iron deficiency anemia, unspecified (3) Constipation Code(s): K59.00 - CONSTIPATION, UNSPECIFIED Assessment/Plan Patient has had bowel movements, tolerated liquids. Abdomen is soft, Abdominal X-ray: Normal. diet progressed to full liquids, Intestinal obstruction has resolved.
--- NOTE | 2018-02-03 10:12 | PN ---
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 (short form) - Note 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: Ortho Pt seen and examined s/p right IM gamma nail 1 + month ago Selected Entries 02/03/18 06:00 Temperature 98.0 F Pulse Rate 112 H Respiratory 18 Rate Blood Pressure 97 Mean Laboratory Tests 02/02/18 06:30 WBC 7.0 Hgb 11.6 Hct 35.4 Plt Count 157 incision is well healed, minimal ttp, good rom, nvi xrays show healing of the fracture site with good positioning of gamma nail a/p PT wbat dvt ppx pain control ok to d/c from ortho pov
[2018-02-03] MEDS: ACETAMINOPHEN 325 MG TABLET (FP) PO PRN (14:23)
--- NOTE | 2018-02-03 16:14 | PN ---
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, Physician - Current Medication List Current Medications: Active Medications Acetaminophen (Tylenol -) 650 mg PO Q4H PRN PRN Reason: PAIN 1-5 Last Admin: 02/03/18 14:23 Dose: 650 mg Dextrose/Sodium Chloride (D5-1/2ns -) 1,000 mls @ 100 mls/hr IV ASDIR [facility] Last Admin: 01/30/18 22:10 Dose: 100 mls/hr Ondansetron HCl (Zofran Injection) 4 mg IVPUSH Q6H PRN PRN Reason: NAUSEA AND/OR VOMITING - Objective Vital Signs: Vital Signs Temperature 97.8 F 02/03/18 15:06 Pulse Rate 109 H 02/03/18 15:06 Respiratory Rate 18 02/03/18 15:06 Blood Pressure 110/59 L 02/03/18 15:06 O2 Sat by Pulse Oximetry (%) 94 L 02/02/18 21:00 Labs: CBC, BMP 02/02/18 06:30 02/02/18 06:30 INR, PTT INR 1.23 (0.83-1.09) H 01/31/18 06:50 Problem List - Problems (1) Small bowel obstruction Code(s): K56.609 - UNSP INTESTNL OBST, UNSP TO PARTIAL VERSUS COMPLETE OBST (2) Anemia Code(s): D64.9 - ANEMIA, UNSPECIFIED Qualifiers: Anemia type: iron deficiency Iron deficiency anemia type: unspecified iron deficiency Qualified Code(s): D50.9 - Iron deficiency anemia, unspecified (3) Constipation Code(s): K59.00 - CONSTIPATION, UNSPECIFIED Assessment/Plan Surgery: Patient has no abdominal pain. She has had a bowel movement. Abdomen is soft , not tender , not distended. Has tolerated liquid diet. Abdominal X-ray : has not been reportd by the radiologist , but shows some air in the small intestine, air and stool seen througout the colon, ? residual air in small intestine, vs partial obstruction / kink, but asymptomatic. Will progress diet to soft diet.
--- NOTE | 2018-02-03 20:42 | PN ---
GI 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 Subjective: GI NOte: No vomiting. Not eating very well but is tolerating whatever she eats. TALHA has some small bowel distension but no high grade obstruction. - Objective Vital Signs: Vital Signs Temperature 97.8 F 02/03/18 15:06 Pulse Rate 109 H 02/03/18 15:06 Respiratory Rate 18 02/03/18 15:06 Blood Pressure 110/59 L 02/03/18 15:06 O2 Sat by Pulse Oximetry (%) 94 L 02/03/18 09:00 Constitutional: Calm ...Auscultate: Yes: Normoactive Bowel Sounds ...Palpate: Yes: Soft, Other (nontender) Labs: CBC, BMP 02/02/18 06:30 02/02/18 06:30 INR, PTT INR 1.23 (0.83-1.09) H 01/31/18 06:50 Assessment/Plan Resolved SBO Will order FUA prn only now No GI objections to discharge Problem List - Problems (1) Small bowel obstruction Code(s): K56.609 - UNSP INTESTNL OBST, UNSP TO PARTIAL VERSUS COMPLETE OBST (2) Anemia Code(s): D64.9 - ANEMIA, UNSPECIFIED Qualifiers: Anemia type: iron deficiency Iron deficiency anemia type: unspecified iron deficiency Qualified Code(s): D50.9 - Iron deficiency anemia, unspecified (3) Dementia Code(s): F03.90 - UNSPECIFIED DEMENTIA WITHOUT BEHAVIORAL DISTURBANCE (4) History of colon cancer Code(s): Z85.038 - PERSONAL HISTORY OF MALIGNANT NEOPLASM OF LARGE INTESTINE
--- NOTE | 2018-02-04 01:05 | PN ---
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 (short form) - Note 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: patient seen at radiology confused / patient tolerating PO No vomiting + BM Vital Signs Period Temp Pulse Resp BP Sys/Kirk Pulse Ox Last 24 Hr 97.6 F-99.1 F 110-113 18-20 107-128/50-69 96 Intake & Output 02/01/18 02/02/18 02/03/18 02/04/18 23:59 23:59 23:59 23:59 Intake Total 390 150 430 Balance 390 150 430 Weight 128 lb 4 oz 131 lb 119 lb 8 oz neck suppple heart s1/s2 lung clear bilat abd - soft +BS / no tenderness illicited Ext no edema / no calf tenderness CBC, BMP 02/02/18 06:30 02/02/18 06:30 FUA 01/31 no evidence of obstruction FUA 02/01 no evidence of obstruction FUA 02/02 some distension no obstruction Active Medications Acetaminophen (Tylenol -) 650 mg PO Q4H PRN PRN Reason: PAIN 1-5 Last Admin: 02/03/18 14:23 Dose: 650 mg Dextrose/Sodium Chloride (D5-1/2ns -) 1,000 mls @ 100 mls/hr IV ASDIR [facility] Last Admin: 01/30/18 22:10 Dose: 100 mls/hr Ondansetron HCl (Zofran Injection) 4 mg IVPUSH Q6H PRN PRN Reason: NAUSEA AND/OR VOMITING # SBO resolved on full liquid diet -- advance diet today # dementia stable Problem List - Problems (1) Nausea & vomiting Code(s): R11.2 - NAUSEA WITH VOMITING, UNSPECIFIED (2) Small bowel obstruction Code(s): K56.609 - UNSP INTESTNL OBST, UNSP TO PARTIAL VERSUS COMPLETE OBST (3) Anemia Code(s): D64.9 - ANEMIA, UNSPECIFIED Qualifiers: Anemia type: iron deficiency Iron deficiency anemia type: unspecified iron deficiency Qualified Code(s): D50.9 - Iron deficiency anemia, unspecified (4) Constipation Code(s): K59.00 - CONSTIPATION, UNSPECIFIED (5) Dementia Code(s): F03.90 - UNSPECIFIED DEMENTIA WITHOUT BEHAVIORAL DISTURBANCE (6) History of colon cancer Code(s): Z85.038 - PERSONAL HISTORY OF MALIGNANT NEOPLASM OF LARGE INTESTINE
--- NOTE | 2018-02-04 10:08 | PN ---
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 (short form) - Note 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: confused - poor intake ( about 25% intake ) seems to be tolerating PO well aide at bedside no BM today / no BM yesterday no nausea / no abdominal pain or discomfort Vital Signs Period Temp Pulse Resp BP Sys/Kirk Pulse Ox Last 24 Hr 97.8 F-98.5 F 100-109 18-18 110-123/59-72 Intake & Output 02/01/18 02/02/18 02/03/18 02/04/18 23:59 23:59 23:59 23:59 Intake Total 390 150 430 Balance 390 150 430 Weight 128 lb 4 oz 131 lb 119 lb 8 oz sitting up in bed neck suppple heart s1/s2 lung clear bilat abd - soft +BS / no tenderness illicited /not distended) Ext no edema / no calf tenderness CBC, BMP 02/02/18 06:30 02/02/18 06:30 FUA 01/31 no evidence of obstruction FUA 02/01 no evidence of obstruction FUA 02/02 some distension no obstruction Active Medications Acetaminophen (Tylenol -) 650 mg PO Q4H PRN PRN Reason: PAIN 1-5 Last Admin: 02/03/18 14:23 Dose: 650 mg Dextrose/Sodium Chloride (D5-1/2ns -) 1,000 mls @ 100 mls/hr IV ASDIR MORIA[facility] Last Admin: 01/30/18 22:10 Dose: 100 mls/hr Ondansetron HCl (Zofran Injection) 4 mg IVPUSH Q6H PRN PRN Reason: NAUSEA AND/OR VOMITING # SBO resolved regular diet but poor intake FUA yesterday with some distension discussed with aide - ( patient with dementia - no short term memory ) ecourage PO intake and activity document BM will observe 24 hours patient to return to [facility] prior to return [facility] [place] # dementia stable Problem List - Problems (1) Nausea & vomiting Code(s): R11.2 - NAUSEA WITH VOMITING, UNSPECIFIED (2) Small bowel obstruction Code(s): K56.609 - UNSP INTESTNL OBST, UNSP TO PARTIAL VERSUS COMPLETE OBST (3) Anemia Code(s): D64.9 - ANEMIA, UNSPECIFIED Qualifiers: Anemia type: iron deficiency Iron deficiency anemia type: unspecified iron deficiency Qualified Code(s): D50.9 - Iron deficiency anemia, unspecified (4) Constipation Code(s): K59.00 - CONSTIPATION, UNSPECIFIED (5) Dementia Code(s): F03.90 - UNSPECIFIED DEMENTIA WITHOUT BEHAVIORAL DISTURBANCE (6) History of colon cancer Code(s): Z85.038 - PERSONAL HISTORY OF MALIGNANT NEOPLASM OF LARGE INTESTINE
--- NOTE | 2018-02-04 13:58 | PN ---
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, Physician - Current Medication List Current Medications: Active Medications Acetaminophen (Tylenol -) 650 mg PO Q4H PRN PRN Reason: PAIN 1-5 Last Admin: 02/03/18 14:23 Dose: 650 mg Dextrose/Sodium Chloride (D5-1/2ns -) 1,000 mls @ 100 mls/hr IV ASDIR MORIAH Last Admin: 01/30/18 22:10 Dose: 100 mls/hr Ondansetron HCl (Zofran Injection) 4 mg IVPUSH Q6H PRN PRN Reason: NAUSEA AND/OR VOMITING - Objective Vital Signs: Vital Signs Temperature 98.5 F 02/04/18 05:55 Pulse Rate 105 H 02/04/18 05:55 Respiratory Rate 18 02/04/18 05:55 Blood Pressure 121/67 02/04/18 05:55 O2 Sat by Pulse Oximetry (%) 94 L 02/03/18 09:00 Labs: CBC, BMP 02/02/18 06:30 02/02/18 06:30 INR, PTT INR 1.23 (0.83-1.09) H 01/31/18 06:50 Problem List - Problems (1) Small bowel obstruction Code(s): K56.609 - UNSP INTESTNL OBST, UNSP TO PARTIAL VERSUS COMPLETE OBST (2) Anemia Code(s): D64.9 - ANEMIA, UNSPECIFIED Qualifiers: Anemia type: iron deficiency Iron deficiency anemia type: unspecified iron deficiency Qualified Code(s): D50.9 - Iron deficiency anemia, unspecified (3) Constipation Code(s): K59.00 - CONSTIPATION, UNSPECIFIED Assessment/Plan Surgery: Patient is comfortable, no vomiting, no abdominal apin. Abdomen is soft , not tender. Abdomianl X-ray : no evidence of intestinal obstruction . Will sign off.
--- NOTE | 2018-02-04 20:05 | PN ---
GI 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 Subjective: GI NOte: Obstruction resolved. No vomiting or pain but refusing to eat. Encouraged her children to bring in her favorite foods - Objective Vital Signs: Vital Signs Temperature 97.3 F L 02/04/18 14:00 Pulse Rate 110 H 02/04/18 14:00 Respiratory Rate 20 02/04/18 14:00 Blood Pressure 114/76 02/04/18 14:00 O2 Sat by Pulse Oximetry (%) 95 02/04/18 09:00 Constitutional: No Distress ...Auscultate: Yes: Normoactive Bowel Sounds ...Palpate: Yes: Soft, Other (nontender) Labs: CBC, BMP 02/02/18 06:30 02/02/18 06:30 INR, PTT INR 1.23 (0.83-1.09) H 01/31/18 06:50 Problem List - Problems (1) Small bowel obstruction Assessment/Plan: Resolved SBO. The situation was discussed with the sonColten and his sister. Code(s): K56.609 - UNSP INTESTNL OBST, UNSP TO PARTIAL VERSUS COMPLETE OBST (2) Anemia Code(s): D64.9 - ANEMIA, UNSPECIFIED Qualifiers: Anemia type: iron deficiency Iron deficiency anemia type: unspecified iron deficiency Qualified Code(s): D50.9 - Iron deficiency anemia, unspecified (3) Dementia Code(s): F03.90 - UNSPECIFIED DEMENTIA WITHOUT BEHAVIORAL DISTURBANCE (4) History of colon cancer Code(s): Z85.038 - PERSONAL HISTORY OF MALIGNANT NEOPLASM OF LARGE INTESTINE
[2018-02-05 07:29] LABS: BASO % 0.8 % (0-2.0); EOS % 2.3 % (0-4.5); HEMATOCRIT 36.9 % (32.4-45.2); LYMPH % 13.7 % (8-40); MCH 28.8 pg (25.7-33.7); MCHC 32.5 g/dl (32.0-36.0); MEAN CELL VOLUME 88.8 fl (80-96); MEAN PLT VOLUME 8.9 fl (7.5-11.1); MONO % 8.4 % (3.8-10.2); NEUT % 74.8 % (42.8-82.8); PLATELET COUNT 245 K/MM3 (134-434); RBC 4.15 M/mm3 (3.60-5.2); RDW 13.9 % (11.6-15.6); WHITE BLOOD COUNT 5.6 K/mm3 (4.0-10.0)
[2018-02-05 07:41] LABS: ANION GAP 5 MMOL/L (8-16); BLOOD UREA NITROGEN 13 mg/dL (7-18); CALCIUM 9.8 mg/dL (8.5-10.1); CHLORIDE 99 mmol/L (98-107); CO2 32 mmol/L (21-32); CREATININE 0.3 mg/dL (0.55-1.3); GLUCOSE,RANDOM 110 mg/dL (74-106); POTASSIUM 3.8 mmol/L (3.5-5.1); SODIUM 136 mmol/L (136-145)
[2018-02-05] MEDS: ACETAMINOPHEN 325 MG TABLET (FP) PO PRN (11:44)
[2018-02-05] MEDS: POLYETHYLENE GLYCOL 3350 119 GM BTL PO SCH ×2 (15:32→21:43)
[2018-02-05] MEDS: NYSTATIN 100,000 UNIT/GM TOPICAL CREAM 15 GM TUBE TP SCH (21:43)
[2018-02-05 22:15] VITALS: BMI 23.8
[2018-02-06] MEDS: POLYETHYLENE GLYCOL 3350 119 GM BTL PO SCH ×2 (10:39→23:06)
[2018-02-06] MEDS: NYSTATIN 100,000 UNIT/GM TOPICAL CREAM 15 GM TUBE TP SCH ×2 (10:39→23:05)
--- NOTE | 2018-02-06 10:46 | PN ---
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 (short form) - Note 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: 87 y/o female found lying in bed. No BM. Pt denies pain and discomfort. Vital Signs Period Temp Pulse Resp BP Sys/Kirk Pulse Ox Last 24 Hr 97.3 F-98.4 F 83-111 20-21 104-124/56-62 95 CBC, BMP 02/05/18 06:20 02/05/18 06:20 HEENT-Normocephalic Neck-supple Lungs-CTAB Heart- S1/S2 Abd-Soft, nt Ext- No LE edema Active Medications Acetaminophen (Tylenol -) 650 mg PO Q4H PRN PRN Reason: PAIN 1-5 Last Admin: 02/05/18 11:44 Dose: 650 mg Dextrose/Sodium Chloride (D5-1/2ns -) 1,000 mls @ 100 mls/hr IV ASDIR [facility] Last Admin: 01/30/18 22:10 Dose: 100 mls/hr Nystatin (Mycostatin Cream -) 1 applic TP BID [facility] Last Admin: 02/06/18 10:39 Dose: 1 applic Ondansetron HCl (Zofran Injection) 4 mg IVPUSH Q6H PRN PRN Reason: NAUSEA AND/OR VOMITING Polyethylene Glycol (Miralax (For Daily Use) -) 17 gm PO BID [facility] Last Admin: 02/06/18 10:39 Dose: 17 gm # SBO poor PO intake Still No BM with Miralax FUA yesterday showed some distension Repeat FUA stat # dementia Baseline Problem List - Problems (1) Nausea & vomiting Code(s): R11.2 - NAUSEA WITH VOMITING, UNSPECIFIED (2) Small bowel obstruction Code(s): K56.609 - UNSP INTESTNL OBST, UNSP TO PARTIAL VERSUS COMPLETE OBST (3) Anemia Code(s): D64.9 - ANEMIA, UNSPECIFIED Qualifiers: Anemia type: iron deficiency Iron deficiency anemia type: unspecified iron deficiency Qualified Code(s): D50.9 - Iron deficiency anemia, unspecified (4) Constipation Code(s): K59.00 - CONSTIPATION, UNSPECIFIED (5) Dementia Code(s): F03.90 - UNSPECIFIED DEMENTIA WITHOUT BEHAVIORAL DISTURBANCE (6) History of colon cancer Code(s): Z85.038 - PERSONAL HISTORY OF MALIGNANT NEOPLASM OF LARGE INTESTINE
[2018-02-06] MEDS: ACETAMINOPHEN 325 MG TABLET (FP) PO PRN ×2 (11:48→23:19)
[2018-02-06] MEDS: DEXTROSE 5%-0.45% SALINE 1,000 ML IV SCH (23:08)
[2018-02-07 08:09] LABS: EOS % 4.6 % (0-4.5); HEMATOCRIT 36.6 % (32.4-45.2); HEMOGLOBIN 11.8 GM/dL (10.7-15.3); LYMPH % 23.5 % (8-40); MCH 28.8 pg (25.7-33.7); MCHC 32.4 g/dl (32.0-36.0); MEAN PLT VOLUME 8.7 fl (7.5-11.1); MONO % 7.6 % (3.8-10.2); NEUT % 63.3 % (42.8-82.8); PLATELET COUNT 243 K/MM3 (134-434); RBC 4.11 M/mm3 (3.60-5.2); RDW 14.2 % (11.6-15.6); WHITE BLOOD COUNT 3.8 K/mm3 (4.0-10.0)
[2018-02-07 08:20] LABS: ALBUMIN 2.3 g/dl (3.4-5.0); ALK PHOS 82 U/L (45-117); ANION GAP 8 MMOL/L (8-16); BILIRUBIN,TOTAL 0.4 mg/dL (0.2-1); BLOOD UREA NITROGEN 10 mg/dL (7-18); CALCIUM 9.3 mg/dL (8.5-10.1); CHLORIDE 103 mmol/L (98-107); CO2 29 mmol/L (21-32); CREATININE 0.3 mg/dL (0.55-1.3); GLUCOSE,RANDOM 90 mg/dL (74-106); POTASSIUM 3.8 mmol/L (3.5-5.1); SGOT/AST 16 U/L (15-37); SGPT/ALT 17 U/L (13-61); SODIUM 140 mmol/L (136-145); TOT PROT 5.4 g/dl (6.4-8.2)
[2018-02-07 09:31] VITALS: PULSE 98
--- NOTE | 2018-02-07 09:42 | DS ---
Physical Examination Vital Signs: Vital Signs Temperature 97.5 F L 02/07/18 09:31 Pulse Rate 98 H 02/07/18 09:31 Respiratory Rate 20 02/07/18 09:31 Blood Pressure 119/68 02/07/18 09:31 O2 Sat by Pulse Oximetry (%) 95 02/06/18 21:00 Constitutional: Yes: Well Nourished, Calm Eyes: Yes: Conjunctiva Clear HENT: Yes: Atraumatic, Normocephalic Neck: Yes: Supple, Trachea Midline Cardiovascular: Yes: Regular Rate and Rhythm Respiratory: Yes: Regular, CTA Bilaterally Gastrointestinal: Yes: Normal Bowel Sounds, Soft ...Rectal Exam: Yes: Deferred Renal/: Yes: WNL Breast(s): Yes: WNL Musculoskeletal: Yes: WNL Extremities: Yes: WNL Edema: No Peripheral Pulses WNL: Yes Integumentary: Yes: WNL Neurological: Yes: Alert, Oriented ...Motor Strength: WNL Psychiatric: Yes: Alert Labs: CBC, BMP 02/07/18 06:00 02/07/18 06:00 Discharge Summary Reason For Visit: UTI Current Active Problems Nausea & vomiting (Acute) Small bowel obstruction (Acute) Hospital Course: Transferred to [facility] from [facility] per family request. Admitted for nausea, vomiting and abdominal pain. Treated for SBO. Hx of Dementia, HTN and s/p resection of colon cancer. Large BM this am. Plan to transfer to facility for Short-term rehab. Condition: Fair - Instructions Disposition: CARE HOME FACILITY - Home Medications Comprehensive Discharge Medication List: Ambulatory Orders Acetaminophen [Tylenol .Extra-Strength -] 500 mg PO Q4H PRN 01/26/17 Aspirin [ASA -] 81 mg PO DAILY 01/26/17 Memantine HCl [Namenda -] 5 mg PO DAILY 01/26/17 Metoprolol Tartrate [Lopressor -] 25 mg PO BID 01/26/17 Mirtazapine [Remeron -] 15 mg PO HS 01/26/17 Nystatin/Triamcinolone Top Cr [Mycolog II -] 1 applic TP Q8H PRN applic Pantoprazole Sodium [Protonix -] 40 mg PO BID 30 Days #30 tablet.ec 01/06/18 Polyethylene Glycol 3350 [Miralax 119 gm Btl -] 17 gm PO DAILY bottle 01/06/18
--- NOTE | 2018-02-07 09:42 | PN ---
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, Physician - Current Medication List Current Medications: Active Medications Acetaminophen (Tylenol -) 650 mg PO Q4H PRN PRN Reason: PAIN 1-5 Last Admin: 02/06/18 23:19 Dose: 650 mg Dextrose/Sodium Chloride (D5-1/2ns -) 1,000 mls @ 100 mls/hr IV ASDIR [facility] Last Admin: 02/06/18 23:08 Dose: Not Given Nystatin (Mycostatin Cream -) 1 applic TP BID [facility] Last Admin: 02/06/18 23:05 Dose: 1 applic Ondansetron HCl (Zofran Injection) 4 mg IVPUSH Q6H PRN PRN Reason: NAUSEA AND/OR VOMITING Polyethylene Glycol (Miralax (For Daily Use) -) 17 gm PO BID [facility] Last Admin: 02/06/18 23:06 Dose: 17 gm - Objective Vital Signs: Vital Signs Temperature 97.5 F L 02/07/18 09:31 Pulse Rate 98 H 02/07/18 09:31 Respiratory Rate 20 02/07/18 09:31 Blood Pressure 119/68 02/07/18 09:31 O2 Sat by Pulse Oximetry (%) 95 02/06/18 21:00 Labs: CBC, BMP 02/07/18 06:00 02/07/18 06:00 INR, PTT INR 1.23 (0.83-1.09) H 01/31/18 06:50 Problem List - Problems (1) Small bowel obstruction Code(s): K56.609 - UNSP INTESTNL OBST, UNSP TO PARTIAL VERSUS COMPLETE OBST (2) Anemia Code(s): D64.9 - ANEMIA, UNSPECIFIED Qualifiers: Anemia type: iron deficiency Iron deficiency anemia type: unspecified iron deficiency Qualified Code(s): D50.9 - Iron deficiency anemia, unspecified (3) Constipation Code(s): K59.00 - CONSTIPATION, UNSPECIFIED Assessment/Plan Surgery: Patient is tolerating oral feeding as per her attendant, She has no abdominal pain. She has had a bowel movement. Abdomen is soft , not distended, not tender. No clinical symptoms, signs of intestinal obstruction. Disscusssed with Dr. Meehan. will be covering me, for the next 2 weeks.
[2018-02-07] MEDS: POLYETHYLENE GLYCOL 3350 119 GM BTL PO SCH (10:07)
[2018-02-07] MEDS: NYSTATIN 100,000 UNIT/GM TOPICAL CREAM 15 GM TUBE TP SCH (10:07)
[2018-02-07] MEDS: ACETAMINOPHEN 325 MG TABLET (FP) PO PRN (11:05)
[2018-02-07 11:29] VITALS: BP 115/70; TEMP 97.2
== END 2018-02-07 12:10 | DRG 390 ==
LOC: J6S 13:19
PROVIDERS: ADMIT Family Medicine; ATTEND Family Medicine
DX: K56.600 Partial intestinal obstruction, unspecified as to cause (principal); Z90.49 Acquired absence of other specified parts of digestive tract; Z85.038 Personal history of other malignant neoplasm of large intestine; I10 Essential (primary) hypertension; E78.5 Hyperlipidemia, unspecified; Z96.651 Presence of right artificial knee joint; F03.90 Unspecified dementia, unspecified severity, without behavioral disturbance, psychotic disturbance, mood disturbance, and anxiety; D50.9 Iron deficiency anemia, unspecified; K59.00 Constipation, unspecified; S72.141D Displaced intertrochanteric fracture of right femur, subsequent encounter for closed fracture with routine healing; W18.39XD Other fall on same level, subsequent encounter
CPT/HCPCS: 36415; 73523-TC-FY; 74018-TC-FY; 74019-TC-FY; 74021-TC-FY; 74176-TC; 80048; 80053; 82150; 83690; 83735; 84100; 85025; 85027; 85610; 86140; 97116-GP; 97162-GP; J0131

== ENCOUNTER 2019-08-31 13:31 | Inpatient (IN) | payer OTHER, MEDICARE ==
--- NOTE | 2019-08-31 13:37 | PDOC ---
Rapid Medical Evaluation Chief Complaint: Wound Time Seen by Provider: 08/31/19 13:35 Medical Evaluation: Allergies Allergy/AdvReac Type Severity Reaction Status Date / Time codeine Allergy Verified 08/31/19 13:34 Penicillins Allergy Verified 08/31/19 13:34 08/31/19 13:36 CC: here for admission, infected sacral wound, sent by dr vazquez, pt denies pain Exam: vss, appears comfortable in wheelchair, Plan: labs, iv
[2019-08-31 13:38] VITALS: BMI 18.7
--- NOTE | 2019-08-31 14:49 | PDOC ---
History of Present Illness - General Chief Complaint: Wound Stated Complaint: WOUND Time Seen by Provider: 08/31/19 13:35 - History of Present Illness Initial Comments: 08/31/19 14:56 87 y/o female with PMH of HTN, Colon CA s/p resection 2013 , dementia and SBO sent from wound care clinic for 5 non-healing decubitus ulcers over her hips, back and buttocks bilaterally. Sacral ulcers present since last February, non- healing. Patient denies pain. Dr. Dawn recommended admission with frequent turning, betadine dressing and foam to both hips and sacrum. Past History - Medical History Allergies/Adverse Reactions: Allergies Allergy/AdvReac Type Severity Reaction Status Date / Time codeine Allergy Verified 08/31/19 13:34 Penicillins Allergy Verified 08/31/19 13:34 Home Medications: Ambulatory Orders Acetaminophen [Tylenol .Extra-Strength -] 500 mg PO Q4H PRN 01/26/17 Collagenase Clostridium Hist. [Santyl] 1 applic TP DAILY #90 oint...g. 04/27/19 Anemia: No Asthma: No Cancer: No Cardiac Disorders: No CVA: No COPD: No CHF: No Dementia: Yes Diabetes: No GI Disorders: No Disorders: No HTN: Yes Hypercholesterolemia: Yes Liver Disease: No Seizures: No Thyroid Disease: No - Surgical History Abdominal Surgery: No Appendectomy: No Cardiac Surgery: No Cholecystectomy: No Lung Surgery: No Neurologic Surgery: No Orthopedic Surgery: Yes (Rt Knee Replacement) - Immunization History Immunization Up to Date: No - Psycho-Social/Smoking History Smoking History: Never smoked Have you smoked in the past 12 months: No - Substance Abuse Hx (Audit-C & DAST Scrn) How often the patient has a drink containing alcohol: Never Score: In Men: 4 or > Positive; In Women: 3 or > Positive: 0 Screen Result (Pos requires Nsg. Audit-10AR): Negative In the last yr the pt used illegal drug/Rx for NonMed reason: No Score: Yes response is considered Positive: 0 Screen Result (Positive result requires Nsg. DAST-10): Negative Review of Systems - Review of Systems Able to Perform ROS?: No (Dementia) *Physical Exam - Vital Signs Last Vital Signs Temp Pulse Resp BP Pulse Ox 99.0 F 88 20 118/60 100 08/31/19 13:35 08/31/19 13:35 08/31/19 13:35 08/31/19 13:35 08/31/19 13:35 - Physical Exam General Appearance: Yes: Thin HEENT: positive: EOMI, MADDIE, Normal ENT Inspection Respiratory/Chest: positive: Lungs Clear, Normal Breath Sounds. negative: Chest Tender, Respiratory Distress Cardiovascular: positive: Regular Rhythm, Regular Rate, S1, S2 Gastrointestinal/Abdominal: positive: Normal Bowel Sounds, Flat, Soft. negative: Tender Musculoskeletal: positive: Other (Sacral dressing freshly in place. Patient uncomfortable with manipulation) Integumentary: positive: Pale Neurologic: positive: Alert, Normal Mood/Affect, Normal Response Medical Decision Making - Medical Decision Making 08/31/19 15:28 Will obtain basic labs, consult ID and admit to primary care physician Dr. Connell. 08/31/19 16:02 Dr. Rivera consulted. Discharge - Discharge Information Problems reviewed: Yes Clinical Impression/Diagnosis: Decubitus ulcers Condition: Stable - Admission Yes - Follow up/Referral - Patient Discharge Instructions - Post Discharge Activity
--- NOTE | 2019-08-31 16:00 | HP ---
Admitting History and Physical - Admission Chief Complaint: Acute infected decubitus ulcers of hips, buttocks, and sacrum History of Present Illness: This 88 yr old w/f with PMH of HTN, colon cancer, s/p resection of colon, dementia admitted via ER with an acute infected decubitus ulcers of hips, low back, and buttocks. 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 mitral regurgitation) Gastrointestinal: Yes: Cancer (partial colectomy 2013 [facility]. No adjuvant therapy ) Hepatobiliary: No: Cirrhosis, Cholelithiasis, Cholecystitis, Choledocholithia sis, Hepatitis A, Hepatitis B, Hepatitis C, Other Renal/: No: Renal Failure, Renal Inusuff, BPH, Cancer, Hematuria, Hemodialysis, Neurogenic Bladder, Renal Calculi, UTI, Other Reproductive: No: Ectopic , Endometriosis, Fibroids, PID, Polycystic Ovary Syndrome, Postmenopausal, Other Heme/Onc: Yes: Cancer (colon cancer resected 2013 at [facility], Thymoma surgery and RT) Infectious Disease: No: AIDS, C-Diff, Herpes Zoster, HIV, MRSA, STD's, Tuberculosis, VREF, Other Psych: No: Addictions, Anxiety, Bipolar, Depression, Panic, Psychosis, Schizophrenia, Other Musculoskeletal: Yes: Osteoarthritis Rheumatology: No: Fibromyalgia, Gout, Lupus, Rheumatoid Arthritis, Sarcoidosis, Vasculitis, Other ENT: No: Allergic Rhinitis, Sinusitis, Other Endocrine: No: [place]'s Disease, Ebony's Disease, Diabetes Insipidus, Diabetes Mellitus, Hyperparathyroidism, Hyperthyroidism, Hypothyroidism, Osteopenia, SIADH, Other Dermatology: No: Basal Cell, Cellulitis, Eczema, Melanoma, Psoriasis, Squamous Cell, Other - Past Surgical History Past Surgical History: Yes: Cholecystectomy, Colectomy, Colonoscopy, Joint Replacement (right TKR), Upper Endoscopy - Smoking History Smoking history: Never smoked Have you smoked in the past 12 months: No - Alcohol/Substance Use Hx Alcohol Use: No History of Substance Use: reports: None - Social History Usual Living Arrangement: Yes: Assisted Living ADL: Support Services History of Recent Travel: No Home Medications - Allergies Allergies/Adverse Reactions: Allergies Allergy/AdvReac Type Severity Reaction Status Date / Time codeine Allergy Verified 08/31/19 13:34 Penicillins Allergy Verified 08/31/19 13:34 - Home Medications Home Medications: Ambulatory Orders Acetaminophen [Tylenol .Extra-Strength -] 500 mg PO Q4H PRN 01/26/17 Collagenase Clostridium Hist. [Santyl] 1 applic TP DAILY #90 oint...g. 04/27/19 Review of Systems - Review of Systems Constitutional: reports: Unintentional Wgt. Loss, Weakness Eyes: reports: No Symptoms HENT: reports: No Symptoms Neck: reports: No Symptoms Cardiovascular: reports: No Symptoms Respiratory: reports: No Symptoms Gastrointestinal: reports: No Symptoms Genitourinary: reports: No Symptoms Breasts: reports: No Symptoms Reported Musculoskeletal: reports: Back Pain, Muscle Weakness Integumentary: reports: Wound (hips, sacrum, buttocks) Neurological: reports: Confusion, Unsteady Gait, Weakness Endocrine: reports: No Symptoms, Unexplained Weight Loss Hematology/Lymphatic: reports: No Symptoms Psychiatric: reports: No Symptoms Physical Examination Vital Signs: Vital Signs Temperature 99.0 F 08/31/19 13:35 Pulse Rate 88 08/31/19 13:35 Respiratory Rate 08/31/19 13:35 Blood Pressure 118/60 08/31/19 13:35 O2 Sat by Pulse Oximetry (%) 100 08/31/19 13:35 Constitutional: Yes: Calm, Mild Distress Eyes: Yes: Conjunctiva Clear, EOM Intact HENT: Yes: Atraumatic, Normocephalic Neck: Yes: Supple, Trachea Midline Cardiovascular: Yes: Regular Rate and Rhythm Respiratory: Yes: Regular, CTA Bilaterally Gastrointestinal: Yes: Normal Bowel Sounds, Soft ...Rectal Exam: Yes: Deferred Renal/: Yes: WNL Breast(s): Yes: WNL Musculoskeletal: Yes: Muscle Weakness Extremities: Yes: Cool Edema: No Peripheral Pulses WNL: Yes Integumentary: Yes: Pressure Ulcer (hips, low back, buttocks) Neurological: Yes: Alert, Confusion, Unsteady Gait, Weakness ...Motor Strength: LUE (generalized weakness of all extremities) Psychiatric: Yes: Alert Problem List - Problems (1) Decubitus ulcers Code(s): L89.90 - PRESSURE ULCER OF UNSPECIFIED SITE, UNSPECIFIED STAGE (2) Anemia Code(s): D64.9 - ANEMIA, UNSPECIFIED Qualifiers: Anemia type: iron deficiency Iron deficiency anemia type: unspecified iron deficiency Qualified Code(s): D50.9 - Iron deficiency anemia, unspecified (3) Constipation Code(s): K59.00 - CONSTIPATION, UNSPECIFIED (4) Dementia Code(s): F03.90 - UNSPECIFIED DEMENTIA WITHOUT BEHAVIORAL DISTURBANCE (5) Fracture of pubic ramus Code(s): S32.599A - OTH FRACTURE OF UNSP PUBIS, INIT ENCNTR FOR CLOSED FRACTURE (6) History of colon cancer Code(s): Z85.038 - PERSONAL HISTORY OF MALIGNANT NEOPLASM OF LARGE INTESTINE (7) Inability to ambulate due to hip Code(s): R26.2 - DIFFICULTY IN WALKING, NOT ELSEWHERE CLASSIFIED (8) Intertrochanteric fracture of right hip Code(s): S72.141A - DISPLACED INTERTROCHANTERIC FRACTURE OF RIGHT FEMUR, INIT (9) Small bowel obstruction Code(s): K56.609 - UNSP INTESTNL OBST, UNSP TO PARTIAL VERSUS COMPLETE OBST (10) Syncope and collapse Code(s): R55 - SYNCOPE AND COLLAPSE Assessment/Plan Assessment/plan: acute multiple infected decubiti of the hips, buttocks, and sacrum, HTN, dementia, colon cancer, s/p colon resection; IV Vancomycin, IV fluids, consult to ID and Vascular Surgeon, Tylenol prn for pain, DVT prophylaxis, DEDE stockings.
--- NOTE | 2019-08-31 16:09 | PDOC ---
Documentation entered by Eloy Cornelius SCRIBE, acting as scribe for Gavi Arcos MD. Gavi Arcos MD: This documentation has been prepared by the Adryan ball Xhesika, SCRIBE, under my direction and personally reviewed by me in its entirety. I confirm that the documentation accurately reflects all work, treatment, procedures, and medical decision making performed by me. Attending Attestation - Resident Resident Name: TaylorDoc - ED Attending Attestation I have performed the following: I have examined & evaluated the patient, The case was reviewed & discussed with the resident, I agree w/resident's findings & plan, Exceptions are as noted - HPI HPI: 08/31/19 15:09 The patient is a 88y/o female with a PMH of HTN, Colon CA s/p resection 2013, dementia presents from wound care clinic (Dr. Dawn) for IV abx for infected sacral wound. p is here with her home health aid, who states sacral wound has gotten worse. pt has demential unable to provide history herself, however states she is not in pain currently only when she moves. no f/c no n/v no other complaints. Allergies: Codeine, Penicillins 08/31/19 16:04 - Physicial Exam PE: 08/31/19 16:05 awake alert lungs clear bilat heart systolic 3 /6 murmur, no r/g abd soft nt nd ext wwp. no edema. no calf tenderness. skin warm and dry. buttock wound, bilat hip trochanteric decubs, sacral wound to bone. alert oriented x 1. 08/31/19 16:21 - Medical Decision Making 08/31/19 16:06 88 yo F with h/o dementia, wounds, here with worsening sacral wound. plan admit for iv abx. will obtain basic labs, cultures. . bobde infectious disease was consulted. will given vanco Heart Score/ECG Review #1 General ECG Interpretation: Sinus Rhythm, Normal Rate (100), Normal Intervals, No acute ischemic changes Compared to previous ECG there are: No significant change (comparison 01/01/18 RBBB, flattened T wave II only.) Discharge - Discharge Information Problems reviewed: Yes Clinical Impression/Diagnosis: Decubitus ulcers Condition: Stable - Follow up/Referral - Patient Discharge Instructions - Post Discharge Activity
[2019-08-31] MEDS ORDERED: VANCOMYCIN 1 GM in D5W (PRE-DOCKED) 1,000 MG/250 ML IVPB ONE (16:13)
[2019-08-31] MEDS ORDERED: VANCOMYCIN 1 GRAM (PRE-DOCKED) 1,000 MG/250 ML BAG IVPB ONE (16:29)
[2019-08-31 16:49] LABS: BASO % 0.9 % (0-2.0); EOS % 0.6 % (0-4.5); HEMATOCRIT 33.5 % (32.4-45.2); HEMOGLOBIN 10.9 GM/dL (10.7-15.3); LYMPH % 6.2 % (8-40); MCH 29.8 pg (25.7-33.7); MCHC 32.4 g/dl (32.0-36.0); MEAN PLT VOLUME 9.3 fl (7.5-11.1); MONO % 4.6 % (3.8-10.2); NEUT % 87.7 % (42.8-82.8); PLATELET COUNT 243 K/MM3 (134-434); RBC 3.64 M/mm3 (3.60-5.2); WHITE BLOOD COUNT 13.9 K/mm3 (4.0-10.0)
[2019-08-31 17:21] LABS: ALBUMIN 2.5 g/dl (3.4-5.0); BILIRUBIN,TOTAL 0.4 mg/dL (0.2-1); BLOOD UREA NITROGEN 34.6 mg/dL (7-18); CALCIUM 10.2 mg/dL (8.5-10.1); CREATININE 0.5 mg/dL (0.55-1.3); MAGNESIUM 2.4 mg/dL (1.8-2.4); POTASSIUM 3.6 mmol/L (3.5-5.1); TOT PROT 6.2 g/dl (6.4-8.2)
[2019-08-31] MEDS: D5-1/2NS+20 MEQ KCL - 20 MEQ/1,000 ML INFUS.BAG IV SCH (17:21)
[2019-09-01] MEDS ORDERED: AZTREONAM 1 GM in DEXTROSE 5%-WATER - 50 ML IVPB ONE (08:31)
--- NOTE | 2019-09-01 08:34 | PN ---
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, Physician Chief Complaint: Patient seen and examined at the bedside, no acute events from last night, no labored breathing. History of Present Illness: This 88 yr old w/f with PMH of HTN, colon cancer, s/p resection of colon, dementia admitted via ER with an acutely infected decubiti of hips, buttocks, and sacrum. - Current Medication List Current Medications: Active Medications Acetaminophen (Tylenol -) 500 mg PO Q4H PRN PRN Reason: MODERATE PAIN Potassium Chloride/Dextrose/Sod Cl (D5-1/2ns+20 Meq Kcl -) 20 meq in 1,000 mls @ 42 mls/hr IV ASDIR MORIAH Last Admin: 08/31/19 17:21 Dose: 42 mls/hr Documented by: - Objective Vital Signs: Vital Signs Temperature 99 F 09/01/19 05:59 Pulse Rate 98 H 09/01/19 05:59 Respiratory Rate 16 09/01/19 05:59 Blood Pressure 101/56 L 09/01/19 05:59 O2 Sat by Pulse Oximetry (%) 94 L 09/01/19 05:59 Constitutional: Yes: No Distress, Calm, Cachectic, Thin Eyes: Yes: Conjunctiva Clear, EOM Intact HENT: Yes: Atraumatic, Normocephalic Neck: Yes: Supple, Trachea Midline Cardiovascular: Yes: Regular Rate and Rhythm Respiratory: Yes: Regular, CTA Bilaterally Gastrointestinal: Yes: Normal Bowel Sounds, Soft ...Rectal Exam: Yes: Deferred Genitourinary: Yes: Incontinence Breast(s): Yes: WNL Musculoskeletal: Yes: Muscle Weakness Extremities: Yes: Cool Edema: No Peripheral Pulses WNL: Yes Integumentary: Yes: Pressure Ulcer (multiple decubiti of sacrum, hips and buttocks) Neurological: Yes: Alert, Confusion, Unsteady Gait, Weakness Labs: CBC, BMP 08/31/19 16:15 08/31/19 16:15 Problem List - Problems (1) Decubitus ulcers Code(s): L89.90 - PRESSURE ULCER OF UNSPECIFIED SITE, UNSPECIFIED STAGE (2) Anemia Code(s): D64.9 - ANEMIA, UNSPECIFIED Qualifiers: Anemia type: iron deficiency Iron deficiency anemia type: unspecified iron deficiency Qualified Code(s): D50.9 - Iron deficiency anemia, unspecified (3) Constipation Code(s): K59.00 - CONSTIPATION, UNSPECIFIED (4) Dementia Code(s): F03.90 - UNSPECIFIED DEMENTIA WITHOUT BEHAVIORAL DISTURBANCE (5) Fracture of pubic ramus Code(s): S32.599A - OTH FRACTURE OF UNSP PUBIS, INIT ENCNTR FOR CLOSED FRACTURE (6) History of colon cancer Code(s): Z85.038 - PERSONAL HISTORY OF MALIGNANT NEOPLASM OF LARGE INTESTINE (7) Inability to ambulate due to hip Code(s): R26.2 - DIFFICULTY IN WALKING, NOT ELSEWHERE CLASSIFIED (8) Intertrochanteric fracture of right hip Code(s): S72.141A - DISPLACED INTERTROCHANTERIC FRACTURE OF RIGHT FEMUR, INIT (9) Small bowel obstruction Code(s): K56.609 - UNSP INTESTNL OBST, UNSP TO PARTIAL VERSUS COMPLETE OBST (10) Syncope and collapse Code(s): R55 - SYNCOPE AND COLLAPSE (11) Bacteremia due to Gram-negative bacteria Code(s): R78.81 - BACTEREMIA (12) Leukocytosis Code(s): D72.829 - ELEVATED WHITE BLOOD CELL COUNT, UNSPECIFIED Assessment/Plan Assessment/plan: acute osteomyelitis, acutely infected multiple decubiti of sacrum, hips and buttocks, acute leukocytosis, acute gram negative bacilli bacteremia, acute sepsis, acute volume depletion, acute prerenal azotemia, HTN, colon cancer, dementia, s/p colon resection; IV fluids, IV antibiotics Aztreonm and Vancomycin, DEDE stockings, DVT/GI prophylaxis, consult to ID pending, p hysical therapy, oxygen saturation 94% on room air.
--- NOTE | 2019-09-01 10:13 | EKG ---
Test Reason : Blood Pressure : / mmHG Vent. Rate : 100 BPM Atrial Rate : 100 BPM P-R Int : 134 ms QRS Dur : 124 ms QT Int : 368 ms P-R-T Axes : 051 064 042 degrees QTc Int : 474 ms NORMAL SINUS RHYTHM RIGHT BUNDLE BRANCH BLOCK ABNORMAL ECG WHEN COMPARED WITH ECG OF 01-JAN-2018 03:18, NONSPECIFIC T WAVE ABNORMALITY NOW EVIDENT IN ANTERIOR LEADS Confirmed by Agus Patel MD ([id number]) on 09/01/2019 10:13:07 AM Referred By: Confirmed By:Agus Patel MD
[2019-09-01] MEDS: ACETAMINOPHEN 500 MG TABLET (FP) PO PRN (10:39)
[2019-09-01] MEDS: PANTOPRAZOLE 40 MG TABLET PO SCH (10:39)
[2019-09-01] MEDS: ENOXAPARIN NA (PORCINE) 40 MG/0.4 ML DISP.SYRIN SQ SCH (10:40)
[2019-09-01] MEDS ORDERED: PROPOFOL 20 ML ONE (10:57)
[2019-09-01] MEDS ORDERED: MIDAZOLAM HCL 2 MG/2 ML SINGLE DOSE VIAL ONE (10:57)
[2019-09-01] MEDS: D5-1/2NS+20 MEQ KCL - 20 MEQ/1,000 ML INFUS.BAG IV SCH ×2 (11:22→18:31)
[2019-09-01] MEDS ORDERED: ePHEDrine SULFATE 50 MG/1 ML AMPULE ONE (11:32)
[2019-09-01] MEDS ORDERED: PHENYLEPHRINE HCL 10 MG/1 ML SINGLE DOSE VIAL ONE (11:32)
[2019-09-01] MEDS ORDERED: DEXAMETHASONE SOD PHOSPHATE 4 MG/1 ML VIAL ONE (12:09)
[2019-09-01] MEDS ORDERED: ONDANSETRON 4 MG/2 ML VIAL ONE (12:09)
--- NOTE | 2019-09-01 13:39 | CONSULT ---
- Consultation REQUESTING PROVIDER: Aldo Dawn - Wound Care CONSULT REQUEST: We have been asked to surgically evaluate this patient for bilateral hip and sacral wounds PCP: Kalpesh Connell History Source: Medical Record Limitations to Obtaining History: Dementia HPI: Called to susan 88 yr old w/f with PMH of HTN, colon cancer, s/p resection of colon, dementia admitted via ER with an acute infected decubitus ulcers of bilateral hips, low back, and buttocks. No other complaints. PMHx: Aortic Insufficiency, HTN, Hyperlipdemia, Mitral Insufficiency, Murmur (? mitral regurgitation), Dementia, Cancer, Thymoma surgery and RT, OA PSHx: Cholecystectomy, Partial Colectomy 2013, Colonoscopy, Right TKR, Upper Endoscopy Home Med: Extra Strength Tylenol, Collagenase, Mirtazapine Allergies: Codeine, PCNs ROS: Unable to obtain secondary to clinical condition PE: GENERAL: alert. not oriented (dementia). no apparent distress. cachectic LE: bilateral hip ulcers, infected, fibrinous slough, minimal purulent drainage. not malodorous. probes down to bone. 2+ pulses, warm, well-perfused. No calf tenderness. No peripheral edema. 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 No undermining/drainage/not malodorus Last Vital Signs Temp Pulse Resp BP Pulse Ox 97.6 F 100 H 16 115/55 L 95 09/01/19 12:26 09/01/19 12:26 09/01/19 12:26 09/01/19 12:26 09/01/19 12:18 CBC, BMP 08/31/19 16:15 08/31/19 16:15 Problem List - Problems (1) Decubitus ulcers Assessment/Plan: Bilateral hip & Sacral Ulcer Plan -Reposition every two hours while in bed -Air mattress recommended -Use drawsheets and Trendelenburg when repositioning to reduce friction and shear -Manageincontinence via timely cleansing, use of appropriate incontinence di sposables and use of barrier ointment to intact skin -Ensure adequate hydration/nutrition, supplementation per primary team -Ensure off-loading to all bony areas (heels, ankles, hips and tailbone) with Allevyn/Optifoam -Clean open wounds with normal saline and apply liberal application of SANTYL to all wounds daily. -No need for surgical debridement at this time. Will attempt pharmocologic/enzymatic debridement first -Surgery Team to re-eval 09/06/19 and if no improvement will need to go to OR for formal debridement Above plan discussed with Dr. Dawn and agrees. Code(s): L89.90 - PRESSURE ULCER OF UNSPECIFIED SITE, UNSPECIFIED STAGE (2) Dementia Code(s): F03.90 - UNSPECIFIED DEMENTIA WITHOUT BEHAVIORAL DISTURBANCE (3) Osteoarthritis Code(s): M19.90 - UNSPECIFIED OSTEOARTHRITIS, UNSPECIFIED SITE (4) HTN (hypertension) Code(s): I10 - ESSENTIAL (PRIMARY) HYPERTENSION (5) Aortic insufficiency Code(s): I35.1 - NONRHEUMATIC AORTIC (VALVE) INSUFFICIENCY Visit type - Case Type Case Type: ED Admission - Emergency Emergency Visit: Yes ED Registration Date: 08/31/19 Care time: The patient presented to the Emergency Department on the above date and was hospitalized for further evaluation of their emergent condition. - New patient This patient is new to me today: Yes Date on this admission: 09/01/19
--- NOTE | 2019-09-01 13:52 | CON.ID ---
Consult Consult Specialty:: infectious diseases Referred by:: DR Roach Reason for Consultation:: sepsis,gm negative bacteremia - History of Present Illness Chief Complaint: weakness infected wound,osteo of the sacrum gm negative bacteremia History of Present Illness: 87 y/o female with PMH of HTN, Colon CA s/p resection 2013 , dementia and SBO sent from wound care clinic for 5 non-healing decubitus ulcers over her hips, back and buttocks bilaterally. Sacral ulcers present since last February, non- healing. Patient denies pain. 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 mitral regurgitation) Gastrointestinal: Yes: Cancer (partial colectomy 2013 [facility]. No adjuvant therapy ) Hepatobiliary: No: Cirrhosis, Cholelithiasis, Cholecystitis, Choledocholithiasis, Hepatitis A, Hepatitis B, Hepatitis C, Other Renal/: No: Renal Failure, Renal Inusuff, BPH, Cancer, Hematuria, He modialysis, Neurogenic Bladder, Renal Calculi, UTI, Other ...: No Infectious Disease: No: AIDS, C-Diff, Herpes Zoster, HIV, MRSA, STD's, Tuber culosis, VREF, Other Psych: No: Addictions, Anxiety, Bipolar, Depression, Panic, Psychosis, Schizophrenia, Other Musculoskeletal: Yes: Osteoarthritis Rheumatology: No: Fibromyalgia, Gout, Lupus, Rheumatoid Arthritis, Sarcoidosis, Vasculitis, Other ENT: No: Allergic Rhinitis, Sinusitis, Other Endocrine: No: Jose's Disease, Ebony's Disease, Diabetes Insipidus, Diabetes Mellitus, Hyperparathyroidism, Hyperthyroidism, Hypothyroidism, Osteopenia, SIADH, Other Dermatology: No: Basal Cell, Cellulitis, Eczema, Melanoma, Psoriasis, Squamous Cell, Other Additional Medical History: Thymoma RT'ed and resected. Pelvic fracture managed conservatively 2016 - Past Surgical History Past Surgical History: Yes: Cholecystectomy, Colectomy, Colonoscopy, Joint Replacement (right TKR), Upper Endoscopy - Alcohol/Substance Use Hx Alcohol Use: No History of Substance Use: reports: None - Smoking History Smoking history: Never smoked Have you smoked in the past 12 months: No - Social History Usual Living Arrangement: Assisted Living ADL: Support Services History of Recent Travel: No Home Medications - Allergies Allergies/Adverse Reactions: Allergies Allergy/AdvReac Type Severity Reaction Status Date / Time codeine Allergy Verified 08/31/19 13:34 Penicillins Allergy Verified 08/31/19 13:34 - Home Medications Home Medications: Ambulatory Orders Acetaminophen [Tylenol .Extra-Strength -] 500 mg PO Q4H PRN 01/26/17 Collagenase Clostridium Hist. [Santyl] 1 applic TP DAILY #90 oint...g. 04/27/19 Mirtazapine 3 tab PO HS 08/31/19 Review of Systems - Review of Systems Constitutional: reports: No Symptoms Eyes: reports: No Symptoms HENT: reports: No Symptoms Neck: reports: No Symptoms Cardiovascular: reports: No Symptoms Respiratory: reports: No Symptoms Gastrointestinal: reports: No Symptoms Genitourinary: reports: No Symptoms Musculoskeletal: reports: Other Integumentary: reports: No Symptoms Neurological: reports: Other Endocrine: reports: No Symptoms Hematology/Lymphatic: reports: No Symptoms Psychiatric: reports: No Symptoms Physical Exam Vital Signs: Vital Signs Temperature 97.6 F 09/01/19 12:26 Pulse Rate 100 H 09/01/19 12:26 Respiratory Rate 16 09/01/19 12:26 Blood Pressure 115/55 L 09/01/19 12:26 O2 Sat by Pulse Oximetry (%) 95 09/01/19 12:18 Constitutional: Yes: Thin, Other (failure to thrive) Eyes: Yes: Conjunctiva Clear HENT: Yes: Atraumatic, Normocephalic Neck: Yes: Supple, Trachea Midline Cardiovascular: Yes: Regular Rate and Rhythm Respiratory: Yes: Regular, CTA Bilaterally Gastrointestinal: Yes: Normal Bowel Sounds, Soft Musculoskeletal: Yes: Other Extremities: Yes: Other (contracted) Wound/Incision: Yes: Other (multiple wounds with sacral bone osteo exposed) Neurological: Yes: Alert, Oriented Psychiatric: Yes: Alert, Oriented Labs: CBC, BMP 08/31/19 16:15 08/31/19 16:15 Assessment/Plan this patient with multiple medical issues coming in with multiple ulcers infected and draining cx are send blood cx are positive we will continue aztreonam as well as vanco repeat blood testing will be ordered wound care await for wound cx
[2019-09-01] MEDS: SODIUM HYPOCHLORITE 0.5% 473 ML- BULK BOTTLE TP SCH ×2 (15:01→16:04)
[2019-09-01] MEDS: VANCOMYCIN 1 GRAM (PRE-DOCKED) 1,000 MG/250 ML BAG IVPB SCH (15:01)
[2019-09-01] MEDS ORDERED: VANCOMYCIN 1 GM PREMIX - 1 GM/200 ML BAG IVPB SCH (16:00)
[2019-09-01] MEDS: AZTREONAM 1 GM in DEXTROSE 5%-WATER - 50 ML IVPB SCH (18:29)
[2019-09-02] MEDS: D5-1/2NS+20 MEQ KCL - 20 MEQ/1,000 ML INFUS.BAG IV SCH ×2 (00:20→17:07)
[2019-09-02] MEDS: AZTREONAM 1 GM in DEXTROSE 5%-WATER - 50 ML IVPB SCH ×3 (01:51→17:07)
[2019-09-02 08:09] LABS: BASO % 0.3 % (0-2.0); EOS % 1.1 % (0-4.5); HEMATOCRIT 33.2 % (32.4-45.2); HEMOGLOBIN 10.8 GM/dL (10.7-15.3); LYMPH % 6.6 % (8-40); MCH 29.7 pg (25.7-33.7); MCHC 32.6 g/dl (32.0-36.0); MEAN CELL VOLUME 91.2 fl (80-96); MEAN PLT VOLUME 8.6 fl (7.5-11.1); MONO % 5.7 % (3.8-10.2); NEUT % 86.3 % (42.8-82.8); PLATELET COUNT 203 K/MM3 (134-434); RBC 3.64 M/mm3 (3.60-5.2); RDW 13.2 % (11.6-15.6); WHITE BLOOD COUNT 7.3 K/mm3 (4.0-10.0)
[2019-09-02 08:36] LABS: ALBUMIN 2.2 g/dl (3.4-5.0); BILIRUBIN,TOTAL 0.3 mg/dL (0.2-1); BLOOD UREA NITROGEN 13.8 mg/dL (7-18); CALCIUM 9.8 mg/dL (8.5-10.1); TOT PROT 5.5 g/dl (6.4-8.2)
[2019-09-02 08:43] LABS: CREATININE 0.4 mg/dL (0.55-1.3)
--- NOTE | 2019-09-02 09:24 | PN ---
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, Physician Chief Complaint: Patient seen and examined at the bedside, no acute events from last night, afebrile, oxygen saturation 96% on room air. History of Present Illness: This 88 yr old w/f with PMH of HTN, colon cancer, s/p resection of colon, dementia admitted via ER with an acutely infected multiple decubiti of hips, left buttock and sacrum and an acute gram negative bacilli bacteremia. - Current Medication List Current Medications: Active Medications Acetaminophen (Tylenol -) 500 mg PO Q4H PRN PRN Reason: MODERATE PAIN Last Admin: 09/01/19 10:39 Dose: 500 mg Documented by: Enoxaparin Sodium (Lovenox -) 40 mg SQ DAILY MORIAH Last Admin: 09/01/19 10:40 Dose: 40 mg Documented by: Potassium Chloride/Dextrose/Sod Cl (D5-1/2ns+20 Meq Kcl -) 20 meq in 1,000 mls @ 42 mls/hr IV ASDIR MORIAH Last Admin: 09/02/19 00:20 Dose: 42 mls/hr Documented by: Aztreonam 1 gm/ Dextrose 50 mls @ 100 mls/hr IVPB Q8H-IV MORIAH; Protocol Last Admin: 09/02/19 01:51 Dose: 100 mls/hr Documented by: Vancomycin HCl (Vancomycin (Pre-Docked)) 1,000 mg in 250 mls @ 200 mls/hr IVPB Q24H MORIAH; Protocol Last Admin: 09/01/19 15:01 Dose: 200 mls/hr Documented by: Pantoprazole Sodium (Protonix -) 40 mg PO DAILY MORIAH Last Admin: 09/01/19 10:39 Dose: 40 mg Documented by: Sodium Hypochlorite (Dakin's Solution 0.5% (Full Strength) -) 1 applic TP DAILY MORIAH Last Admin: 09/01/19 16:04 Dose: 1 applic Documented by: - Objective Vital Signs: Vital Signs Temperature 98.1 F 09/02/19 05:00 Pulse Rate 102 H 09/02/19 05:00 Respiratory Rate 18 09/02/19 05:00 Blood Pressure 101/57 L 09/02/19 05:00 O2 Sat by Pulse Oximetry (%) 96 09/01/19 21:00 Constitutional: Yes: No Distress, Calm, Cachectic, Thin Eyes: Yes: Conjunctiva Clear, EOM Intact HENT: Yes: Atraumatic, Normocephalic Neck: Yes: Supple, Trachea Midline Cardiovascular: Yes: Regular Rate and Rhythm Respiratory: Yes: Regular, CTA Bilaterally Gastrointestinal: Yes: Normal Bowel Sounds, Soft ...Rectal Exam: Yes: Deferred Genitourinary: Yes: Kohli Present Breast(s): Yes: WNL Musculoskeletal: Yes: Muscle Weakness Extremities: Yes: WNL Edema: No Peripheral Pulses WNL: Yes Integumentary: Yes: Pressure Ulcer (left buttock, hips and sacrum) Neurological: Yes: Alert, Unsteady Gait, Weakness ...Motor Strength: LUE (generalized muscle weakness of all extremities) Labs: CBC, BMP 09/02/19 07:20 09/02/19 07:20 - ....Imaging Other: Report Reviewed (lab data reviewed) Problem List - Problems (1) Decubitus ulcers Code(s): L89.90 - PRESSURE ULCER OF UNSPECIFIED SITE, UNSPECIFIED STAGE (2) Anemia Code(s): D64.9 - ANEMIA, UNSPECIFIED Qualifiers: Anemia type: iron deficiency Iron deficiency anemia type: unspecified iron deficiency Qualified Code(s): D50.9 - Iron deficiency anemia, unspecified (3) Constipation Code(s): K59.00 - CONSTIPATION, UNSPECIFIED (4) Dementia Code(s): F03.90 - UNSPECIFIED DEMENTIA WITHOUT BEHAVIORAL DISTURBANCE (5) Fracture of pubic ramus Code(s): S32.599A - OTH FRACTURE OF UNSP PUBIS, INIT ENCNTR FOR CLOSED FRACTURE (6) History of colon cancer Code(s): Z85.038 - PERSONAL HISTORY OF MALIGNANT NEOPLASM OF LARGE INTESTINE (7) Inability to ambulate due to hip Code(s): R26.2 - DIFFICULTY IN WALKING, NOT ELSEWHERE CLASSIFIED (8) Intertrochanteric fracture of right hip Code(s): S72.141A - DISPLACED INTERTROCHANTERIC FRACTURE OF RIGHT FEMUR, INIT (9) Small bowel obstruction Code(s): K56.609 - UNSP INTESTNL OBST, UNSP TO PARTIAL VERSUS COMPLETE OBST (10) Syncope and collapse Code(s): R55 - SYNCOPE AND COLLAPSE (11) Bacteremia due to Gram-negative bacteria Code(s): R78.81 - BACTEREMIA (12) Leukocytosis Code(s): D72.829 - ELEVATED WHITE BLOOD CELL COUNT, UNSPECIFIED Assessment/Plan Assessment/plan: acutely infected multiple decubiti of the sacrum, left buttock and hips, acute gram negative bacilli bacteremia, acute leukocytosis with neutrophilia, acute prerenal azotemia, acute volume depletion; IV fluids, IV Aztreonam and Vancomycin as per ID for treatment of acutely infected multiple decubiti, topical Dakin's solution, DVT/GI prophylaxis, physical therapy.
[2019-09-02] MEDS: PANTOPRAZOLE 40 MG TABLET PO SCH (10:34)
[2019-09-02] MEDS: ENOXAPARIN NA (PORCINE) 40 MG/0.4 ML DISP.SYRIN SQ SCH (10:34)
[2019-09-02] MEDS: SODIUM HYPOCHLORITE 0.5% 473 ML- BULK BOTTLE TP SCH (10:35)
--- NOTE | 2019-09-02 13:27 | PN ---
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, Physician History of Present Illness: stable no complaints - Current Medication List Current Medications: Active Medications Acetaminophen (Tylenol -) 500 mg PO Q4H PRN PRN Reason: MODERATE PAIN Last Admin: 09/01/19 10:39 Dose: 500 mg Documented by: Enoxaparin Sodium (Lovenox -) 40 mg SQ DAILY [facility] Last Admin: 09/02/19 10:34 Dose: 40 mg Documented by: Potassium Chloride/Dextrose/Sod Cl (D5-1/2ns+20 Meq Kcl -) 20 meq in 1,000 mls @ 42 mls/hr IV [facility] Last Admin: 09/02/19 00:20 Dose: 42 mls/hr Documented by: Aztreonam 1 gm/ Dextrose 50 mls @ 100 mls/hr IVPB Q8H-IV [facility]; Protocol Last Admin: 09/02/19 10:34 Dose: 100 mls/hr Documented by: Vancomycin HCl (Vancomycin (Pre-Docked)) 1,000 mg in 250 mls @ 200 mls/hr IVPB Q24H [facility]; Protocol Last Admin: 09/01/19 15:01 Dose: 200 mls/hr Documented by: Pantoprazole Sodium (Protonix -) 40 mg PO DAILY [facility] Last Admin: 09/02/19 10:34 Dose: 40 mg Documented by: Sodium Hypochlorite (Dakin's Solution 0.5% (Full Strength) -) 1 applic TP DAILY [facility] Last Admin: 09/02/19 10:35 Dose: 1 applic Documented by: - Objective Vital Signs: Vital Signs Temperature 98.1 F 09/02/19 05:00 Pulse Rate 102 H 09/02/19 05:00 Respiratory Rate 18 09/02/19 05:00 Blood Pressure 101/57 L 09/02/19 05:00 O2 Sat by Pulse Oximetry (%) 96 09/01/19 21:00 Constitutional: Yes: Calm, Mild Distress, Other (failure to thrive) Cardiovascular: Yes: S1, S2 Respiratory: Yes: Regular, CTA Bilaterally Gastrointestinal: Yes: Normal Bowel Sounds, Soft Musculoskeletal: Yes: Other Extremities: Yes: Other Wound/Incision: Yes: Other (as described) Psychiatric: Yes: Alert, Oriented Labs: CBC, BMP 09/02/19 07:20 09/02/19 07:20 Assessment/Plan plan continue current mgmt wound care nutrition rest as per the team
[2019-09-02] MEDS: ACETAMINOPHEN 500 MG TABLET (FP) PO PRN (15:35)
[2019-09-02] MEDS: VANCOMYCIN 1 GRAM (PRE-DOCKED) 1,000 MG/250 ML BAG IVPB SCH (15:41)
[2019-09-02] MEDS ORDERED: ACETAMINOPHEN 650 MG/20.3 ML ORAL SOLUTION (CUPS) PO ONE (17:03)
[2019-09-02] MEDS: COLLAGENASE CLOSTRIDIUM HIST. 30 GRAMS TUBE TP SCH (17:07)
[2019-09-02] MEDS ORDERED: ACETAMINOPHEN INJECTION 100 ML IVPB ONE (17:17)
[2019-09-02] MEDS ORDERED: ACETAMINOPHEN 1000 MG/100 ML VIAL (NON FORMULARY) IVPB ONE (17:51)
[2019-09-03] MEDS: AZTREONAM 1 GM in DEXTROSE 5%-WATER - 50 ML IVPB SCH ×3 (02:05→17:41)
[2019-09-03] MEDS: D5-1/2NS+20 MEQ KCL - 20 MEQ/1,000 ML INFUS.BAG IV SCH ×2 (02:40→17:40)
[2019-09-03 07:41] LABS: BASO % 0.4 % (0-2.0); EOS % 2.1 % (0-4.5); HEMATOCRIT 33.6 % (32.4-45.2); HEMOGLOBIN 11.1 GM/dL (10.7-15.3); LYMPH % 8.7 % (8-40); MCH 30.2 pg (25.7-33.7); MCHC 33.1 g/dl (32.0-36.0); MEAN CELL VOLUME 91.5 fl (80-96); MEAN PLT VOLUME 9.1 fl (7.5-11.1); MONO % 6.6 % (3.8-10.2); NEUT % 82.2 % (42.8-82.8); PLATELET COUNT 207 K/MM3 (134-434); RBC 3.68 M/mm3 (3.60-5.2); RDW 12.7 % (11.6-15.6)
[2019-09-03 07:44] LABS: ALBUMIN 2.2 g/dl (3.4-5.0); BILIRUBIN,TOTAL 0.4 mg/dL (0.2-1); BLOOD UREA NITROGEN 11.3 mg/dL (7-18); CREATININE 0.3 mg/dL (0.55-1.3)
[2019-09-03 07:45] LABS: TOT PROT 5.6 g/dl (6.4-8.2)
--- NOTE | 2019-09-03 08:56 | PN ---
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, Physician Chief Complaint: Patient seen and examined at the bedside, no acute events from last night, afebrile, fair appetite. History of Present Illness: This 88 yr old w/f with PMH of HTN, colon cancer, s/p colon resection, dementia admitted via ER with an acutely infected multiple decubiti of the left buttock, hips, and sacrum and a gram negative bacilli bacteremia. - Current Medication List Current Medications: Active Medications Acetaminophen (Tylenol -) 500 mg PO Q4H PRN PRN Reason: MODERATE PAIN Last Admin: 09/01/19 10:39 Dose: 500 mg Documented by: Amino Acids (Prosource No Carb Liquid Pkt) 30 ml PO BID@0800,1730 [facility] Collagenase (Santyl -) 1 applic TP DAILY [facility]; Protocol Last Admin: 09/02/19 17:07 Dose: 1 applic Documented by: Enoxaparin Sodium (Lovenox -) 40 mg SQ DAILY [facility] Last Admin: 09/02/19 10:34 Dose: 40 mg Documented by: Potassium Chloride/Dextrose/Sod Cl (D5-1/2ns+20 Meq Kcl -) 20 meq in 1,000 mls @ 42 mls/hr IV [facility] Last Admin: 09/03/19 02:40 Dose: 42 mls/hr Documented by: Aztreonam 1 gm/ Dextrose 50 mls @ 100 mls/hr IVPB Q8H-IV [facility]; Protocol Last Admin: 09/03/19 02:05 Dose: 100 mls/hr Documented by: Vancomycin HCl (Vancomycin (Pre-Docked)) 1,000 mg in 250 mls @ 200 mls/hr IVPB Q24H [facility]; Protocol Last Admin: 09/02/19 15:41 Dose: 200 mls/hr Documented by: Pantoprazole Sodium (Protonix -) 40 mg PO DAILY [facility] Last Admin: 09/02/19 10:34 Dose: 40 mg Documented by: Sodium Hypochlorite (Dakin's Solution 0.5% (Full Strength) -) 1 applic TP DAILY [facility] Last Admin: 09/02/19 10:35 Dose: 1 applic Documented by: - Objective Vital Signs: Vital Signs Temperature 98.4 F 09/03/19 05:00 Pulse Rate 100 H 09/03/19 05:00 Respiratory Rate 20 09/03/19 05:00 Blood Pressure 107/68 09/03/19 05:00 O2 Sat by Pulse Oximetry (%) 96 09/02/19 21:00 Constitutional: Yes: No Distress, Calm, Cachectic, Thin Eyes: Yes: Conjunctiva Clear, EOM Intact HENT: Yes: Atraumatic, Normocephalic Neck: Yes: Supple, Trachea Midline Cardiovascular: Yes: Regular Rate and Rhythm Respiratory: Yes: Regular, CTA Bilaterally Gastrointestinal: Yes: Normal Bowel Sounds, Soft ...Rectal Exam: Yes: Deferred Genitourinary: Yes: Kohli Present Breast(s): Yes: WNL Musculoskeletal: Yes: Muscle Weakness Extremities: Yes: WNL Edema: No Peripheral Pulses WNL: Yes Integumentary: Yes: Pressure Ulcer (left buttock, hips and sacrum) Neurological: Yes: Alert, Unsteady Gait, Weakness ...Motor Strength: LUE (generalized weakness of all extremities) Psychiatric: Yes: Alert Labs: CBC, BMP 09/03/19 06:29 09/03/19 06:29 - ....Imaging Other: Report Reviewed (lab data reviewed) Problem List - Problems (1) Decubitus ulcers Code(s): L89.90 - PRESSURE ULCER OF UNSPECIFIED SITE, UNSPECIFIED STAGE (2) Anemia Code(s): D64.9 - ANEMIA, UNSPECIFIED Qualifiers: Anemia type: iron deficiency Iron deficiency anemia type: unspecified iron deficiency Qualified Code(s): D50.9 - Iron deficiency anemia, unspecified (3) Constipation Code(s): K59.00 - CONSTIPATION, UNSPECIFIED (4) Dementia Code(s): F03.90 - UNSPECIFIED DEMENTIA WITHOUT BEHAVIORAL DISTURBANCE (5) Fracture of pubic ramus Code(s): S32.599A - OTH FRACTURE OF UNSP PUBIS, INIT ENCNTR FOR CLOSED FRACTURE (6) History of colon cancer Code(s): Z85.038 - PERSONAL HISTORY OF MALIGNANT NEOPLASM OF LARGE INTESTINE (7) Inability to ambulate due to hip Code(s): R26.2 - DIFFICULTY IN WALKING, NOT ELSEWHERE CLASSIFIED (8) Intertrochanteric fracture of right hip Code(s): S72.141A - DISPLACED INTERTROCHANTERIC FRACTURE OF RIGHT FEMUR, INIT (9) Small bowel obstruction Code(s): K56.609 - UNSP INTESTNL OBST, UNSP TO PARTIAL VERSUS COMPLETE OBST (10) Syncope and collapse Code(s): R55 - SYNCOPE AND COLLAPSE (11) Bacteremia due to Gram-negative bacteria Code(s): R78.81 - BACTEREMIA (12) Leukocytosis Code(s): D72.829 - ELEVATED WHITE BLOOD CELL COUNT, UNSPECIFIED Assessment/Plan Assessment/plan: acutely infected multiple decubiti of the left buttock, hips and sacrum, acute E. Coli bacteremia, acute sepsis, wound culture of coccyx positive for an acute open wound infection with Proteus mirabilis, E. Coli, and Enterococcus, acute prerenal azotemia, acute volume depletion, HTN, colon cance r, s/p colon resection, DVT/GI prophylaxis, topical Collagenase, amino acids, physical therapy.
[2019-09-03] MEDS: ENOXAPARIN NA (PORCINE) 40 MG/0.4 ML DISP.SYRIN SQ SCH (09:55)
[2019-09-03] MEDS: AMINO ACIDS/PROTEIN HYDROLYS 30 ML LIQUID.PKT PO SCH ×2 (09:55→17:42)
[2019-09-03] MEDS: PANTOPRAZOLE 40 MG TABLET PO SCH (09:55)
--- NOTE | 2019-09-03 12:27 | PN ---
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, Physician History of Present Illness: stable says she does not feel too well not eating much - Current Medication List Current Medications: Active Medications Acetaminophen (Tylenol -) 500 mg PO Q4H PRN PRN Reason: MODERATE PAIN Last Admin: 09/01/19 10:39 Dose: 500 mg Documented by: Amino Acids (Prosource No Carb Liquid Pkt) 30 ml PO BID@0800,1730 [facility] Last Admin: 09/03/19 09:55 Dose: 30 ml Documented by: Collagenase (Santyl -) 1 applic TP DAILY [facility]; Protocol Last Admin: 09/02/19 17:07 Dose: 1 applic Documented by: Enoxaparin Sodium (Lovenox -) 40 mg SQ DAILY [facility] Last Admin: 09/03/19 09:55 Dose: 40 mg Documented by: Potassium Chloride/Dextrose/Sod Cl (D5-1/2ns+20 Meq Kcl -) 20 meq in 1,000 mls @ 42 mls/hr IV [facility] Last Admin: 09/03/19 02:40 Dose: 42 mls/hr Documented by: Aztreonam 1 gm/ Dextrose 50 mls @ 100 mls/hr IVPB Q8H-IV [facility]; Protocol Last Admin: 09/03/19 09:54 Dose: 100 mls/hr Documented by: Vancomycin HCl (Vancomycin (Pre-Docked)) 1,000 mg in 250 mls @ 200 mls/hr IVPB Q24H [facility]; Protocol Last Admin: 09/02/19 15:41 Dose: 200 mls/hr Documented by: Pantoprazole Sodium (Protonix -) 40 mg PO DAILY [facility] Last Admin: 09/03/19 09:55 Dose: 40 mg Documented by: Sodium Hypochlorite (Dakin's Solution 0.5% (Full Strength) -) 1 applic TP DAILY [facility] Last Admin: 09/02/19 10:35 Dose: 1 applic Documented by: - Objective Vital Signs: Vital Signs Temperature 98.2 F 09/03/19 09:00 Pulse Rate 101 H 09/03/19 09:00 Respiratory Rate 18 09/03/19 09:00 Blood Pressure 105/57 L 09/03/19 09:00 O2 Sat by Pulse Oximetry (%) 96 09/02/19 21:00 Constitutional: Yes: No Distress, Calm, Other (failure to thrive) Cardiovascular: Yes: S1, S2 Respiratory: Yes: Regular, CTA Bilaterally Gastrointestinal: Yes: Normal Bowel Sounds, Soft Musculoskeletal: Yes: Other Extremities: Yes: Other Wound/Incision: Yes: Dressing Dry and Intact Neurological: Yes: Alert Psychiatric: Yes: Alert Labs: CBC, BMP 09/03/19 06:29 09/03/19 06:29 Assessment/Plan Problem List - Problems (1) Decubitus ulcers Code(s): L89.90 - PRESSURE ULCER OF UNSPECIFIED SITE, UNSPECIFIED STAGE (2) Anemia Code(s): D64.9 - ANEMIA, UNSPECIFIED Qualifiers: Anemia type: iron deficiency Iron deficiency anemia type: unspecified iron deficiency Qualified Code(s): D50.9 - Iron deficiency anemia, unspecified (3) Constipation Code(s): K59.00 - CONSTIPATION, UNSPECIFIED (4) Dementia Code(s): F03.90 - UNSPECIFIED DEMENTIA WITHOUT BEHAVIORAL DISTURBANCE (5) Fracture of pubic ramus Code(s): S32.599A - OTH FRACTURE OF UNSP PUBIS, INIT ENCNTR FOR CLOSED FRACTURE (6) History of colon cancer Code(s): Z85.038 - PERSONAL HISTORY OF MALIGNANT NEOPLASM OF LARGE INTESTINE (7) Inability to ambulate due to hip Code(s): R26.2 - DIFFICULTY IN WALKING, NOT ELSEWHERE CLASSIFIED (8) Intertrochanteric fracture of right hip Code(s): S72.141A - DISPLACED INTERTROCHANTERIC FRACTURE OF RIGHT FEMUR, INIT (9) Small bowel obstruction Code(s): K56.609 - UNSP INTESTNL OBST, UNSP TO PARTIAL VERSUS COMPLETE OBST (10) Syncope and collapse Code(s): R55 - SYNCOPE AND COLLAPSE (11) Bacteremia due to Gram-negative bacteria Code(s): R78.81 - BACTEREMIA (12) Leukocytosis Code(s): D72.829 - ELEVATED WHITE BLOOD CELL COUNT, UNSPECIFIED Assessment/Plan will check vanco trough tomorrow repeat cx negative nutrition wound care rest as per the team
[2019-09-03] MEDS: COLLAGENASE CLOSTRIDIUM HIST. 30 GRAMS TUBE TP SCH ×2 (14:55→21:05)
[2019-09-03] MEDS: SODIUM HYPOCHLORITE 0.5% 473 ML- BULK BOTTLE TP SCH (14:55)
[2019-09-03] MEDS: VANCOMYCIN 1 GRAM (PRE-DOCKED) 1,000 MG/250 ML BAG IVPB SCH (15:47)
[2019-09-04] MEDS: AZTREONAM 1 GM in DEXTROSE 5%-WATER - 50 ML IVPB SCH ×3 (01:54→17:42)
[2019-09-04] MEDS: D5-1/2NS+20 MEQ KCL - 20 MEQ/1,000 ML INFUS.BAG IV SCH ×2 (06:25→17:04)
[2019-09-04 08:19] LABS: BASO % 0.3 % (0-2.0); EOS % 1.6 % (0-4.5); HEMATOCRIT 33.9 % (32.4-45.2); HEMOGLOBIN 10.9 GM/dL (10.7-15.3); LYMPH % 8.9 % (8-40); MCHC 32.2 g/dl (32.0-36.0); MEAN PLT VOLUME 8.7 fl (7.5-11.1); MONO % 6.8 % (3.8-10.2); NEUT % 82.4 % (42.8-82.8); PLATELET COUNT 232 K/MM3 (134-434); RBC 3.77 M/mm3 (3.60-5.2); RDW 12.7 % (11.6-15.6); WHITE BLOOD COUNT 7.9 K/mm3 (4.0-10.0)
--- NOTE | 2019-09-04 08:43 | PN ---
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, Physician Chief Complaint: Patient seen and examined at the bedside, nurse reports patient coughing during meal times. History of Present Illness: This 88 yr old w/f with PMH of HTN, colon cancer, s/p colon resection, dementia admitted via ER with an acutely infected multiple decubiti of the left buttock, hips and sacrum and gram negative bacilli bacteremia. - Current Medication List Current Medications: Active Medications Acetaminophen (Tylenol -) 500 mg PO Q4H PRN PRN Reason: MODERATE PAIN Last Admin: 09/01/19 10:39 Dose: 500 mg Documented by: Amino Acids (Prosource No Carb Liquid Pkt) 30 ml PO BID@0800,1730 [facility] Last Admin: 09/03/19 17:42 Dose: 30 ml Documented by: Collagenase (Santyl -) 1 applic TP BID [facility]; Protocol Last Admin: 09/03/19 21:05 Dose: 1 applic Documented by: Enoxaparin Sodium (Lovenox -) 40 mg SQ DAILY [facility] Last Admin: 09/03/19 09:55 Dose: 40 mg Documented by: Potassium Chloride/Dextrose/Sod Cl (D5-1/2ns+20 Meq Kcl -) 20 meq in 1,000 mls @ 42 mls/hr IV [facility] Last Admin: 09/04/19 06:25 Dose: 42 mls/hr Documented by: Aztreonam 1 gm/ Dextrose 50 mls @ 100 mls/hr IVPB Q8H-IV [facility]; Protocol Last Admin: 09/04/19 01:54 Dose: 100 mls/hr Documented by: Vancomycin HCl (Vancomycin (Pre-Docked)) 1,000 mg in 250 mls @ 200 mls/hr IVPB Q24H [facility]; Protocol Last Admin: 09/03/19 15:47 Dose: 200 mls/hr Documented by: Pantoprazole Sodium (Protonix -) 40 mg PO DAILY [facility] Last Admin: 09/03/19 09:55 Dose: 40 mg Documented by: Sodium Hypochlorite (Dakin's Solution 0.5% (Full Strength) -) 1 applic TP DAILY [facility] Last Admin: 09/03/19 14:55 Dose: Not Given Documented by: - Objective Vital Signs: Vital Signs Temperature 98.5 F 09/04/19 05:49 Pulse Rate 96 H 09/04/19 05:49 Respiratory Rate 20 09/04/19 05:49 Blood Pressure 103/60 09/04/19 05:49 O2 Sat by Pulse Oximetry (%) 95 09/03/19 21:00 Constitutional: Yes: No Distress, Calm, Cachectic, Thin Eyes: Yes: Conjunctiva Clear, EOM Intact HENT: Yes: Atraumatic, Normocephalic Neck: Yes: Supple, Trachea Midline Cardiovascular: Yes: Regular Rate and Rhythm Respiratory: Yes: Regular, CTA Bilaterally Gastrointestinal: Yes: Normal Bowel Sounds, Soft ...Rectal Exam: Yes: Deferred Genitourinary: Yes: Kohli Present Breast(s): Yes: WNL Musculoskeletal: Yes: Muscle Weakness Extremities: Yes: WNL Edema: No Peripheral Pulses WNL: Yes Integumentary: Yes: Pressure Ulcer (left buttock, hips and sacrum) Neurological: Yes: Alert, Unsteady Gait, Weakness ...Motor Strength: LUE (generalized muscle weakness of all extremities, muscle atrophy) Psychiatric: Yes: Alert Labs: CBC, BMP 09/04/19 08:00 - ....Imaging Other: Report Reviewed (lab data reviewed) Problem List - Problems (1) Decubitus ulcers Code(s): L89.90 - PRESSURE ULCER OF UNSPECIFIED SITE, UNSPECIFIED STAGE (2) Anemia Code(s): D64.9 - ANEMIA, UNSPECIFIED Qualifiers: Anemia type: iron deficiency Iron deficiency anemia type: unspecified iron deficiency Qualified Code(s): D50.9 - Iron deficiency anemia, unspecified (3) Constipation Code(s): K59.00 - CONSTIPATION, UNSPECIFIED (4) Dementia Code(s): F03.90 - UNSPECIFIED DEMENTIA WITHOUT BEHAVIORAL DISTURBANCE (5) Fracture of pubic ramus Code(s): S32.599A - OTH FRACTURE OF UNSP PUBIS, INIT ENCNTR FOR CLOSED FRACTURE (6) History of colon cancer Code(s): Z85.038 - PERSONAL HISTORY OF MALIGNANT NEOPLASM OF LARGE INTESTINE (7) Inability to ambulate due to hip Code(s): R26.2 - DIFFICULTY IN WALKING, NOT ELSEWHERE CLASSIFIED (8) Intertrochanteric fracture of right hip Code(s): S72.141A - DISPLACED INTERTROCHANTERIC FRACTURE OF RIGHT FEMUR, INIT (9) Small bowel obstruction Code(s): K56.609 - UNSP INTESTNL OBST, UNSP TO PARTIAL VERSUS COMPLETE OBST (10) Syncope and collapse Code(s): R55 - SYNCOPE AND COLLAPSE (11) Bacteremia due to Gram-negative bacteria Code(s): R78.81 - BACTEREMIA (12) Leukocytosis Code(s): D72.829 - ELEVATED WHITE BLOOD CELL COUNT, UNSPECIFIED Assessment/Plan Assessment/plan: acutely infected multiple decubiti of left buttock, hips and sacrum, E. Coli bacteremia, acute sepsis, wound culture of coccyx positive for enterococcus faecalis, proteus mirabilis and E. Coli, wound culture of the left hip is positive for Group D strep and Bacteroides, wound culture of right hip is positive for anaerobic gram negative bacilli Group D strep of Enterococcus, volume depletion, prerenal azotemia, acute oropharyngeal dysphagia, s/p colon resection, HTN, colon cancer; IV fluids, IV Aztreonam and Vancomycin as per ID for E. Coli bacteremia, sepsis and wound infections, DVT/GI prophylaxis, topical Collagenase, consult to Research Assistant Member, consult to speech pathologist for swallow eval, amino acids, topical sodium hypochlorite, physical therapy.
[2019-09-04 08:49] LABS: ALBUMIN 2.1 g/dl (3.4-5.0); BILIRUBIN,TOTAL 0.3 mg/dL (0.2-1); BLOOD UREA NITROGEN 17.1 mg/dL (7-18); CALCIUM 10.1 mg/dL (8.5-10.1); CREATININE 0.3 mg/dL (0.55-1.3); POTASSIUM 4.1 mmol/L (3.5-5.1); TOT PROT 5.7 g/dl (6.4-8.2)
[2019-09-04] MEDS: AMINO ACIDS/PROTEIN HYDROLYS 30 ML LIQUID.PKT PO SCH ×2 (09:34→17:42)
[2019-09-04] MEDS: ENOXAPARIN NA (PORCINE) 40 MG/0.4 ML DISP.SYRIN SQ SCH (09:34)
[2019-09-04] MEDS: PANTOPRAZOLE 40 MG TABLET PO SCH (09:34)
[2019-09-04] MEDS: COLLAGENASE CLOSTRIDIUM HIST. 30 GRAMS TUBE TP SCH ×2 (09:35→21:30)
[2019-09-04] MEDS: SODIUM HYPOCHLORITE 0.5% 473 ML- BULK BOTTLE TP SCH (09:35)
--- NOTE | 2019-09-04 10:54 | CONSULT ---
Admitting History and Physical - Admission History of Present Illness: 88 yr old w/f with PMH of HTN, colon cancer, s/p colon resection, dementia admitted via ER with an acutely infected multiple decubiti of the left buttock, hips and sacrum and gram negative bacilli bacteremia. Pt pleasantly confused.Reported to have poor appetite, despite much encouragement, with oral holding, intermittent cough Selected Entries 09/03/19 09/03/19 09/03/19 01:00 05:00 09:00 Breakfast Diet Tolerated Lunch Supper Temperature 98.1 F 98.4 F 98.2 F Blood Pressure 109/62 107/68 105/57 L 09/03/19 09/03/19 09/03/19 10:00 14:00 15:30 Breakfast 0 Diet Tolerated Refused Refused Lunch 0 Supper Temperature 98.4 F Blood Pressure 113/65 09/03/19 09/03/19 09/03/19 18:00 22:00 22:35 Breakfast Diet Tolerated Refused Lunch Supper 0 Temperature 99.7 F H 98.8 F Blood Pressure 102/57 L 100/55 L 09/04/19 09/04/19 05:49 10:00 Breakfast Diet Tolerated Lunch Supper Temperature 98.5 F 97.5 F L Blood Pressure 103/60 98/61 Laboratory Tests 08/31/19 08/31/19 09/04/19 16:15 16:35 08:00 WBC 13.9 H 7.9 COVID-19 ([facility]) Not detected Full code Diet order- soft chopped/ensure today Receiving puree/Ensure by RD, after conversation with pt's daughter. Pt tolerates this diet with much encouragement at [facility], with private [employer] SOLUTION ARCHITECT. 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 mitral regurgitation) Gastrointestinal: Yes: Cancer (partial colectomy 2013 [facility]. No adjuvant therapy ) Hepatobiliary: No: Cirrhosis, Cholelithiasis, Cholecystitis, Choledocholithiasis, Hepatitis A, Hepatitis B, Hepatitis C, Other Renal/: No: Renal Failure, Renal Inusuff, BPH, Cancer, Hematuria, Hemodialysis, Neurogenic Bladder, Renal Calculi, UTI, Other ...: No Heme/Onc: Yes: Cancer (colon cancer resected 2013 at [facility], Thymoma surgery and RT) Infectious Disease: No: AIDS, C-Diff, Herpes Zoster, HIV, MRSA, STD's, Tuberculosis, VREF, Other Psych: No: Addictions, Anxiety, Bipolar, Depression, Panic, Psychosis, Schizophrenia, Other Musculoskeletal: Yes: Osteoarthritis Rheumatology: No: Fibromyalgia, Gout, Lupus, Rheumatoid Arthritis, Sarcoidosis, Vasculitis, Other ENT: No: Allergic Rhinitis, Sinusitis, Other Endocrine: No: [place]'s Disease, Ebony's Disease, Diabetes Insipidus, Diabetes Mellitus, Hyperparathyroidism, Hyperthyroidism, Hypothyroidism, Osteopenia, SIADH, Other Dermatology: No: Basal Cell, Cellulitis, Eczema, Melanoma, Psoriasis, Squamous Cell, Other - Past Surgical History Past Surgical History: Yes: Cholecystectomy, Colectomy, Colonoscopy, Joint Replacement (right TKR), Upper Endoscopy - Smoking History Smoking history: Never smoked Have you smoked in the past 12 months: No - Alcohol/Substance Use Hx Alcohol Use: No History of Substance Use: reports: None - Social History ADL: Support Services History of Recent Travel: No History - Admission Reason For Visit: PRESSURE INJURY OF SKIN - General Mental Status: Awake and Alert, Able to Follow Commands, Forgetful, Vague, Conf used Attention: Intact Ability to Follow Directions: Good Head/Neck Control: Good - Hearing Hearing: Impaired Hearing Aide: No With Patient: No Speech Evaluation - Communication Primary Language: ALB[place] Communication: Yes: Simple Responses - Speech Production Able to Make Needs Known: Yes: WNL Intelligibility: Yes: WNL - Speech Characteristics Voice Loudness: Normal Voice Pitch: Yes: Normal Voice Phonatory-based Quality: Yes: Normal Speech Pattern: Normal Speech Clarity: < 100% Nasal Resonance: Normal Articulation: Yes: Precise - Language/Auditory Comprehension Follows: Yes: 1 Stage Simple Commands Observation: Able to respond to yes/no queries: Yes, Yes/No Confusion: Yes (at times), Comprehends Conversational Speech: Yes (simple) - Language/Verbal Expression Able to Communicate Wants and Needs: Yes: Mildly Impaired - Swallow Evaluation/Bedside Assessment Current Nutritional Intake: Dysphagia Minced, Thin Liquids Oral Secretions: Yes: WFL Dentition: Yes: Adequate Facial Symmetry at Rest: Symmetrical Facial Symmetry on Retraction: Symmetrical Facial Movement: Controlled Sensation: Normal Against Resistance Opening: Normal Against Resistance Closing: Normal Pucker Lips: Normal Smile: Normal Lingual Movement: Normal, Symmetric Lingual Speed of Movement: Normal Lingual Movement Strgth Against Opposition: Normal Lingual Movement Characteristics: Normal Velopharyngeal Movement: Normal Laryngeal Elevation: WFL Laryngeal Movement: Able to Palpate Rate of Intake: WFL Bolus Size: WFL Labial Seal: WFL Chewing: Impaired Oral Prep Time: WFL A-P Transit: WFL Timing of Swallow: WFL Coughing/Throat Clear: No Change in Voice: No Recommendations - Speech Evaluation, Impression/Plan Impression: Seen lunch time, accepting puree and thin liquid via straw without signs of aspiration. Decubiti, needs increased nutrition, followed by RD- "Continue Ensure Enlive w/ meals, Prosource SF 30 ml BID, daily MVI with minerals" - Dysphagia Impressions/Plan Dysphagia Impressions: Minimal Impairment, Ongoing Evaluation *Silent aspiration: cannot be R/O at bedside - Recommendations Diet Consistency: Dysphagia Pureed Medication Administration: Whole with water (tolerated, per nursing) Liquids: Thin Liquids Supplement: Ensure, Magic Cup, Ensure Pudding
[2019-09-04] MEDS: ACETAMINOPHEN 500 MG TABLET (FP) PO PRN (14:54)
[2019-09-04] MEDS: ACETAMINOPHEN 500 MG TABLET (FP) PO SCH (18:41)
[2019-09-04] MEDS: VANCOMYCIN 1 GRAM (PRE-DOCKED) 1,000 MG/250 ML BAG IVPB SCH (18:42)
--- NOTE | 2019-09-04 19:26 | PN ---
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, Physician History of Present Illness: Pt is alert, without distress. States she feels ok. Remains afebrile. - Current Medication List Current Medications: Active Medications Acetaminophen (Tylenol -) 500 mg PO Q6HPO [facility] Last Admin: 09/04/19 18:41 Dose: 500 mg Documented by: Amino Acids (Prosource No Carb Liquid Pkt) 30 ml PO BID@0800,1730 [facility] Last Admin: 09/04/19 17:42 Dose: 30 ml Documented by: Collagenase (Santyl -) 1 applic TP BID [facility]; Protocol Last Admin: 09/04/19 09:35 Dose: 1 applic Documented by: Enoxaparin Sodium (Lovenox -) 40 mg SQ DAILY [facility] Last Admin: 09/04/19 09:34 Dose: 40 mg Documented by: Potassium Chloride/Dextrose/Sod Cl (D5-1/2ns+20 Meq Kcl -) 20 meq in 1,000 mls @ 42 mls/hr IV ASDIR [facility] Last Admin: 09/04/19 17:04 Dose: Not Given Documented by: Aztreonam 1 gm/ Dextrose 50 mls @ 100 mls/hr IVPB Q8H-IV [facility]; Protocol Last Admin: 09/04/19 17:42 Dose: 100 mls/hr Documented by: Vancomycin HCl (Vancomycin (Pre-Docked)) 1,000 mg in 250 mls @ 200 mls/hr IVPB Q24H [facility]; Protocol Last Admin: 09/04/19 18:42 Dose: 200 mls/hr Documented by: Mirtazapine (Remeron -) 22.5 mg PO HS [facility] Pantoprazole Sodium (Protonix -) 40 mg PO DAILY [facility] Last Admin: 09/04/19 09:34 Dose: 40 mg Documented by: Sodium Hypochlorite (Dakin's Solution 0.5% (Full Strength) -) 1 applic TP DAILY [facility] Last Admin: 09/04/19 09:35 Dose: 1 applic Documented by: - Objective Vital Signs: Vital Signs Temperature 98.5 F 09/04/19 18:00 Pulse Rate 100 H 09/04/19 18:00 Respiratory Rate 20 09/04/19 18:00 Blood Pressure 85/50 L 09/04/19 18:00 O2 Sat by Pulse Oximetry (%) 96 09/04/19 09:00 Constitutional: Yes: Cachectic Eyes: Yes: Conjunctiva Clear Cardiovascular: Yes: Tachycardia Respiratory: Yes: Regular Gastrointestinal: Yes: Normal Bowel Sounds, Soft Wound/Incision: Yes: Other (b/l hip/coccyx dressings intact) Neurological: Yes: Alert Labs: CBC, BMP 09/04/19 08:00 09/04/19 08:00 Laboratory Last Values WBC 7.9 K/mm3 (4.0-10.0) 09/04/19 08:00 RBC 3.77 M/mm3 (3.60-5.2) 09/04/19 08:00 Hgb 10.9 GM/dL (10.7-15.3) 09/04/19 08:00 Hct 33.9 % (32.4-45.2) 09/04/19 08:00 MCV 90.0 fl (80-96) 09/04/19 08:00 MCH 29.0 pg (25.7-33.7) 09/04/19 08:00 MCHC 32.2 g/dl (32.0-36.0) 09/04/19 08:00 RDW 12.7 % (11.6-15.6) 09/04/19 08:00 Plt Count 232 K/MM3 (134-434) 09/04/19 08:00 MPV 8.7 fl (7.5-11.1) 09/04/19 08:00 Absolute Neuts (auto) 6.5 K/mm3 (1.5-8.0) 09/04/19 08:00 Neutrophils % 82.4 % (42.8-82.8) 09/04/19 08:00 Lymphocytes % 8.9 % (8-40) 09/04/19 08:00 Monocytes % 6.8 % (3.8-10.2) 09/04/19 08:00 Eosinophils % 1.6 % (0-4.5) 09/04/19 08:00 Basophils % 0.3 % (0-2.0) 09/04/19 08:00 Nucleated RBC % 0 % (0-0) 09/04/19 08:00 Sodium 137 mmol/L (136-145) 09/04/19 08:00 Potassium 4.1 mmol/L (3.5-5.1) 09/04/19 08:00 Chloride 100 mmol/L (98-107) 09/04/19 08:00 Carbon Dioxide 29 mmol/L (21-32) 09/04/19 08:00 Anion Gap 7 MMOL/L (8-16) L 09/04/19 08:00 BUN 17.1 mg/dL (7-18) 09/04/19 08:00 Creatinine 0.3 mg/dL (0.55-1.3) L 09/04/19 08:00 Est GFR (CKD-EPI)AfAm 117.65 09/04/19 08:00 Est GFR (CKD-EPI)NonAf 101.51 09/04/19 08:00 Random Glucose 119 mg/dL (74-106) H 09/04/19 08:00 Calcium 10.1 mg/dL (8.5-10.1) 09/04/19 08:00 Magnesium 2.4 mg/dL (1.8-2.4) 08/31/19 16:15 Total Bilirubin 0.3 mg/dL (0.2-1) 09/04/19 08:00 AST 10 U/L (15-37) L 09/04/19 08:00 ALT 9 U/L (13-61) L 09/04/19 08:00 Alkaline Phosphatase 72 U/L (45-117) 09/04/19 08:00 Total Protein 5.7 g/dl (6.4-8.2) L 09/04/19 08:00 Albumin 2.1 g/dl (3.4-5.0) L 09/04/19 08:00 Vancomycin Pre-Dose 9.7 ug/ml (5-10) 09/04/19 15:40 COVID-19 ([facility]) Not detected (Not Detected) 08/31/19 16:35 Blood Type O POSITIVE 09/03/19 07:41 Antibody Screen Negative 09/03/19 07:41 Microbiology 08/31/19 16:15 Blood - Peripheral Venous Blood Culture - Preliminary NO GROWTH OBTAINED AFTER 96 HOURS, INCUBATION TO CONTINUE FOR 1 DAYS. 09/02/19 07:20 Blood - Peripheral Venous Blood Culture - Preliminary NO GROWTH OBTAINED AFTER 48 HOURS, INCUBATION TO CONTINUE FOR 3 DAYS. 09/02/19 07:15 Blood - Peripheral Venous Blood Culture - Preliminary NO GROWTH OBTAINED AFTER 48 HOURS, INCUBATION TO CONTINUE FOR 3 DAYS. 08/31/19 16:15 Hip - Left Gram Stain - Final 08/31/19 16:15 Hip - Left Wound Culture - Final Non Lactose Fermenting Gnb Lactose Fermenting Neg Bacilli Group D Strep Or Entero Coccus Bacteroides Thetaiotaomicron 08/31/19 16:15 Coccyx Gram Stain - Final 08/31/19 16:15 Coccyx Wound Culture - Final Escherichia Coli Proteus Mirabilis Enterococcus Faecalis 08/31/19 16:15 Hip - Right Gram Stain - Final 08/31/19 16:15 Hip - Right Wound Culture - Final Non Lactose Fermenting Gnb Lactose Fermenting Neg Bacilli Anaerobic Gram Neg Bacilli Group D Strep Or Entero Coccus 08/31/19 16:35 Blood - Peripheral Venous Blood Culture - Final Escherichia Coli Problem List - Problems (1) Bacteremia due to Gram-negative bacteria Code(s): R78.81 - BACTEREMIA (2) Decubitus ulcers Code(s): L89.90 - PRESSURE ULCER OF UNSPECIFIED SITE, UNSPECIFIED STAGE (3) Leukocytosis Code(s): D72.829 - ELEVATED WHITE BLOOD CELL COUNT, UNSPECIFIED (4) Anemia Code(s): D64.9 - ANEMIA, UNSPECIFIED Qualifiers: Anemia type: iron deficiency Iron deficiency anemia type: unspecified iron deficiency Qualified Code(s): D50.9 - Iron deficiency anemia, unspecified (5) Dementia Code(s): F03.90 - UNSPECIFIED DEMENTIA WITHOUT BEHAVIORAL DISTURBANCE (6) History of colon cancer Code(s): Z85.038 - PERSONAL HISTORY OF MALIGNANT NEOPLASM OF LARGE INTESTINE Assessment/Plan -- continue Current antibiotics -- wound cultures noted -- pt is afebrile/wbc normal -- Vancomycin trough noted (9) , repeat trough ordered - if remains subthera peutic will increase dose -- continue dressing changes, frequent turning
[2019-09-04] MEDS: MIRTAZAPINE 15 MG TABLET (FP) PO SCH (21:29)
[2019-09-05] MEDS: ACETAMINOPHEN 500 MG TABLET (FP) PO SCH ×2 (00:54→06:07)
[2019-09-05] MEDS: AZTREONAM 1 GM in DEXTROSE 5%-WATER - 50 ML IVPB SCH ×3 (01:51→18:53)
--- NOTE | 2019-09-05 08:29 | PN ---
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, Physician Chief Complaint: Patient seen and examined at the bedside, no acute events from last night, afebrile, low back pain. History of Present Illness: This 88 yr old w/f with PMH of HTN, colon cancer, s/p colon resection, dementia admitted via ER with an acutely infected multiple decubiti of the left buttock, hips, and sacrum and an acute E. Coli bacteremia, and sepsis. - Current Medication List Current Medications: Active Medications Acetaminophen (Tylenol -) 500 mg PO Q6HPO [facility] Last Admin: 09/05/19 06:07 Dose: 500 mg Documented by: Amino Acids (Prosource No Carb Liquid Pkt) 30 ml PO BID@0800,1730 [facility] Last Admin: 09/04/19 17:42 Dose: 30 ml Documented by: Collagenase (Santyl -) 1 applic TP BID [facility]; Protocol Last Admin: 09/04/19 21:30 Dose: 1 applic Documented by: Enoxaparin Sodium (Lovenox -) 40 mg SQ DAILY [facility] Last Admin: 09/04/19 09:34 Dose: 40 mg Documented by: Potassium Chloride/Dextrose/Sod Cl (D5-1/2ns+20 Meq Kcl -) 20 meq in 1,000 mls @ 42 mls/hr IV ASDIR [facility] Last Admin: 09/04/19 17:04 Dose: Not Given Documented by: Aztreonam 1 gm/ Dextrose 50 mls @ 100 mls/hr IVPB Q8H-IV [facility]; Protocol Last Admin: 09/05/19 01:51 Dose: 100 mls/hr Documented by: Vancomycin HCl (Vancomycin (Pre-Docked)) 1,000 mg in 250 mls @ 200 mls/hr IVPB Q24H [facility]; Protocol Last Admin: 09/04/19 18:42 Dose: 200 mls/hr Documented by: Mirtazapine (Remeron -) 22.5 mg PO HS [facility] Last Admin: 09/04/19 21:29 Dose: 22.5 mg Documented by: Pantoprazole Sodium (Protonix -) 40 mg PO DAILY [facility] Last Admin: 09/04/19 09:34 Dose: 40 mg Documented by: Sodium Hypochlorite (Dakin's Solution 0.5% (Full Strength) -) 1 applic TP DAILY [facility] Last Admin: 09/04/19 09:35 Dose: 1 applic Documented by: - Objective Vital Signs: Vital Signs Temperature 98.2 F 09/05/19 06:00 Pulse Rate 101 H 09/05/19 06:00 Respiratory Rate 16 09/05/19 06:00 Blood Pressure 99/46 L 09/05/19 06:00 O2 Sat by Pulse Oximetry (%) 96 09/04/19 21:00 Constitutional: Yes: No Distress, Calm, Cachectic, Thin Eyes: Yes: Conjunctiva Clear, EOM Intact HENT: Yes: Atraumatic, Normocephalic Neck: Yes: Supple, Trachea Midline Cardiovascular: Yes: Regular Rate and Rhythm Respiratory: Yes: Regular, CTA Bilaterally Gastrointestinal: Yes: Normal Bowel Sounds, Soft ...Rectal Exam: Yes: Deferred Genitourinary: Yes: Kohli Present Breast(s): Yes: WNL Musculoskeletal: Yes: Muscle Weakness Extremities: Yes: WNL Edema: No Peripheral Pulses WNL: Yes Integumentary: Yes: Pressure Ulcer (left buttock, hips and sacrum) Neurological: Yes: Alert, Unsteady Gait, Weakness ...Motor Strength: LUE (generalized muscle weakness of all extremities) Psychiatric: Yes: Alert Labs: CBC, BMP 09/04/19 08:00 09/04/19 08:00 - ....Imaging Other: Report Reviewed (lab data reviewed) Problem List - Problems (1) Decubitus ulcers Code(s): L89.90 - PRESSURE ULCER OF UNSPECIFIED SITE, UNSPECIFIED STAGE (2) Anemia Code(s): D64.9 - ANEMIA, UNSPECIFIED Qualifiers: Anemia type: iron deficiency Iron deficiency anemia type: unspecified iron deficiency Qualified Code(s): D50.9 - Iron deficiency anemia, unspecified (3) Constipation Code(s): K59.00 - CONSTIPATION, UNSPECIFIED (4) Dementia Code(s): F03.90 - UNSPECIFIED DEMENTIA WITHOUT BEHAVIORAL DISTURBANCE (5) Fracture of pubic ramus Code(s): S32.599A - OTH FRACTURE OF UNSP PUBIS, INIT ENCNTR FOR CLOSED FRACTURE (6) History of colon cancer Code(s): Z85.038 - PERSONAL HISTORY OF MALIGNANT NEOPLASM OF LARGE INTESTINE (7) Inability to ambulate due to hip Code(s): R26.2 - DIFFICULTY IN WALKING, NOT ELSEWHERE CLASSIFIED (8) Intertrochanteric fracture of right hip Code(s): S72.141A - DISPLACED INTERTROCHANTERIC FRACTURE OF RIGHT FEMUR, INIT (9) Small bowel obstruction Code(s): K56.609 - UNSP INTESTNL OBST, UNSP TO PARTIAL VERSUS COMPLETE OBST (10) Syncope and collapse Code(s): R55 - SYNCOPE AND COLLAPSE (11) Bacteremia due to Gram-negative bacteria Code(s): R78.81 - BACTEREMIA (12) Leukocytosis Code(s): D72.829 - ELEVATED WHITE BLOOD CELL COUNT, UNSPECIFIED Assessment/Plan Assessment/plan: acutely infected (E.coli, proteus mirabilis, enterobacter) multiple decubiti of the left buttock, hips, and sacrum, acute E. Coli bacteremia, acute sepsis, cachexia, HTN, colon cancer, s/p colon resection, dementia; IV Aztreonam and Vancomycin as per ID, DVT/GI prophylaxis, Mirtazapine for insomnia, Tylenol for low back pain, topical Collagenase, amino acids, and physical therapy.
[2019-09-05] MEDS: ACETAMINOPHEN 650 MG/20.3 ML ORAL SOLUTION (CUPS) PO SCH ×4 (09:08→21:05)
[2019-09-05] MEDS: PANTOPRAZOLE 40 MG TABLET PO SCH (09:08)
[2019-09-05] MEDS: AMINO ACIDS/PROTEIN HYDROLYS 30 ML LIQUID.PKT PO SCH ×2 (09:08→18:53)
[2019-09-05] MEDS: ENOXAPARIN NA (PORCINE) 40 MG/0.4 ML DISP.SYRIN SQ SCH (09:08)
[2019-09-05] MEDS: SODIUM HYPOCHLORITE 0.5% 473 ML- BULK BOTTLE TP SCH (09:09)
[2019-09-05] MEDS: COLLAGENASE CLOSTRIDIUM HIST. 30 GRAMS TUBE TP SCH ×2 (09:10→22:38)
[2019-09-05 09:48] LABS: BASO % 0.3 % (0-2.0); EOS % 2.2 % (0-4.5); HEMATOCRIT 35.1 % (32.4-45.2); HEMOGLOBIN 11.3 GM/dL (10.7-15.3); MCH 29.2 pg (25.7-33.7); MCHC 32.2 g/dl (32.0-36.0); MEAN CELL VOLUME 90.7 fl (80-96); MONO % 6.9 % (3.8-10.2); NEUT % 81.6 % (42.8-82.8); PLATELET COUNT 218 K/MM3 (134-434); RBC 3.87 M/mm3 (3.60-5.2); RDW 12.6 % (11.6-15.6); WHITE BLOOD COUNT 7.7 K/mm3 (4.0-10.0)
[2019-09-05 10:20] LABS: ALBUMIN 2.1 g/dl (3.4-5.0); BILIRUBIN,TOTAL 0.3 mg/dL (0.2-1); BLOOD UREA NITROGEN 14.1 mg/dL (7-18); CALCIUM 10.1 mg/dL (8.5-10.1); CREATININE 0.3 mg/dL (0.55-1.3); POTASSIUM 4.2 mmol/L (3.5-5.1); TOT PROT 5.7 g/dl (6.4-8.2)
[2019-09-05] MEDS: D5-1/2NS+20 MEQ KCL - 20 MEQ/1,000 ML INFUS.BAG IV SCH ×2 (13:03→16:45)
--- NOTE | 2019-09-05 15:45 | PN ---
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, Physician History of Present Illness: Pt without distress, remains afebrile. - Current Medication List Current Medications: Active Medications Acetaminophen (Tylenol Oral Solution -) 650 mg PO Q6H [facility] Last Admin: 09/05/19 15:20 Dose: 650 mg Documented by: Amino Acids (Prosource No Carb Liquid Pkt) 30 ml PO BID@0800,1730 [facility] Last Admin: 09/05/19 09:08 Dose: 30 ml Documented by: Collagenase (Santyl -) 1 applic TP BID [facility]; Protocol Last Admin: 09/05/19 09:10 Dose: 1 applic Documented by: Enoxaparin Sodium (Lovenox -) 40 mg SQ DAILY [facility] Last Admin: 09/05/19 09:08 Dose: 40 mg Documented by: Potassium Chloride/Dextrose/Sod Cl (D5-1/2ns+20 Meq Kcl -) 20 meq in 1,000 mls @ 42 mls/hr IV ASDIR [facility] Last Admin: 09/05/19 13:03 Dose: 42 mls/hr Documented by: Aztreonam 1 gm/ Dextrose 50 mls @ 100 mls/hr IVPB Q8H-IV [facility]; Protocol Last Admin: 09/05/19 11:05 Dose: 100 mls/hr Documented by: Vancomycin HCl (Vancomycin (Pre-Docked)) 1,000 mg in 250 mls @ 200 mls/hr IVPB Q24H [facility]; Protocol Last Admin: 09/04/19 18:42 Dose: 200 mls/hr Documented by: Mirtazapine (Remeron -) 22.5 mg PO HS [facility] Last Admin: 09/04/19 21:29 Dose: 22.5 mg Documented by: Pantoprazole Sodium (Protonix -) 40 mg PO DAILY [facility] Last Admin: 09/05/19 09:08 Dose: 40 mg Documented by: Sodium Hypochlorite (Dakin's Solution 0.5% (Full Strength) -) 1 applic TP DAILY [facility] Last Admin: 09/05/19 09:09 Dose: 1 applic Documented by: - Objective Vital Signs: Vital Signs Temperature 97.8 F 09/05/19 14:00 Pulse Rate 102 H 09/05/19 14:00 Respiratory Rate 18 09/05/19 14:00 Blood Pressure 112/58 L 09/05/19 14:00 O2 Sat by Pulse Oximetry (%) 96 09/05/19 09:00 Constitutional: Yes: No Distress Cardiovascular: Yes: Tachycardia Respiratory: Yes: Regular Gastrointestinal: Yes: Normal Bowel Sounds, Soft Genitourinary: Yes: WNL Extremities: Yes: WNL Integumentary: Yes: Pressure Ulcer (b/l hip, coccyx) Wound/Incision: Yes: Dressing Dry and Intact Neurological: Yes: Alert, Confusion Labs: CBC, BMP 09/05/19 08:20 09/05/19 08:20 Laboratory Last Values WBC 7.7 K/mm3 (4.0-10.0) 09/05/19 08:20 RBC 3.87 M/mm3 (3.60-5.2) 09/05/19 08:20 Hgb 11.3 GM/dL (10.7-15.3) 09/05/19 08:20 Hct 35.1 % (32.4-45.2) 09/05/19 08:20 MCV 90.7 fl (80-96) 09/05/19 08:20 MCH 29.2 pg (25.7-33.7) 09/05/19 08:20 MCHC 32.2 g/dl (32.0-36.0) 09/05/19 08:20 RDW 12.6 % (11.6-15.6) 09/05/19 08:20 Plt Count 218 K/MM3 (134-434) 09/05/19 08:20 MPV 9.0 fl (7.5-11.1) 09/05/19 08:20 Absolute Neuts (auto) 6.3 K/mm3 (1.5-8.0) 09/05/19 08:20 Neutrophils % 81.6 % (42.8-82.8) 09/05/19 08:20 Lymphocytes % 9.0 % (8-40) 09/05/19 08:20 Monocytes % 6.9 % (3.8-10.2) 09/05/19 08:20 Eosinophils % 2.2 % (0-4.5) 09/05/19 08:20 Basophils % 0.3 % (0-2.0) 09/05/19 08:20 Nucleated RBC % 0 % (0-0) 09/05/19 08:20 Sodium 139 mmol/L (136-145) 07/04/20 08:20 Potassium 4.2 mmol/L (3.5-5.1) 09/05/19 08:20 Chloride 101 mmol/L (98-107) 09/05/19 08:20 Carbon Dioxide 31 mmol/L (21-32) 09/05/19 08:20 Anion Gap 7 MMOL/L (8-16) L 09/05/19 08:20 BUN 14.1 mg/dL (7-18) 09/05/19 08:20 Creatinine 0.3 mg/dL (0.55-1.3) L 09/05/19 08:20 Est GFR (CKD-EPI)AfAm 117.65 09/05/19 08:20 Est GFR (CKD-EPI)NonAf 101.51 09/05/19 08:20 Random Glucose 104 mg/dL (74-106) 09/05/19 08:20 Calcium 10.1 mg/dL (8.5-10.1) 09/05/19 08:20 Magnesium 2.4 mg/dL (1.8-2.4) 08/31/19 16:15 Total Bilirubin 0.3 mg/dL (0.2-1) 09/05/19 08:20 AST 14 U/L (15-37) L 09/05/19 08:20 ALT 9 U/L (13-61) L 09/05/19 08:20 Alkaline Phosphatase 68 U/L (45-117) 09/05/19 08:20 Total Protein 5.7 g/dl (6.4-8.2) L 09/05/19 08:20 Albumin 2.1 g/dl (3.4-5.0) L 09/05/19 08:20 Vancomycin Pre-Dose 9.7 ug/ml (5-10) 09/04/19 15:40 COVID-19 ([facility]) Not detected (Not Detected) 08/31/19 16:35 Blood Type O POSITIVE 09/03/19 07:41 Antibody Screen Negative 09/03/19 07:41 Microbiology 09/02/19 07:20 Blood - Peripheral Venous Blood Culture - Preliminary NO GROWTH OBTAINED AFTER 72 HOURS, INCUBATION TO CONTINUE FOR 2 DAYS. 09/02/19 07:15 Blood - Peripheral Venous Blood Culture - Preliminary NO GROWTH OBTAINED AFTER 72 HOURS, INCUBATION TO CONTINUE FOR 2 DAYS. 08/31/19 16:15 Blood - Peripheral Venous Blood Culture - Preliminary NO GROWTH OBTAINED AFTER 96 HOURS, INCUBATION TO CONTINUE FOR 1 DAYS. 08/31/19 16:15 Hip - Left Gram Stain - Final 08/31/19 16:15 Hip - Left Wound Culture - Final Non Lactose Fermenting Gnb Lactose Fermenting Neg Bacilli Group D Strep Or Entero Coccus Bacteroides Thetaiotaomicron 08/31/19 16:15 Coccyx Gram Stain - Final 08/31/19 16:15 Coccyx Wound Culture - Final Escherichia Coli Proteus Mirabilis Enterococcus Faecalis 08/31/19 16:15 Hip - Right Gram Stain - Final 08/31/19 16:15 Hip - Right Wound Culture - Final Non Lactose Fermenting Gnb Lactose Fermenting Neg Bacilli Anaerobic Gram Neg Bacilli Group D Strep Or Entero Coccus 08/31/19 16:35 Blood - Peripheral Venous Blood Culture - Final Escherichia Coli Problem List - Problems (1) Bacteremia due to Gram-negative bacteria Code(s): R78.81 - BACTEREMIA (2) Decubitus ulcers Code(s): L89.90 - PRESSURE ULCER OF UNSPECIFIED SITE, UNSPECIFIED STAGE (3) Leukocytosis Code(s): D72.829 - ELEVATED WHITE BLOOD CELL COUNT, UNSPECIFIED (4) Anemia Code(s): D64.9 - ANEMIA, UNSPECIFIED Qualifiers: Anemia type: iron deficiency Iron deficiency anemia type: unspecified iron deficiency Qualified Code(s): D50.9 - Iron deficiency anemia, unspecified (5) Dementia Code(s): F03.90 - UNSPECIFIED DEMENTIA WITHOUT BEHAVIORAL DISTURBANCE (6) History of colon cancer Code(s): Z85.038 - PERSONAL HISTORY OF MALIGNANT NEOPLASM OF LARGE INTESTINE Assessment/Plan -- continue current antibiotics -- wound cultures noted -- pt is afebrile/wbc normal -- Vancomycin trough yesterday noted (9) , repeat trough pending for today - if remains subtherapeutic will increase dose -- continue dressing changes, frequent turning
[2019-09-05] MEDS: VANCOMYCIN 1 GRAM (PRE-DOCKED) 1,000 MG/250 ML BAG IVPB SCH (16:31)
[2019-09-05] MEDS: MIRTAZAPINE 15 MG TABLET (FP) PO SCH ×2 (21:58→22:06)
[2019-09-06] MEDS: AZTREONAM 1 GM in DEXTROSE 5%-WATER - 50 ML IVPB SCH ×3 (02:28→17:21)
[2019-09-06] MEDS: ACETAMINOPHEN 650 MG/20.3 ML ORAL SOLUTION (CUPS) PO SCH ×4 (02:29→20:47)
--- NOTE | 2019-09-06 08:14 | PN ---
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, Physician Chief Complaint: Patient seen and examined at the bedside, no acute events from last night, afebrile. History of Present Illness: This 88 yr old w/f with PMH of HTN, colon cancer, s/p colon resection, dementia admitted via ER with an acutely infected multiple decubiti of the left buttock, hips, and sacrum, sepsis, and an E. Coli bacteremia. - Current Medication List Current Medications: Active Medications Acetaminophen (Tylenol Oral Solution -) 650 mg PO Q6H [facility] Last Admin: 09/06/19 02:29 Dose: 650 mg Documented by: Amino Acids (Prosource No Carb Liquid Pkt) 30 ml PO BID@0800,1730 [facility] Last Admin: 09/05/19 18:53 Dose: 30 ml Documented by: Collagenase (Santyl -) 1 applic TP BID [facility]; Protocol Last Admin: 09/05/19 22:38 Dose: 1 applic Documented by: Enoxaparin Sodium (Lovenox -) 40 mg SQ DAILY [facility] Last Admin: 09/05/19 09:08 Dose: 40 mg Documented by: Potassium Chloride/Dextrose/Sod Cl (D5-1/2ns+20 Meq Kcl -) 20 meq in 1,000 mls @ 42 mls/hr IV ASDIR [facility] Last Admin: 09/05/19 16:45 Dose: Not Given Documented by: Aztreonam 1 gm/ Dextrose 50 mls @ 100 mls/hr IVPB Q8H-IV [facility]; Protocol Last Admin: 09/06/19 02:28 Dose: 100 mls/hr Documented by: Vancomycin HCl (Vancomycin (Pre-Docked)) 1,000 mg in 250 mls @ 200 mls/hr IVPB Q24H [facility]; Protocol Last Admin: 09/05/19 16:31 Dose: 200 mls/hr Documented by: Mirtazapine (Remeron -) 22.5 mg PO HS [facility] Last Admin: 09/05/19 22:06 Dose: Not Given Documented by: Pantoprazole Sodium (Protonix -) 40 mg PO DAILY [facility] Last Admin: 09/05/19 09:08 Dose: 40 mg Documented by: Sodium Hypochlorite (Dakin's Solution 0.5% (Full Strength) -) 1 applic TP DAILY [facility] Last Admin: 09/05/19 09:09 Dose: 1 applic Documented by: - Objective Vital Signs: Vital Signs Temperature 98.6 F 09/06/19 06:00 Pulse Rate 98 H 09/06/19 06:00 Respiratory Rate 18 09/06/19 06:00 Blood Pressure 110/59 L 09/06/19 06:00 O2 Sat by Pulse Oximetry (%) 96 09/05/19 21:00 Constitutional: Yes: No Distress, Calm, Cachectic, Thin Eyes: Yes: Conjunctiva Clear, EOM Intact HENT: Yes: Atraumatic, Normocephalic Neck: Yes: Supple, Trachea Midline Cardiovascular: Yes: Regular Rate and Rhythm Respiratory: Yes: Regular, CTA Bilaterally Gastrointestinal: Yes: Normal Bowel Sounds, Soft ...Rectal Exam: Yes: Deferred Genitourinary: Yes: Kohil Present Breast(s): Yes: WNL Musculoskeletal: Yes: Muscle Weakness Extremities: Yes: WNL Edema: No Peripheral Pulses WNL: Yes Integumentary: Yes: Pressure Ulcer (left buttock, hips and sacrum) Neurological: Yes: Alert, Confusion, Unsteady Gait, Weakness ...Motor Strength: LUE (generalized muscle weakness of all extremities) Psychiatric: Yes: Alert - ....Imaging Other: Report Reviewed (lab data reviewed) Problem List - Problems (1) Decubitus ulcers Code(s): L89.90 - PRESSURE ULCER OF UNSPECIFIED SITE, UNSPECIFIED STAGE (2) Anemia Code(s): D64.9 - ANEMIA, UNSPECIFIED Qualifiers: Anemia type: iron deficiency Iron deficiency anemia type: unspecified iron deficiency Qualified Code(s): D50.9 - Iron deficiency anemia, unspecified (3) Constipation Code(s): K59.00 - CONSTIPATION, UNSPECIFIED (4) Dementia Code(s): F03.90 - UNSPECIFIED DEMENTIA WITHOUT BEHAVIORAL DISTURBANCE (5) Fracture of pubic ramus Code(s): S32.599A - OTH FRACTURE OF UNSP PUBIS, INIT ENCNTR FOR CLOSED FRACTURE (6) History of colon cancer Code(s): Z85.038 - PERSONAL HISTORY OF MALIGNANT NEOPLASM OF LARGE INTESTINE (7) Inability to ambulate due to hip Code(s): R26.2 - DIFFICULTY IN WALKING, NOT ELSEWHERE CLASSIFIED (8) Intertrochanteric fracture of right hip Code(s): S72.141A - DISPLACED INTERTROCHANTERIC FRACTURE OF RIGHT FEMUR, INIT (9) Small bowel obstruction Code(s): K56.609 - UNSP INTESTNL OBST, UNSP TO PARTIAL VERSUS COMPLETE OBST (10) Syncope and collapse Code(s): R55 - SYNCOPE AND COLLAPSE (11) Bacteremia due to Gram-negative bacteria Code(s): R78.81 - BACTEREMIA (12) Leukocytosis Code(s): D72.829 - ELEVATED WHITE BLOOD CELL COUNT, UNSPECIFIED Assessment/Plan Assessment/plan: acutely infected multiple decubiti of the left buttock hips and sacrum, sepsis, acute E. Coli bacteremia, cachexia, HTN, colon cancer, s/p colon resection, dementia; IV Aztreonam and Vancomycin as per ID, DVT/GI prophylaxis, physical therapy, amino acids, topical Collagenase, tylenol for low back pain, mirtazapine for insomnia, frequent change of body position.
[2019-09-06 08:18] LABS: BASO % 0.5 % (0-2.0); EOS % 2.4 % (0-4.5); HEMATOCRIT 33.8 % (32.4-45.2); HEMOGLOBIN 11.1 GM/dL (10.7-15.3); LYMPH % 8.6 % (8-40); MCH 29.6 pg (25.7-33.7); MCHC 32.8 g/dl (32.0-36.0); MEAN CELL VOLUME 90.1 fl (80-96); MEAN PLT VOLUME 8.8 fl (7.5-11.1); MONO % 5.7 % (3.8-10.2); NEUT % 82.8 % (42.8-82.8); PLATELET COUNT 243 K/MM3 (134-434); RBC 3.75 M/mm3 (3.60-5.2); RDW 12.8 % (11.6-15.6); WHITE BLOOD COUNT 9.4 K/mm3 (4.0-10.0)
[2019-09-06 08:28] LABS: BILIRUBIN,TOTAL 0.2 mg/dL (0.2-1); BLOOD UREA NITROGEN 18.9 mg/dL (7-18); CALCIUM 9.7 mg/dL (8.5-10.1); CREATININE 0.3 mg/dL (0.55-1.3); POTASSIUM 4.1 mmol/L (3.5-5.1); TOT PROT 5.7 g/dl (6.4-8.2)
[2019-09-06] MEDS: PANTOPRAZOLE 40 MG TABLET PO SCH (09:41)
[2019-09-06] MEDS: AMINO ACIDS/PROTEIN HYDROLYS 30 ML LIQUID.PKT PO SCH ×2 (09:41→17:21)
[2019-09-06] MEDS: ENOXAPARIN NA (PORCINE) 40 MG/0.4 ML DISP.SYRIN SQ SCH (09:41)
[2019-09-06] MEDS: SODIUM HYPOCHLORITE 0.5% 473 ML- BULK BOTTLE TP SCH (09:46)
[2019-09-06] MEDS: COLLAGENASE CLOSTRIDIUM HIST. 30 GRAMS TUBE TP SCH ×2 (09:46→21:40)
[2019-09-06 12:32] LABS: BASO % 0.5 % (0-2.0); EOS % 1.8 % (0-4.5); HEMOGLOBIN 10.7 GM/dL (10.7-15.3); LYMPH % 8.7 % (8-40); MCH 29.1 pg (25.7-33.7); MCHC 32.4 g/dl (32.0-36.0); MEAN CELL VOLUME 89.8 fl (80-96); MEAN PLT VOLUME 8.5 fl (7.5-11.1); MONO % 5.9 % (3.8-10.2); NEUT % 83.1 % (42.8-82.8); PLATELET COUNT 253 K/MM3 (134-434); RBC 3.68 M/mm3 (3.60-5.2); RDW 12.7 % (11.6-15.6)
[2019-09-06] MEDS: VANCOMYCIN 750 MG in DEXTROSE 5%-WATER - 250 ML IVPB SCH (16:13)
[2019-09-06] MEDS: D5-1/2NS+20 MEQ KCL - 20 MEQ/1,000 ML INFUS.BAG IV SCH (16:21)
--- NOTE | 2019-09-06 17:30 | PN ---
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, Physician History of Present Illness: Pt is alert and comfortable, afebrile. - Current Medication List Current Medications: Active Medications Acetaminophen (Tylenol Oral Solution -) 650 mg PO Q6H [facility] Last Admin: 09/06/19 13:42 Dose: 650 mg Documented by: Amino Acids (Prosource No Carb Liquid Pkt) 30 ml PO BID@0800,1730 [facility] Last Admin: 09/06/19 17:21 Dose: 30 ml Documented by: Collagenase (Santyl -) 1 applic TP BID [facility]; Protocol Last Admin: 09/06/19 09:46 Dose: 1 applic Documented by: Enoxaparin Sodium (Lovenox -) 40 mg SQ DAILY [facility] Last Admin: 09/06/19 09:41 Dose: 40 mg Documented by: Potassium Chloride/Dextrose/Sod Cl (D5-1/2ns+20 Meq Kcl -) 20 meq in 1,000 mls @ 42 mls/hr IV ASDIR [facility] Last Admin: 09/06/19 16:21 Dose: 42 mls/hr Documented by: Aztreonam 1 gm/ Dextrose 50 mls @ 100 mls/hr IVPB Q8H-IV [facility]; Protocol Last Admin: 09/06/19 17:21 Dose: 100 mls/hr Documented by: Vancomycin HCl 750 mg/ (Dextrose) 250 mls @ 166.667 mls/hr IVPB Q12H [facility]; Protocol Last Admin: 09/06/19 16:13 Dose: 166.667 mls/hr Documented by: Mirtazapine (Remeron -) 22.5 mg PO HS [facility] Last Admin: 09/05/19 22:06 Dose: Not Given Documented by: Pantoprazole Sodium (Protonix -) 40 mg PO DAILY [facility] Last Admin: 09/06/19 09:41 Dose: 40 mg Documented by: Sodium Hypochlorite (Dakin's Solution 0.5% (Full Strength) -) 1 applic TP DAILY [facility] Last Admin: 09/06/19 09:46 Dose: 1 applic Documented by: - Objective Vital Signs: Vital Signs Temperature 97.6 F 09/06/19 14:00 Pulse Rate 101 H 09/06/19 14:00 Respiratory Rate 18 09/06/19 14:00 Blood Pressure 115/58 L 09/06/19 14:00 O2 Sat by Pulse Oximetry (%) 99 09/06/19 09:00 Constitutional: Yes: No Distress, Calm, Cachectic Cardiovascular: Yes: Regular Rate and Rhythm Respiratory: Yes: Regular Gastrointestinal: Yes: Normal Bowel Sounds, Soft Genitourinary: Yes: WNL Integumentary: Yes: Pressure Ulcer (Sacral, b/l hip St IV DUs with dressing intact) Wound/Incision: Yes: Dressing Dry and Intact Neurological: Yes: Alert, Confusion Labs: CBC, BMP 09/06/19 12:00 09/06/19 07:48 Microbiology 09/02/19 07:20 Blood - Peripheral Venous Blood Culture - Preliminary NO GROWTH OBTAINED AFTER 96 HOURS, INCUBATION TO CONTINUE FOR 1 DAYS. 09/02/19 07:15 Blood - Peripheral Venous Blood Culture - Preliminary NO GROWTH OBTAINED AFTER 96 HOURS, INCUBATION TO CONTINUE FOR 1 DAYS. 08/31/19 16:15 Blood - Peripheral Venous Blood Culture - Final NO GROWTH AFTER 5 DAYS INCUBATION 08/31/19 16:15 Hip - Left Gram Stain - Final 08/31/19 16:15 Hip - Left Wound Culture - Final Non Lactose Fermenting Gnb Lactose Fermenting Neg Bacilli Group D Strep Or Entero Coccus Bacteroides Thetaiotaomicron 08/31/19 16:15 Coccyx Gram Stain - Final 08/31/19 16:15 Coccyx Wound Culture - Final Escherichia Coli Proteus Mirabilis Enterococcus Faecalis 08/31/19 16:15 Hip - Right Gram Stain - Final 08/31/19 16:15 Hip - Right Wound Culture - Final Non Lactose Fermenting Gnb Lactose Fermenting Neg Bacilli Anaerobic Gram Neg Bacilli Group D Strep Or Entero Coccus 08/31/19 16:35 Blood - Peripheral Venous Blood Culture - Final Escherichia Coli Problem List - Problems (1) Bacteremia due to Gram-negative bacteria Code(s): R78.81 - BACTEREMIA (2) Decubitus ulcers Code(s): L89.90 - PRESSURE ULCER OF UNSPECIFIED SITE, UNSPECIFIED STAGE (3) Leukocytosis Code(s): D72.829 - ELEVATED WHITE BLOOD CELL COUNT, UNSPECIFIED (4) Anemia Code(s): D64.9 - ANEMIA, UNSPECIFIED Qualifiers: Anemia type: iron deficiency Iron deficiency anemia type: unspecified iron deficiency Qualified Code(s): D50.9 - Iron deficiency anemia, unspecified (5) Dementia Code(s): F03.90 - UNSPECIFIED DEMENTIA WITHOUT BEHAVIORAL DISTURBANCE (6) History of colon cancer Code(s): Z85.038 - PERSONAL HISTORY OF MALIGNANT NEOPLASM OF LARGE INTESTINE Assessment/Plan -- continue current antibiotics -- Vancomycin trough noted, is subtherapeutic. Increased to Vancomycin 750 mg IV BID. Close monitoring of renal function, repeat trough prior to 4th dose -- pt is afebrile/wbc normal -- continue dressing changes, frequent turning
[2019-09-06] MEDS: MIRTAZAPINE 15 MG TABLET (FP) PO SCH (21:40)
[2019-09-07] MEDS: AZTREONAM 1 GM in DEXTROSE 5%-WATER - 50 ML IVPB SCH ×3 (01:18→18:29)
[2019-09-07] MEDS: ACETAMINOPHEN 650 MG/20.3 ML ORAL SOLUTION (CUPS) PO SCH ×4 (03:00→21:17)
[2019-09-07] MEDS: VANCOMYCIN 750 MG in DEXTROSE 5%-WATER - 250 ML IVPB SCH ×2 (03:13→15:37)
--- NOTE | 2019-09-07 08:35 | PN ---
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, Physician Chief Complaint: Patient seen and examined at the bedside, no acute events from last night, afebrile, no labored breathing. History of Present Illness: This 88 yr old w/f with PMH of HTN, colon cancer, s/p colon resection, and dementia admitted via ER with an acutely infected multiple decubiti of the left buttock, hips and sacrum, sepsis, and an E. Coli bacteremia. - Current Medication List Current Medications: Active Medications Acetaminophen (Tylenol Oral Solution -) 650 mg PO Q6H [facility] Last Admin: 09/07/19 03:00 Dose: Not Given Documented by: Amino Acids (Prosource No Carb Liquid Pkt) 30 ml PO BID@0800,1730 [facility] Last Admin: 09/06/19 17:21 Dose: 30 ml Documented by: Collagenase (Santyl -) 1 applic TP BID [facility]; Protocol Last Admin: 09/06/19 21:40 Dose: 1 applic Documented by: Enoxaparin Sodium (Lovenox -) 40 mg SQ DAILY [facility] Last Admin: 09/06/19 09:41 Dose: 40 mg Documented by: Potassium Chloride/Dextrose/Sod Cl (D5-1/2ns+20 Meq Kcl -) 20 meq in 1,000 mls @ 42 mls/hr IV ASDIR [facility] Last Admin: 09/06/19 16:21 Dose: 42 mls/hr Documented by: Aztreonam 1 gm/ Dextrose 50 mls @ 100 mls/hr IVPB Q8H-IV [facility]; Protocol Last Admin: 09/07/19 01:18 Dose: 100 mls/hr Documented by: Vancomycin HCl 750 mg/ (Dextrose) 250 mls @ 166.667 mls/hr IVPB Q12H [facility]; Protocol Last Admin: 09/07/19 03:13 Dose: 166.667 mls/hr Documented by: Mirtazapine (Remeron -) 22.5 mg PO HS [facility] Last Admin: 09/06/19 21:40 Dose: 22.5 mg Documented by: Pantoprazole Sodium (Protonix -) 40 mg PO DAILY [facility] Last Admin: 09/06/19 09:41 Dose: 40 mg Documented by: Sodium Hypochlorite (Dakin's Solution 0.5% (Full Strength) -) 1 applic TP DAILY [facility] Last Admin: 09/06/19 09:46 Dose: 1 applic Documented by: - Objective Vital Signs: Vital Signs Temperature 98.2 F 09/07/19 05:03 Pulse Rate 91 H 09/07/19 05:03 Respiratory Rate 20 09/07/19 05:03 Blood Pressure 100/55 L 09/07/19 05:03 O2 Sat by Pulse Oximetry (%) 97 09/06/19 21:00 Constitutional: Yes: No Distress, Calm, Cachectic, Thin Eyes: Yes: Conjunctiva Clear, EOM Intact HENT: Yes: Atraumatic, Normocephalic Neck: Yes: Supple, Trachea Midline Cardiovascular: Yes: Regular Rate and Rhythm Respiratory: Yes: Regular, CTA Bilaterally Gastrointestinal: Yes: Normal Bowel Sounds, Soft ...Rectal Exam: Yes: Deferred Genitourinary: Yes: Kohli Present Breast(s): Yes: WNL Musculoskeletal: Yes: Muscle Weakness Extremities: Yes: WNL Edema: No Peripheral Pulses WNL: Yes Integumentary: Yes: Pressure Ulcer (left buttock, hips and sacrum) Neurological: Yes: Alert, Confusion, Unsteady Gait, Weakness ...Motor Strength: LUE (generalized muscle weakness of all extremities) Psychiatric: Yes: Alert Labs: CBC, BMP 09/06/19 12:00 09/06/19 07:48 - ....Imaging Other: Report Reviewed (lab data reviewed) Problem List - Problems (1) Decubitus ulcers Code(s): L89.90 - PRESSURE ULCER OF UNSPECIFIED SITE, UNSPECIFIED STAGE (2) Anemia Code(s): D64.9 - ANEMIA, UNSPECIFIED Qualifiers: Anemia type: iron deficiency Iron deficiency anemia type: unspecified iron deficiency Qualified Code(s): D50.9 - Iron deficiency anemia, unspecified (3) Constipation Code(s): K59.00 - CONSTIPATION, UNSPECIFIED (4) Dementia Code(s): F03.90 - UNSPECIFIED DEMENTIA WITHOUT BEHAVIORAL DISTURBANCE (5) Fracture of pubic ramus Code(s): S32.599A - OTH FRACTURE OF UNSP PUBIS, INIT ENCNTR FOR CLOSED FRACTURE (6) History of colon cancer Code(s): Z85.038 - PERSONAL HISTORY OF MALIGNANT NEOPLASM OF LARGE INTESTINE (7) Inability to ambulate due to hip Code(s): R26.2 - DIFFICULTY IN WALKING, NOT ELSEWHERE CLASSIFIED (8) Intertrochanteric fracture of right hip Code(s): S72.141A - DISPLACED INTERTROCHANTERIC FRACTURE OF RIGHT FEMUR, INIT (9) Small bowel obstruction Code(s): K56.609 - UNSP INTESTNL OBST, UNSP TO PARTIAL VERSUS COMPLETE OBST (10) Syncope and collapse Code(s): R55 - SYNCOPE AND COLLAPSE (11) Bacteremia due to Gram-negative bacteria Code(s): R78.81 - BACTEREMIA (12) Leukocytosis Code(s): D72.829 - ELEVATED WHITE BLOOD CELL COUNT, UNSPECIFIED Assessment/Plan Assessment/plan: acutely infected multiple decubiti of the left buttock, hips and sacrum, sepsis, acute E. Coli bacteremia, cachexia; IV Aztreonam and Vancomycin, DVT/GI prophylaxis, frequent change of body position, mirtazapine for insomnia, topical Collagenase, topical sodium hypochlorite, oral tylenol for pain, air flow mattress.
[2019-09-07] MEDS: AMINO ACIDS/PROTEIN HYDROLYS 30 ML LIQUID.PKT PO SCH ×2 (09:09→18:29)
[2019-09-07] MEDS: ENOXAPARIN NA (PORCINE) 40 MG/0.4 ML DISP.SYRIN SQ SCH (09:10)
[2019-09-07] MEDS: SODIUM HYPOCHLORITE 0.5% 473 ML- BULK BOTTLE TP SCH (09:10)
[2019-09-07] MEDS: COLLAGENASE CLOSTRIDIUM HIST. 30 GRAMS TUBE TP SCH ×2 (09:10→21:20)
[2019-09-07] MEDS: PANTOPRAZOLE 40 MG TABLET PO SCH (09:10)
[2019-09-07 09:39] LABS: BASO % 0.7 % (0-2.0); EOS % 3.4 % (0-4.5); HEMATOCRIT 34.8 % (32.4-45.2); HEMOGLOBIN 11.2 GM/dL (10.7-15.3); LYMPH % 11.1 % (8-40); MCH 29.1 pg (25.7-33.7); MCHC 32.3 g/dl (32.0-36.0); MEAN CELL VOLUME 90.2 fl (80-96); MEAN PLT VOLUME 8.7 fl (7.5-11.1); MONO % 6.4 % (3.8-10.2); NEUT % 78.4 % (42.8-82.8); PLATELET COUNT 262 K/MM3 (134-434); RBC 3.86 M/mm3 (3.60-5.2); RDW 12.8 % (11.6-15.6); WHITE BLOOD COUNT 7.2 K/mm3 (4.0-10.0)
--- NOTE | 2019-09-07 09:48 | PN ---
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 (short form) - Note 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: SURGERY Patient initially evaluated by our service 09/01/19 GEN: alert. not oriented (dementia). no apparent distress. cachectic LE: bilateral hip ulcers, have improved since my initial exam. significant reduction in amount of fibrinous slough, no purulent drainage. not malodorous. 2+ pulses, warm, well-perfused. No calf tenderness. No peripheral edema. 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 No undermining/drainage/not malodorus A/P: bilat hiip ulcers -Apply liberal application of santyl to deepest part of both wounds, then add a saturated 4x4 with Dakins, optifoam -Reposition every two hours while in bed -Air mattress recommended -Use drawsheets and Trendelenburg when repositioning to reduce friction and shear -Manageincontinence via timely cleansing, use of appropriate incontinence disposables and use of barrier ointment to intact skin -Ensure adequate hydration/nutrition, supplementation per primary team -Ensure off-loading to all bony areas (heels, ankles, hips and tailbone) with Allevyn/Optifoam No ofurther surgical input Re-consult surgery PRN on behalf of Dr. Dawn, thank you for the opportunity to participate in your patient's care. Problem List - Problems (1) Decubitus ulcers Code(s): L89.90 - PRESSURE ULCER OF UNSPECIFIED SITE, UNSPECIFIED STAGE (2) Dementia Code(s): F03.90 - UNSPECIFIED DEMENTIA WITHOUT BEHAVIORAL DISTURBANCE
[2019-09-07 09:59] LABS: POTASSIUM 4.3 mmol/L (3.5-5.1)
[2019-09-07 10:09] LABS: ALBUMIN 2.1 g/dl (3.4-5.0); BILIRUBIN,TOTAL 0.2 mg/dL (0.2-1); BLOOD UREA NITROGEN 14.6 mg/dL (7-18); CALCIUM 10.1 mg/dL (8.5-10.1); CREATININE 0.3 mg/dL (0.55-1.3); TOT PROT 5.8 g/dl (6.4-8.2)
--- NOTE | 2019-09-07 11:08 | PN ---
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 - Note 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: Selected Entries 09/04/19 09/04/19 09/05/19 12:30 18:00 10:00 Breakfast 50% Diet Tolerated Poor Poor Poor Lunch 25% 25% Skin Risk Level Supper 25% Total Score - Skin Risk Assessment Temperature Pulse Rate Blood Pressure 09/05/19 09/05/19 09/06/19 18:00 22:00 06:00 Breakfast Diet Tolerated Poor Refused Lunch Skin Risk Level Supper 25% 0 Total Score - Skin Risk Assessment Temperature 98.6 F Pulse Rate 98 H Blood Pressure 110/59 L 09/06/19 09/06/19 09/06/19 09:01 09:08 14:00 Breakfast Diet Tolerated Lunch Skin Risk Level High Risk Supper Total Score - 11 Skin Risk Assessment Temperature 98.4 F 97.6 F Pulse Rate 99 H 101 H Blood Pressure 109/59 L 115/58 L 09/06/19 09/06/19 09/06/19 15:40 18:00 21:45 Breakfast 25% Diet Tolerated Fair Poor Lunch 25% Skin Risk Level Supper 25% Total Score - Skin Risk Assessment Temperature 98.4 F 98.2 F Pulse Rate 97 H 98 H Blood Pressure 112/60 106/56 L 09/06/19 09/07/19 22:00 05:03 Breakfast Diet Tolerated Poor Lunch Skin Risk Level High Risk Supper 25% Total Score - 11 Skin Risk Assessment Temperature 98.2 F Pulse Rate 91 H Blood Pressure 100/55 L Laboratory Tests 09/07/19 08:20 WBC 7.2 Diet order chopped/thin downgraded by ALAN top puree/thin/ensure based on conversation with family. Intermittent acceptance. Remeron ordered 09/03+
--- NOTE | 2019-09-07 11:53 | PN ---
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, Physician History of Present Illness: stable says she does not feel too well not eating much - Current Medication List Current Medications: Active Medications Acetaminophen (Tylenol Oral Solution -) 650 mg PO Q6H [facility] Last Admin: 09/07/19 09:09 Dose: 650 mg Documented by: Amino Acids (Prosource No Carb Liquid Pkt) 30 ml PO BID@0800,1730 [facility] Last Admin: 09/07/19 09:09 Dose: 30 ml Documented by: Collagenase (Santyl -) 1 applic TP BID [facility]; Protocol Last Admin: 09/07/19 09:10 Dose: 1 applic Documented by: Enoxaparin Sodium (Lovenox -) 40 mg SQ DAILY [facility] Last Admin: 09/07/19 09:10 Dose: 40 mg Documented by: Potassium Chloride/Dextrose/Sod Cl (D5-1/2ns+20 Meq Kcl -) 20 meq in 1,000 mls @ 42 mls/hr IV ASDIR [facility] Last Admin: 09/06/19 16:21 Dose: 42 mls/hr Documented by: Aztreonam 1 gm/ Dextrose 50 mls @ 100 mls/hr IVPB Q8H-IV [facility]; Protocol Last Admin: 09/07/19 09:08 Dose: 100 mls/hr Documented by: Vancomycin HCl 750 mg/ (Dextrose) 250 mls @ 166.667 mls/hr IVPB Q12H [facility]; Protocol Last Admin: 09/07/19 03:13 Dose: 166.667 mls/hr Documented by: Mirtazapine (Remeron -) 22.5 mg PO HS [facility] Last Admin: 09/06/19 21:40 Dose: 22.5 mg Documented by: Pantoprazole Sodium (Protonix -) 40 mg PO DAILY [facility] Last Admin: 09/07/19 09:10 Dose: 40 mg Documented by: Sodium Hypochlorite (Dakin's Solution 0.5% (Full Strength) -) 1 applic TP DAILY [facility] Last Admin: 09/07/19 09:10 Dose: 1 applic Documented by: - Objective Vital Signs: Vital Signs Temperature 98.2 F 09/07/19 05:03 Pulse Rate 91 H 09/07/19 05:03 Respiratory Rate 20 09/07/19 05:03 Blood Pressure 100/55 L 09/07/19 05:03 O2 Sat by Pulse Oximetry (%) 97 09/06/19 21:00 Constitutional: Yes: No Distress, Calm, Thin, Other (failure to thrive) HENT: Yes: Atraumatic Neck: Yes: Supple, Trachea Midline Cardiovascular: Yes: Regular Rate and Rhythm Respiratory: Yes: Regular, CTA Bilaterally Gastrointestinal: Yes: Normal Bowel Sounds, Soft Musculoskeletal: Yes: WNL Extremities: Yes: Other Integumentary: Yes: Other Wound/Incision: Yes: Dressing Dry and Intact Neurological: Yes: Alert, Oriented Psychiatric: Yes: Alert, Oriented Labs: CBC, BMP 09/07/19 08:20 09/07/19 08:20 Assessment/Plan Problem List - Problems (1) Decubitus ulcers Code(s): L89.90 - PRESSURE ULCER OF UNSPECIFIED SITE, UNSPECIFIED STAGE (2) Anemia Code(s): D64.9 - ANEMIA, UNSPECIFIED Qualifiers: Anemia type: iron deficiency Iron deficiency anemia type: unspecified iron deficiency Qualified Code(s): D50.9 - Iron deficiency anemia, unspecified (3) Constipation Code(s): K59.00 - CONSTIPATION, UNSPECIFIED (4) Dementia Code(s): F03.90 - UNSPECIFIED DEMENTIA WITHOUT BEHAVIORAL DISTURBANCE (5) Fracture of pubic ramus Code(s): S32.599A - OTH FRACTURE OF UNSP PUBIS, INIT ENCNTR FOR CLOSED FRACTURE (6) History of colon cancer Code(s): Z85.038 - PERSONAL HISTORY OF MALIGNANT NEOPLASM OF LARGE INTESTINE (7) Inability to ambulate due to hip Code(s): R26.2 - DIFFICULTY IN WALKING, NOT ELSEWHERE CLASSIFIED (8) Intertrochanteric fracture of right hip Code(s): S72.141A - DISPLACED INTERTROCHANTERIC FRACTURE OF RIGHT FEMUR, INIT (9) Small bowel obstruction Code(s): K56.609 - UNSP INTESTNL OBST, UNSP TO PARTIAL VERSUS COMPLETE OBST (10) Syncope and collapse Code(s): R55 - SYNCOPE AND COLLAPSE (11) Bacteremia due to Gram-negative bacteria Code(s): R78.81 - BACTEREMIA (12) Leukocytosis Code(s): D72.829 - ELEVATED WHITE BLOOD CELL COUNT, UNSPECIFIED Assessment/Plan continue current mgmt continue vanco await for final plan rest as per the team
[2019-09-07] MEDS: D5-1/2NS+20 MEQ KCL - 20 MEQ/1,000 ML INFUS.BAG IV SCH (18:29)
[2019-09-07] MEDS ORDERED: ACETAMINOPHEN 325 MG TABLET (FP) ONE (20:16)
[2019-09-07] MEDS: MIRTAZAPINE 15 MG TABLET (FP) PO SCH (21:18)
[2019-09-08] MEDS: AZTREONAM 1 GM in DEXTROSE 5%-WATER - 50 ML IVPB SCH ×3 (01:09→18:17)
[2019-09-08] MEDS: ACETAMINOPHEN 650 MG/20.3 ML ORAL SOLUTION (CUPS) PO SCH ×4 (01:49→15:02)
[2019-09-08] MEDS: VANCOMYCIN 750 MG in DEXTROSE 5%-WATER - 250 ML IVPB SCH ×2 (02:16→16:34)
[2019-09-08 08:25] LABS: BASO % 0.8 % (0-2.0); HEMOGLOBIN 11.6 GM/dL (10.7-15.3); LYMPH % 11.1 % (8-40); MCH 30.1 pg (25.7-33.7); MCHC 33.2 g/dl (32.0-36.0); MEAN CELL VOLUME 90.8 fl (80-96); MEAN PLT VOLUME 8.8 fl (7.5-11.1); MONO % 5.7 % (3.8-10.2); NEUT % 79.4 % (42.8-82.8); PLATELET COUNT 286 K/MM3 (134-434); RBC 3.85 M/mm3 (3.60-5.2); RDW 12.8 % (11.6-15.6)
[2019-09-08 08:42] LABS: ALBUMIN 2.1 g/dl (3.4-5.0); BILIRUBIN,TOTAL 0.4 mg/dL (0.2-1); BLOOD UREA NITROGEN 17.8 mg/dL (7-18); CALCIUM 9.9 mg/dL (8.5-10.1); CREATININE 0.2 mg/dL (0.55-1.3); POTASSIUM 4.2 mmol/L (3.5-5.1)
[2019-09-08] MEDS: ENOXAPARIN NA (PORCINE) 40 MG/0.4 ML DISP.SYRIN SQ SCH (09:04)
[2019-09-08] MEDS: AMINO ACIDS/PROTEIN HYDROLYS 30 ML LIQUID.PKT PO SCH ×2 (09:04→16:34)
[2019-09-08] MEDS: SODIUM HYPOCHLORITE 0.5% 473 ML- BULK BOTTLE TP SCH (09:05)
[2019-09-08] MEDS: PANTOPRAZOLE 40 MG TABLET PO SCH (09:05)
[2019-09-08] MEDS: COLLAGENASE CLOSTRIDIUM HIST. 30 GRAMS TUBE TP SCH ×2 (09:05→22:08)
--- NOTE | 2019-09-08 09:17 | PN ---
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, Physician Chief Complaint: Patient seen and examined at the bedside, no acute events from last night, afebrile. History of Present Illness: This 88 yr old w/f with PMH of HTN, colon cancer, s/p colon resection, dementia admitted via ER with an acutely infected multiple decubiti of the left buttock, hips and sacrum and an acute E. Coli bacteremia. - Current Medication List Current Medications: Active Medications Acetaminophen (Tylenol Oral Solution -) 650 mg PO Q6H [facility] Last Admin: 09/08/19 09:04 Dose: 650 mg Documented by: Amino Acids (Prosource No Carb Liquid Pkt) 30 ml PO BID@0800,1730 [facility] Last Admin: 09/08/19 09:04 Dose: 30 ml Documented by: Collagenase (Santyl -) 1 applic TP BID [facility]; Protocol Last Admin: 09/08/19 09:05 Dose: 1 applic Documented by: Enoxaparin Sodium (Lovenox -) 40 mg SQ DAILY [facility] Last Admin: 09/08/19 09:04 Dose: 40 mg Documented by: Potassium Chloride/Dextrose/Sod Cl (D5-1/2ns+20 Meq Kcl -) 20 meq in 1,000 mls @ 42 mls/hr IV ASDIR [facility] Last Admin: 09/07/19 18:29 Dose: Not Given Documented by: Aztreonam 1 gm/ Dextrose 50 mls @ 100 mls/hr IVPB Q8H-IV [facility]; Protocol Last Admin: 09/08/19 09:05 Dose: 100 mls/hr Documented by: Vancomycin HCl 750 mg/ (Dextrose) 250 mls @ 166.667 mls/hr IVPB Q12H [facility]; Protocol Last Admin: 09/08/19 02:16 Dose: 166.667 mls/hr Documented by: Mirtazapine (Remeron -) 22.5 mg PO HS [facility] Last Admin: 09/07/19 21:18 Dose: 22.5 mg Documented by: Pantoprazole Sodium (Protonix -) 40 mg PO DAILY [facility] Last Admin: 09/08/19 09:05 Dose: 40 mg Documented by: Sodium Hypochlorite (Dakin's Solution 0.5% (Full Strength) -) 1 applic TP DAILY [facility] Last Admin: 09/08/19 09:05 Dose: 1 applic Documented by: - Objective Vital Signs: Vital Signs Temperature 98.2 F 09/08/19 08:26 Pulse Rate 106 H 09/08/19 08:26 Respiratory Rate 18 09/08/19 08:26 Blood Pressure 89/52 L 09/08/19 08:26 O2 Sat by Pulse Oximetry (%) 94 L 09/08/19 08:26 Constitutional: Yes: No Distress, Calm, Cachectic, Thin Eyes: Yes: Conjunctiva Clear, EOM Intact HENT: Yes: Atraumatic, Normocephalic Neck: Yes: Supple, Trachea Midline Cardiovascular: Yes: Regular Rate and Rhythm Respiratory: Yes: Regular, CTA Bilaterally Gastrointestinal: Yes: Normal Bowel Sounds, Soft ...Rectal Exam: Yes: Deferred Genitourinary: Yes: Kohli Present Breast(s): Yes: WNL Musculoskeletal: Yes: Muscle Weakness Extremities: Yes: WNL Edema: No Peripheral Pulses WNL: Yes Integumentary: Yes: Pressure Ulcer (left buttock, hips and sacrum) Neurological: Yes: Alert, Confusion, Unsteady Gait, Weakness ...Motor Strength: LUE (generalized weakness of all extremities) Psychiatric: Yes: Alert Labs: CBC, BMP 09/08/19 07:35 09/08/19 06:00 - ....Imaging Other: Report Reviewed (lab data reviewed) Problem List - Problems (1) Decubitus ulcers Code(s): L89.90 - PRESSURE ULCER OF UNSPECIFIED SITE, UNSPECIFIED STAGE (2) Anemia Code(s): D64.9 - ANEMIA, UNSPECIFIED Qualifiers: Anemia type: iron deficiency Iron deficiency anemia type: unspecified iron deficiency Qualified Code(s): D50.9 - Iron deficiency anemia, unspecified (3) Constipation Code(s): K59.00 - CONSTIPATION, UNSPECIFIED (4) Dementia Code(s): F03.90 - UNSPECIFIED DEMENTIA WITHOUT BEHAVIORAL DISTURBANCE (5) Fracture of pubic ramus Code(s): S32.599A - OTH FRACTURE OF UNSP PUBIS, INIT ENCNTR FOR CLOSED FRACTURE (6) History of colon cancer Code(s): Z85.038 - PERSONAL HISTORY OF MALIGNANT NEOPLASM OF LARGE INTESTINE (7) Inability to ambulate due to hip Code(s): R26.2 - DIFFICULTY IN WALKING, NOT ELSEWHERE CLASSIFIED (8) Intertrochanteric fracture of right hip Code(s): S72.141A - DISPLACED INTERTROCHANTERIC FRACTURE OF RIGHT FEMUR, INIT (9) Small bowel obstruction Code(s): K56.609 - UNSP INTESTNL OBST, UNSP TO PARTIAL VERSUS COMPLETE OBST (10) Syncope and collapse Code(s): R55 - SYNCOPE AND COLLAPSE (11) Bacteremia due to Gram-negative bacteria Code(s): R78.81 - BACTEREMIA (12) Leukocytosis Code(s): D72.829 - ELEVATED WHITE BLOOD CELL COUNT, UNSPECIFIED Assessment/Plan Assessment/plan: acutely infected multiple decubiti of the left buttock, hips and sacrum, sepsis, acute E. Coli bacteremia, HTN, colon cancer, s/p colon resection, demenetia; IV fluids, IV Aztreonam and Vancomycin as per ID, wound care, physical therapy, amino acids, topical Collagenase, mirtazapine for insomnia, DVT/GI prophylaxis.
--- NOTE | 2019-09-08 10:25 | PN ---
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 - Note 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: Selected Entries 09/04/19 09/04/19 09/05/19 12:30 18:00 10:00 Breakfast 50% Diet Tolerated Poor Poor Poor Lunch 25% 25% Skin Risk Level Supper 25% Total Score - Skin Risk Assessment Temperature Pulse Rate Blood Pressure 09/05/19 09/05/19 09/06/19 18:00 22:00 06:00 Breakfast Diet Tolerated Poor Refused Lunch Skin Risk Level Supper 25% 0 Total Score - Skin Risk Assessment Temperature 98.6 F Pulse Rate 98 H Blood Pressure 110/59 L 09/06/19 09/06/19 09/06/19 09:01 09:08 14:00 Breakfast Diet Tolerated Lunch Skin Risk Level High Risk Supper Total Score - 11 Skin Risk Assessment Temperature 98.4 F 97.6 F Pulse Rate 99 H 101 H Blood Pressure 109/59 L 115/58 L 09/06/19 09/06/19 09/06/19 15:40 18:00 21:45 Breakfast 25% Diet Tolerated Fair Poor Lunch 25% Skin Risk Level Supper 25% Total Score - Skin Risk Assessment Temperature 98.4 F 98.2 F Pulse Rate 97 H 98 H Blood Pressure 112/60 106/56 L 09/06/19 09/07/19 22:00 05:03 Breakfast Diet Tolerated Poor Lunch Skin Risk Level High Risk Supper 25% Total Score - 11 Skin Risk Assessment Temperature 98.2 F Pulse Rate 91 H Blood Pressure 100/55 L Laboratory Tests 09/07/19 08:20 WBC 7.2 Diet order chopped/thin downgraded by RD top puree/thin/ensure based on conversation with family. Intermittent acceptance. Remeron ordered 09/03+ Consider adding sweetener to food, condiments, for improved acceptance- eg maple syrup, bbq sauce, sugar (Sweet is last preserved taste in pts with Dementia)
--- NOTE | 2019-09-08 12:39 | PN ---
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, Physician History of Present Illness: no overnight issues multiple decubitus ulcers - Current Medication List Current Medications: Active Medications Acetaminophen (Tylenol Oral Solution -) 650 mg PO Q6H [facility] Last Admin: 09/08/19 09:04 Dose: Not Given Documented by: Amino Acids (Prosource No Carb Liquid Pkt) 30 ml PO BID@0800,1730 [facility] Last Admin: 09/08/19 09:04 Dose: Not Given Documented by: Collagenase (Santyl -) 1 applic TP BID [facility]; Protocol Last Admin: 09/08/19 09:05 Dose: Not Given Documented by: Enoxaparin Sodium (Lovenox -) 40 mg SQ DAILY [facility] Last Admin: 09/08/19 09:04 Dose: Not Given Documented by: Potassium Chloride/Dextrose/Sod Cl (D5-1/2ns+20 Meq Kcl -) 20 meq in 1,000 mls @ 42 mls/hr IV ASDIR [facility] Last Admin: 09/07/19 18:29 Dose: Not Given Documented by: Aztreonam 1 gm/ Dextrose 50 mls @ 100 mls/hr IVPB Q8H-IV [facility]; Protocol Last Admin: 09/08/19 09:05 Dose: 100 mls/hr Documented by: Vancomycin HCl 750 mg/ (Dextrose) 250 mls @ 166.667 mls/hr IVPB Q12H [facility]; Protocol Last Admin: 09/08/19 02:16 Dose: 166.667 mls/hr Documented by: Mirtazapine (Remeron -) 22.5 mg PO HS [facility] Last Admin: 09/07/19 21:18 Dose: 22.5 mg Documented by: Pantoprazole Sodium (Protonix -) 40 mg PO DAILY [facility] Last Admin: 09/08/19 09:05 Dose: Not Given Documented by: Sodium Hypochlorite (Dakin's Solution 0.5% (Full Strength) -) 1 applic TP DAILY [facility] Last Admin: 09/08/19 09:05 Dose: Not Given Documented by: - Objective Vital Signs: Vital Signs Temperature 98.2 F 09/08/19 08:26 Pulse Rate 106 H 09/08/19 08:26 Respiratory Rate 18 09/08/19 08:26 Blood Pressure 89/52 L 09/08/19 08:26 O2 Sat by Pulse Oximetry (%) 94 L 09/08/19 08:26 Constitutional: Yes: No Distress, Anxious Cardiovascular: Yes: S1, S2 Respiratory: Yes: Regular, CTA Bilaterally Gastrointestinal: Yes: Normal Bowel Sounds, Soft Musculoskeletal: Yes: WNL Extremities: Yes: Other Wound/Incision: Yes: Dressing Dry and Intact Neurological: Yes: Alert Labs: CBC, BMP 09/08/19 07:35 09/08/19 06:00 Assessment/Plan Problem List - Problems (1) Decubitus ulcers Code(s): L89.90 - PRESSURE ULCER OF UNSPECIFIED SITE, UNSPECIFIED STAGE (2) Anemia Code(s): D64.9 - ANEMIA, UNSPECIFIED Qualifiers: Anemia type: iron deficiency Iron deficiency anemia type: unspecified iron deficiency Qualified Code(s): D50.9 - Iron deficiency anemia, unspecified (3) Constipation Code(s): K59.00 - CONSTIPATION, UNSPECIFIED (4) Dementia Code(s): F03.90 - UNSPECIFIED DEMENTIA WITHOUT BEHAVIORAL DISTURBANCE (5) Fracture of pubic ramus Code(s): S32.599A - OTH FRACTURE OF UNSP PUBIS, INIT ENCNTR FOR CLOSED FRACTURE (6) History of colon cancer Code(s): Z85.038 - PERSONAL HISTORY OF MALIGNANT NEOPLASM OF LARGE INTESTINE (7) Inability to ambulate due to hip Code(s): R26.2 - DIFFICULTY IN WALKING, NOT ELSEWHERE CLASSIFIED (8) Intertrochanteric fracture of right hip Code(s): S72.141A - DISPLACED INTERTROCHANTERIC FRACTURE OF RIGHT FEMUR, INIT (9) Small bowel obstruction Code(s): K56.609 - UNSP INTESTNL OBST, UNSP TO PARTIAL VERSUS COMPLETE OBST (10) Syncope and collapse Code(s): R55 - SYNCOPE AND COLLAPSE (11) Bacteremia due to Gram-negative bacteria Code(s): R78.81 - BACTEREMIA (12) Leukocytosis Code(s): D72.829 - ELEVATED WHITE BLOOD CELL COUNT, UNSPECIFIED Assessment/Plan continue current mgmt continue vanco will check vanco trough repeat blood cx are negative
[2019-09-08] MEDS: MORPHINE SULFATE 2 MG/ML VIAL IVPUSH SCH ×2 (15:54→21:55)
[2019-09-08] MEDS: D5-1/2NS+20 MEQ KCL - 20 MEQ/1,000 ML INFUS.BAG IV SCH (16:27)
[2019-09-08] MEDS: MIRTAZAPINE 15 MG TABLET (FP) PO SCH (22:02)
[2019-09-09] MEDS: AZTREONAM 1 GM in DEXTROSE 5%-WATER - 50 ML IVPB SCH ×3 (01:20→17:43)
[2019-09-09] MEDS: VANCOMYCIN 750 MG in DEXTROSE 5%-WATER - 250 ML IVPB SCH ×2 (02:59→14:45)
[2019-09-09] MEDS: MORPHINE SULFATE 2 MG/ML VIAL IVPUSH SCH ×5 (03:53→20:59)
[2019-09-09] MEDS: AMINO ACIDS/PROTEIN HYDROLYS 30 ML LIQUID.PKT PO SCH ×2 (09:31→17:43)
[2019-09-09] MEDS: PANTOPRAZOLE 40 MG TABLET PO SCH (09:32)
[2019-09-09] MEDS: ENOXAPARIN NA (PORCINE) 40 MG/0.4 ML DISP.SYRIN SQ SCH (09:33)
[2019-09-09] MEDS: COLLAGENASE CLOSTRIDIUM HIST. 30 GRAMS TUBE TP SCH ×2 (09:34→21:09)
[2019-09-09] MEDS: SODIUM HYPOCHLORITE 0.5% 473 ML- BULK BOTTLE TP SCH (09:34)
--- NOTE | 2019-09-09 09:40 | PN ---
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, Physician Chief Complaint: Patient seen and examined at the bedside, no acute events from last night, c/o pain of her low back. History of Present Illness: This 88 yr old w/f with PMH of HTN, colon cancer, s/p colon resection, and dementia admitted via ER with an acutely infected multiple decubiti of the left buttock, hips and sacrum, and an acute E. Coli bacteremia and sepsis. - Current Medication List Current Medications: Active Medications Amino Acids (Prosource No Carb Liquid Pkt) 30 ml PO BID@0800,1730 [facility] Last Admin: 09/09/19 09:31 Dose: 30 ml Documented by: Collagenase (Santyl -) 1 applic TP BID [facility]; Protocol Last Admin: 09/09/19 09:34 Dose: 1 applic Documented by: Enoxaparin Sodium (Lovenox -) 40 mg SQ DAILY [facility] Last Admin: 09/09/19 09:33 Dose: 40 mg Documented by: Potassium Chloride/Dextrose/Sod Cl (D5-1/2ns+20 Meq Kcl -) 20 meq in 1,000 mls @ 42 mls/hr IV ASDIR [facility] Last Admin: 09/08/19 16:27 Dose: Not Given Documented by: Aztreonam 1 gm/ Dextrose 50 mls @ 100 mls/hr IVPB Q8H-IV [facility]; Protocol Last Admin: 09/09/19 09:32 Dose: 100 mls/hr Documented by: Vancomycin HCl 750 mg/ (Dextrose) 250 mls @ 166.667 mls/hr IVPB Q12H [facility]; Protocol Last Admin: 09/09/19 02:59 Dose: 166.667 mls/hr Documented by: Mirtazapine (Remeron -) 22.5 mg PO HS [facility] Last Admin: 09/08/19 22:02 Dose: 22.5 mg Documented by: Morphine Sulfate (Morphine Sulfate) 0.3 mg IVPUSH Q6H [facility] Last Admin: 09/09/19 09:32 Dose: 0.3 mg Documented by: Pantoprazole Sodium (Protonix -) 40 mg PO DAILY [facility] Last Admin: 09/09/19 09:32 Dose: 40 mg Documented by: Sodium Hypochlorite (Dakin's Solution 0.5% (Full Strength) -) 1 applic TP DAILY [facility] Last Admin: 09/09/19 09:34 Dose: 1 applic Documented by: - Objective Vital Signs: Vital Signs Temperature 97.8 F 09/09/19 08:50 Pulse Rate 92 H 09/09/19 08:50 Respiratory Rate 20 09/09/19 08:59 Blood Pressure 92/53 L 09/09/19 08:50 O2 Sat by Pulse Oximetry (%) 96 09/09/19 08:59 Constitutional: Yes: Calm, Cachectic, Mild Distress, Thin Eyes: Yes: Conjunctiva Clear, EOM Intact HENT: Yes: Atraumatic, Normocephalic Neck: Yes: Supple, Trachea Midline Cardiovascular: Yes: Regular Rate and Rhythm Respiratory: Yes: Regular, CTA Bilaterally Gastrointestinal: Yes: Normal Bowel Sounds, Soft ...Rectal Exam: Yes: Deferred Genitourinary: Yes: Kohli Present Breast(s): Yes: WNL Musculoskeletal: Yes: Muscle Weakness Extremities: Yes: WNL Edema: No Peripheral Pulses WNL: Yes Integumentary: Yes: Pressure Ulcer (left buttock, hips and sacrum) Neurological: Yes: Alert, Confusion, Unsteady Gait, Weakness ...Motor Strength: LUE (generalized muscle weakness of all extremities) Psychiatric: Yes: Alert Labs: CBC, BMP 09/08/19 07:35 09/08/19 06:00 - ....Imaging Other: Report Reviewed (lab data reviewed) Problem List - Problems (1) Decubitus ulcers Code(s): L89.90 - PRESSURE ULCER OF UNSPECIFIED SITE, UNSPECIFIED STAGE (2) Anemia Code(s): D64.9 - ANEMIA, UNSPECIFIED Qualifiers: Anemia type: iron deficiency Iron deficiency anemia type: unspecified iron deficiency Qualified Code(s): D50.9 - Iron deficiency anemia, unspecified (3) Constipation Code(s): K59.00 - CONSTIPATION, UNSPECIFIED (4) Dementia Code(s): F03.90 - UNSPECIFIED DEMENTIA WITHOUT BEHAVIORAL DISTURBANCE (5) Fracture of pubic ramus Code(s): S32.599A - OTH FRACTURE OF UNSP PUBIS, INIT ENCNTR FOR CLOSED FRACTURE (6) History of colon cancer Code(s): Z85.038 - PERSONAL HISTORY OF MALIGNANT NEOPLASM OF LARGE INTESTINE (7) Inability to ambulate due to hip Code(s): R26.2 - DIFFICULTY IN WALKING, NOT ELSEWHERE CLASSIFIED (8) Intertrochanteric fracture of right hip Code(s): S72.141A - DISPLACED INTERTROCHANTERIC FRACTURE OF RIGHT FEMUR, INIT (9) Small bowel obstruction Code(s): K56.609 - UNSP INTESTNL OBST, UNSP TO PARTIAL VERSUS COMPLETE OBST (10) Syncope and collapse Code(s): R55 - SYNCOPE AND COLLAPSE (11) Bacteremia due to Gram-negative bacteria Code(s): R78.81 - BACTEREMIA (12) Leukocytosis Code(s): D72.829 - ELEVATED WHITE BLOOD CELL COUNT, UNSPECIFIED Assessment/Plan Assessment/plan: acutely infected multiple decubiti of the left buttock, hips and sacrum and an acute E. Colie bacteremia, sepsis, HTN, colon cancer, s/p colon resection, dementia; IV Aztreonam and Vancomycin as per ID for E. Coli bacteremia and acutely infected multiple decubiti, mirtazapine for insomnia, IV morphine sulfate for pain of low back, DVT/GI prophylaxis, physical therapy, IV fluids, amino acids, topical Collagenase, topical sodium hypochlorite.
--- NOTE | 2019-09-09 10:35 | PN ---
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, MATHEMATICS DEPARTMENT CHAIR - Note 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: Selected Entries 09/04/19 09/04/19 09/05/19 12:30 18:00 10:00 Breakfast 50% Diet Tolerated Poor Poor Poor Lunch 25% 25% Skin Risk Level Supper 25% Total Score - Skin Risk Assessment Temperature Pulse Rate Blood Pressure 09/05/19 09/05/19 09/06/19 18:00 22:00 06:00 Breakfast Diet Tolerated Poor Refused Lunch Skin Risk Level Supper 25% 0 Total Score - Skin Risk Assessment Temperature 98.6 F Pulse Rate 98 H Blood Pressure 110/59 L 09/06/19 09/06/19 09/06/19 09:01 09:08 14:00 Breakfast Diet Tolerated Lunch Skin Risk Level High Risk Supper Total Score - 11 Skin Risk Assessment Temperature 98.4 F 97.6 F Pulse Rate 99 H 101 H Blood Pressure 109/59 L 115/58 L 09/06/19 09/06/19 09/06/19 15:40 18:00 21:45 Breakfast 25% Diet Tolerated Fair Poor Lunch 25% Skin Risk Level Supper 25% Total Score - Skin Risk Assessment Temperature 98.4 F 98.2 F Pulse Rate 97 H 98 H Blood Pressure 112/60 106/56 L 09/06/19 09/07/19 22:00 05:03 Breakfast Diet Tolerated Poor Lunch Skin Risk Level High Risk Supper 25% Total Score - 11 Skin Risk Assessment Temperature 98.2 F Pulse Rate 91 H Blood Pressure 100/55 L Laboratory Tests 09/07/19 08:20 WBC 7.2 Selected Entries 09/08/19 09/08/19 09/09/19 14:00 18:35 05:31 Breakfast 25% Lunch 25% Supper 25% Temperature 97.8 F Pulse Rate 90 Blood Pressure 98/61 09/09/19 08:50 Breakfast 50% Lunch Supper Temperature 97.8 F Pulse Rate 92 H Blood Pressure 92/53 L Laboratory Tests 09/08/19 07:35 WBC 7.0 Diet order chopped/thin downgraded by ALAN menjivar puree/thin/ensure based on conversation with family. Intermittent acceptance. 50% this am. Remeron ordered 09/03+ Consider adding sweetener to food, condiments, for improved acceptance- eg maple syrup, bbq sauce, sugar (Sweet is last preserved taste in pts with Dementia)
--- NOTE | 2019-09-09 12:09 | PN ---
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, Physician History of Present Illness: stable no new issues bacteremia cleared - Current Medication List Current Medications: Active Medications Amino Acids (Prosource No Carb Liquid Pkt) 30 ml PO BID@0800,1730 [facility] Last Admin: 09/09/19 09:31 Dose: 30 ml Documented by: Collagenase (Santyl -) 1 applic TP BID [facility]; Protocol Last Admin: 09/09/19 09:34 Dose: 1 applic Documented by: Enoxaparin Sodium (Lovenox -) 40 mg SQ DAILY [facility] Last Admin: 09/09/19 09:33 Dose: 40 mg Documented by: Aztreonam 1 gm/ Dextrose 50 mls @ 100 mls/hr IVPB Q8H-IV [facility]; Protocol Last Admin: 09/09/19 09:32 Dose: 100 mls/hr Documented by: Vancomycin HCl 750 mg/ (Dextrose) 250 mls @ 166.667 mls/hr IVPB Q12H [facility]; Protocol Last Admin: 09/09/19 02:59 Dose: 166.667 mls/hr Documented by: Potassium Chloride/Dextrose/Sod Cl (D5-1/2ns+20 Meq Kcl -) 20 meq in 1,000 mls @ 50 mls/hr IV ASDIR [facility] Mirtazapine (Remeron -) 22.5 mg PO HS [facility] Last Admin: 09/08/19 22:02 Dose: 22.5 mg Documented by: Morphine Sulfate (Morphine Sulfate) 0.5 mg IVPUSH Q6H [facility] Pantoprazole Sodium (Protonix -) 40 mg PO DAILY [facility] Last Admin: 09/09/19 09:32 Dose: 40 mg Documented by: Sodium Hypochlorite (Dakin's Solution 0.5% (Full Strength) -) 1 applic TP DAILY [facility] Last Admin: 09/09/19 09:34 Dose: 1 applic Documented by: - Objective Vital Signs: Vital Signs Temperature 97.8 F 09/09/19 08:50 Pulse Rate 92 H 09/09/19 08:50 Respiratory Rate 20 09/09/19 08:59 Blood Pressure 92/53 L 09/09/19 08:50 O2 Sat by Pulse Oximetry (%) 96 09/09/19 08:59 Constitutional: Yes: No Distress, Calm, Other (failure to thrive) Cardiovascular: Yes: S1, S2 Respiratory: Yes: Regular, CTA Bilaterally Gastrointestinal: Yes: Normal Bowel Sounds, Soft Musculoskeletal: Yes: WNL Extremities: Yes: Other Integumentary: Yes: Other Wound/Incision: Yes: Dressing Dry and Intact Neurological: Yes: Alert Psychiatric: Yes: Alert Labs: CBC, BMP 09/08/19 07:35 09/08/19 06:00 Assessment/Plan Problem List - Problems (1) Decubitus ulcers Code(s): L89.90 - PRESSURE ULCER OF UNSPECIFIED SITE, UNSPECIFIED STAGE (2) Anemia Code(s): D64.9 - ANEMIA, UNSPECIFIED Qualifiers: Anemia type: iron deficiency Iron deficiency anemia type: unspecified iron deficiency Qualified Code(s): D50.9 - Iron deficiency anemia, unspecified (3) Constipation Code(s): K59.00 - CONSTIPATION, UNSPECIFIED (4) Dementia Code(s): F03.90 - UNSPECIFIED DEMENTIA WITHOUT BEHAVIORAL DISTURBANCE (5) Fracture of pubic ramus Code(s): S32.599A - OTH FRACTURE OF UNSP PUBIS, INIT ENCNTR FOR CLOSED FRACTURE (6) History of colon cancer Code(s): Z85.038 - PERSONAL HISTORY OF MALIGNANT NEOPLASM OF LARGE INTESTINE (7) Inability to ambulate due to hip Code(s): R26.2 - DIFFICULTY IN WALKING, NOT ELSEWHERE CLASSIFIED (8) Intertrochanteric fracture of right hip Code(s): S72.141A - DISPLACED INTERTROCHANTERIC FRACTURE OF RIGHT FEMUR, INIT (9) Small bowel obstruction Code(s): K56.609 - UNSP INTESTNL OBST, UNSP TO PARTIAL VERSUS COMPLETE OBST (10) Syncope and collapse Code(s): R55 - SYNCOPE AND COLLAPSE (11) Bacteremia due to Gram-negative bacteria Code(s): R78.81 - BACTEREMIA (12) Leukocytosis Code(s): D72.829 - ELEVATED WHITE BLOOD CELL COUNT, UNSPECIFIED Assessment/Plan continue current mgmt continue abx rest as per the team
[2019-09-09] MEDS: D5-1/2NS+20 MEQ KCL - 20 MEQ/1,000 ML INFUS.BAG IV SCH (13:02)
[2019-09-09] MEDS: MIRTAZAPINE 15 MG TABLET (FP) PO SCH (21:08)
[2019-09-10] MEDS: AZTREONAM 1 GM in DEXTROSE 5%-WATER - 50 ML IVPB SCH ×3 (01:30→18:55)
[2019-09-10] MEDS: VANCOMYCIN 750 MG in DEXTROSE 5%-WATER - 250 ML IVPB SCH ×2 (03:25→15:21)
[2019-09-10] MEDS: MORPHINE SULFATE 2 MG/ML VIAL IVPUSH SCH ×4 (04:29→22:10)
[2019-09-10 08:12] LABS: BASO % 0.6 % (0-2.0); EOS % 2.9 % (0-4.5); HEMATOCRIT 33.9 % (32.4-45.2); LYMPH % 12.4 % (8-40); MCH 29.3 pg (25.7-33.7); MCHC 32.6 g/dl (32.0-36.0); MEAN CELL VOLUME 89.9 fl (80-96); MEAN PLT VOLUME 8.1 fl (7.5-11.1); MONO % 7.2 % (3.8-10.2); NEUT % 76.9 % (42.8-82.8); PLATELET COUNT 261 K/MM3 (134-434); RBC 3.77 M/mm3 (3.60-5.2); WHITE BLOOD COUNT 6.7 K/mm3 (4.0-10.0)
[2019-09-10 08:30] LABS: BILIRUBIN,TOTAL 0.4 mg/dL (0.2-1); BLOOD UREA NITROGEN 18.1 mg/dL (7-18); CALCIUM 10.2 mg/dL (8.5-10.1); CREATININE 0.3 mg/dL (0.55-1.3); POTASSIUM 4.1 mmol/L (3.5-5.1); TOT PROT 5.8 g/dl (6.4-8.2)
--- NOTE | 2019-09-10 08:59 | PN ---
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, Physician Chief Complaint: Patient seen and examined at the bedside, no acute events from last night, feeling comfortable, poor appetite, afebrile. History of Present Illness: This 88 yr old w/f with PMH of HTN, colon cancer, s/p colon resection, dementia admitted via ER with an acutely infected multiple decubiti of the left buttock, hips and sacrum, sepsis, and an acute E. Coli bacteremia. - Current Medication List Current Medications: Active Medications Amino Acids (Prosource No Carb Liquid Pkt) 30 ml PO BID@0800,1730 [facility] Last Admin: 09/09/19 17:43 Dose: 30 ml Documented by: Collagenase (Santyl -) 1 applic TP BID [facility]; Protocol Last Admin: 09/09/19 21:09 Dose: 1 applic Documented by: Enoxaparin Sodium (Lovenox -) 40 mg SQ DAILY [facility] Last Admin: 09/09/19 09:33 Dose: 40 mg Documented by: Aztreonam 1 gm/ Dextrose 50 mls @ 100 mls/hr IVPB Q8H-IV [facility]; Protocol Last Admin: 09/10/19 01:30 Dose: 100 mls/hr Documented by: Vancomycin HCl 750 mg/ (Dextrose) 250 mls @ 166.667 mls/hr IVPB Q12H [facility]; Protocol Last Admin: 09/10/19 03:25 Dose: 166.667 mls/hr Documented by: Potassium Chloride/Dextrose/Sod Cl (D5-1/2ns+20 Meq Kcl -) 20 meq in 1,000 mls @ 50 mls/hr IV ASDIR [facility] Last Admin: 09/09/19 13:02 Dose: Not Given Documented by: Mirtazapine (Remeron -) 22.5 mg PO HS [facility] Last Admin: 09/09/19 21:08 Dose: 22.5 mg Documented by: Morphine Sulfate (Morphine Sulfate) 0.5 mg IVPUSH Q6H [facility] Last Admin: 09/10/19 04:29 Dose: Not Given Documented by: Pantoprazole Sodium (Protonix -) 40 mg PO DAILY [facility] Last Admin: 09/09/19 09:32 Dose: 40 mg Documented by: Sodium Hypochlorite (Dakin's Solution 0.5% (Full Strength) -) 1 applic TP DAILY [facility] Last Admin: 09/09/19 09:34 Dose: 1 applic Documented by: - Objective Vital Signs: Vital Signs Temperature 98.2 F 09/10/19 06:02 Pulse Rate 94 H 09/10/19 06:02 Respiratory Rate 20 09/10/19 06:02 Blood Pressure 94/45 L 09/10/19 06:02 O2 Sat by Pulse Oximetry (%) 96 09/09/19 21:00 Constitutional: Yes: No Distress, Calm, Cachectic, Thin Eyes: Yes: Conjunctiva Clear, EOM Intact HENT: Yes: Atraumatic, Normocephalic Neck: Yes: Supple, Trachea Midline Cardiovascular: Yes: Regular Rate and Rhythm Respiratory: Yes: Regular, CTA Bilaterally Gastrointestinal: Yes: Normal Bowel Sounds, Soft ...Rectal Exam: Yes: Deferred Genitourinary: Yes: Kohli Present Breast(s): Yes: WNL Musculoskeletal: Yes: Muscle Weakness Extremities: Yes: WNL Edema: No Peripheral Pulses WNL: Yes Integumentary: Yes: Pressure Ulcer (infected decubiti of the left buttock, hips and sacrum) Neurological: Yes: Alert, Confusion, Unsteady Gait, Weakness ...Motor Strength: LUE (generalized muscle weakness of all extremities) Psychiatric: Yes: Alert Labs: CBC, BMP 09/10/19 07:22 09/10/19 07:22 - ....Imaging Other: Report Reviewed (lab data reviewed) Problem List - Problems (1) Decubitus ulcers Code(s): L89.90 - PRESSURE ULCER OF UNSPECIFIED SITE, UNSPECIFIED STAGE (2) Anemia Code(s): D64.9 - ANEMIA, UNSPECIFIED Qualifiers: Anemia type: iron deficiency Iron deficiency anemia type: unspecified iron deficiency Qualified Code(s): D50.9 - Iron deficiency anemia, unspecified (3) Constipation Code(s): K59.00 - CONSTIPATION, UNSPECIFIED (4) Dementia Code(s): F03.90 - UNSPECIFIED DEMENTIA WITHOUT BEHAVIORAL DISTURBANCE (5) Fracture of pubic ramus Code(s): S32.599A - OTH FRACTURE OF UNSP PUBIS, INIT ENCNTR FOR CLOSED FRACTURE (6) History of colon cancer Code(s): Z85.038 - PERSONAL HISTORY OF MALIGNANT NEOPLASM OF LARGE INTESTINE (7) Inability to ambulate due to hip Code(s): R26.2 - DIFFICULTY IN WALKING, NOT ELSEWHERE CLASSIFIED (8) Intertrochanteric fracture of right hip Code(s): S72.141A - DISPLACED INTERTROCHANTERIC FRACTURE OF RIGHT FEMUR, INIT (9) Small bowel obstruction Code(s): K56.609 - UNSP INTESTNL OBST, UNSP TO PARTIAL VERSUS COMPLETE OBST (10) Syncope and collapse Code(s): R55 - SYNCOPE AND COLLAPSE (11) Bacteremia due to Gram-negative bacteria Code(s): R78.81 - BACTEREMIA (12) Leukocytosis Code(s): D72.829 - ELEVATED WHITE BLOOD CELL COUNT, UNSPECIFIED Assessment/Plan Assessment/plan: acutely infected multiple decubiti of the left buttock, hips and sacrum, sepsis, acute E. Coli bacteremia, HTN, colon cancer, s/p colon resection, dementia; IV Aztreonam and Vancomycin as per ID for infected decubiti and E. Coli bacteremia, DVT/GI prophylaxis, Mirtazapine for insomnia, IV morp hiram sulfate for low back pain, IV fluids, amino acids, topical collagenase, topical sodium hypochlorite.
[2019-09-10] MEDS: AMINO ACIDS/PROTEIN HYDROLYS 30 ML LIQUID.PKT PO SCH ×2 (09:33→17:45)
[2019-09-10] MEDS: COLLAGENASE CLOSTRIDIUM HIST. 30 GRAMS TUBE TP SCH ×2 (09:34→23:00)
[2019-09-10] MEDS: ENOXAPARIN NA (PORCINE) 40 MG/0.4 ML DISP.SYRIN SQ SCH (09:34)
[2019-09-10] MEDS: SODIUM HYPOCHLORITE 0.5% 473 ML- BULK BOTTLE TP SCH (09:34)
[2019-09-10] MEDS: PANTOPRAZOLE 40 MG TABLET PO SCH (09:34)
[2019-09-10] MEDS: D5-1/2NS+20 MEQ KCL - 20 MEQ/1,000 ML INFUS.BAG IV SCH ×2 (10:59→15:20)
--- NOTE | 2019-09-10 11:55 | PN ---
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, Physician History of Present Illness: stable no new issues bacteremia cleared - Current Medication List Current Medications: Active Medications Amino Acids (Prosource No Carb Liquid Pkt) 30 ml PO BID@0800,1730 [facility] Last Admin: 09/10/19 09:33 Dose: 30 ml Documented by: Collagenase (Santyl -) 1 applic TP BID [facility]; Protocol Last Admin: 09/10/19 09:34 Dose: 1 applic Documented by: Enoxaparin Sodium (Lovenox -) 40 mg SQ DAILY [facility] Last Admin: 09/10/19 09:34 Dose: 40 mg Documented by: Aztreonam 1 gm/ Dextrose 50 mls @ 100 mls/hr IVPB Q8H-IV [facility]; Protocol Last Admin: 09/10/19 09:33 Dose: 100 mls/hr Documented by: Vancomycin HCl 750 mg/ (Dextrose) 250 mls @ 166.667 mls/hr IVPB Q12H [facility]; Protocol Last Admin: 09/10/19 03:25 Dose: 166.667 mls/hr Documented by: Potassium Chloride/Dextrose/Sod Cl (D5-1/2ns+20 Meq Kcl -) 20 meq in 1,000 mls @ 50 mls/hr IV ASDIR [facility] Last Admin: 09/10/19 10:59 Dose: Not Given Documented by: Mirtazapine (Remeron -) 22.5 mg PO HS [facility] Last Admin: 09/09/19 21:08 Dose: 22.5 mg Documented by: Morphine Sulfate (Morphine Sulfate) 0.5 mg IVPUSH Q6H [facility] Last Admin: 09/10/19 10:05 Dose: 0.5 mg Documented by: Pantoprazole Sodium (Protonix -) 40 mg PO DAILY [facility] Last Admin: 09/10/19 09:34 Dose: 40 mg Documented by: Sodium Hypochlorite (Dakin's Solution 0.5% (Full Strength) -) 1 applic TP DAILY [facility] Last Admin: 09/10/19 09:34 Dose: 1 applic Documented by: - Objective Vital Signs: Vital Signs Temperature 98.1 F 09/10/19 08:57 Pulse Rate 103 H 09/10/19 08:57 Respiratory Rate 20 09/10/19 08:57 Blood Pressure 106/63 09/10/19 08:57 O2 Sat by Pulse Oximetry (%) 96 09/09/19 21:00 Constitutional: Yes: Calm HENT: Yes: Atraumatic Neck: Yes: Other Cardiovascular: Yes: S1, S2 Gastrointestinal: Yes: Normal Bowel Sounds, Soft Musculoskeletal: Yes: WNL Extremities: Yes: Other Integumentary: Yes: Other Wound/Incision: Yes: Dressing Dry and Intact, Other Psychiatric: Yes: Alert, Other Labs: CBC, BMP 09/10/19 07:22 09/10/19 07:22 Assessment/Plan Problem List - Problems (1) Decubitus ulcers Code(s): L89.90 - PRESSURE ULCER OF UNSPECIFIED SITE, UNSPECIFIED STAGE (2) Anemia Code(s): D64.9 - ANEMIA, UNSPECIFIED Qualifiers: Anemia type: iron deficiency Iron deficiency anemia type: unspecified iron deficiency Qualified Code(s): D50.9 - Iron deficiency anemia, unspecified (3) Constipation Code(s): K59.00 - CONSTIPATION, UNSPECIFIED (4) Dementia Code(s): F03.90 - UNSPECIFIED DEMENTIA WITHOUT BEHAVIORAL DISTURBANCE (5) Fracture of pubic ramus Code(s): S32.599A - OTH FRACTURE OF UNSP PUBIS, INIT ENCNTR FOR CLOSED FRACTURE (6) History of colon cancer Code(s): Z85.038 - PERSONAL HISTORY OF MALIGNANT NEOPLASM OF LARGE INTESTINE (7) Inability to ambulate due to hip Code(s): R26.2 - DIFFICULTY IN WALKING, NOT ELSEWHERE CLASSIFIED (8) Intertrochanteric fracture of right hip Code(s): S72.141A - DISPLACED INTERTROCHANTERIC FRACTURE OF RIGHT FEMUR, INIT (9) Small bowel obstruction Code(s): K56.609 - UNSP INTESTNL OBST, UNSP TO PARTIAL VERSUS COMPLETE OBST (10) Syncope and collapse Code(s): R55 - SYNCOPE AND COLLAPSE (11) Bacteremia due to Gram-negative bacteria Code(s): R78.81 - BACTEREMIA (12) Leukocytosis Code(s): D72.829 - ELEVATED WHITE BLOOD CELL COUNT, UNSPECIFIED Assessment/Plan continue current mgmt continue abx rest as per the team
[2019-09-10] MEDS: MIRTAZAPINE 15 MG TABLET (FP) PO SCH (21:01)
[2019-09-11] MEDS: AZTREONAM 1 GM in DEXTROSE 5%-WATER - 50 ML IVPB SCH ×2 (02:35→09:40)
[2019-09-11] MEDS: VANCOMYCIN 750 MG in DEXTROSE 5%-WATER - 250 ML IVPB SCH (03:50)
[2019-09-11] MEDS: MORPHINE SULFATE 2 MG/ML VIAL IVPUSH SCH ×2 (03:55→09:40)
[2019-09-11 07:55] LABS: BASO % 0.5 % (0-2.0); EOS % 0.7 % (0-4.5); HEMATOCRIT 33.2 % (32.4-45.2); HEMOGLOBIN 11.1 GM/dL (10.7-15.3); LYMPH % 6.4 % (8-40); MCHC 33.3 g/dl (32.0-36.0); MEAN CELL VOLUME 90.2 fl (80-96); MEAN PLT VOLUME 8.9 fl (7.5-11.1); NEUT % 86.4 % (42.8-82.8); PLATELET COUNT 285 K/MM3 (134-434); RBC 3.68 M/mm3 (3.60-5.2); RDW 12.5 % (11.6-15.6); WHITE BLOOD COUNT 9.9 K/mm3 (4.0-10.0)
[2019-09-11 08:22] LABS: BILIRUBIN,TOTAL 0.4 mg/dL (0.2-1); BLOOD UREA NITROGEN 19.6 mg/dL (7-18); CALCIUM 9.8 mg/dL (8.5-10.1); CREATININE 0.3 mg/dL (0.55-1.3); TOT PROT 5.8 g/dl (6.4-8.2)
[2019-09-11 09:03] VITALS: BP 103/57; PULSE 103; TEMP 98.4
--- NOTE | 2019-09-11 09:17 | PN ---
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, Physician Chief Complaint: Patient seen and examined at the bedside, no acute events from last night, feeling comfortable, does not appear to be in any pain. History of Present Illness: This 88 yr old w/f with PMH of HTN, colon cancer, s/p colon resection, dementia admitted via ER with an acutely infected multiple decubiti of the left buttock, hips and sacrum, sepsis, and an acute E. Coli bacteremia. - Current Medication List Current Medications: Active Medications Amino Acids (Prosource No Carb Liquid Pkt) 30 ml PO BID@0800,1730 [facility] Last Admin: 09/10/19 17:45 Dose: 30 ml Documented by: Collagenase (Santyl -) 1 applic TP BID [facility]; Protocol Last Admin: 09/10/19 23:00 Dose: 1 applic Documented by: Enoxaparin Sodium (Lovenox -) 40 mg SQ DAILY [facility] Last Admin: 09/10/19 09:34 Dose: 40 mg Documented by: Aztreonam 1 gm/ Dextrose 50 mls @ 100 mls/hr IVPB Q8H-IV [facility]; Protocol Last Admin: 09/11/19 02:35 Dose: 100 mls/hr Documented by: Vancomycin HCl 750 mg/ (Dextrose) 250 mls @ 166.667 mls/hr IVPB Q12H [facility]; Protocol Last Admin: 09/11/19 03:50 Dose: 166.667 mls/hr Documented by: Potassium Chloride/Dextrose/Sod Cl (D5-1/2ns+20 Meq Kcl -) 20 meq in 1,000 mls @ 50 mls/hr IV ASDIR [facility] Last Admin: 09/10/19 15:20 Dose: 50 mls/hr Documented by: Mirtazapine (Remeron -) 22.5 mg PO HS [facility] Last Admin: 09/10/19 21:01 Dose: 22.5 mg Documented by: Morphine Sulfate (Morphine Sulfate) 0.5 mg IVPUSH Q6H [facility] Last Admin: 09/11/19 03:55 Dose: Not Given Documented by: Pantoprazole Sodium (Protonix -) 40 mg PO DAILY [facility] Last Admin: 09/10/19 09:34 Dose: 40 mg Documented by: Sodium Hypochlorite (Dakin's Solution 0.5% (Full Strength) -) 1 applic TP DAILY [facility] Last Admin: 09/10/19 09:34 Dose: 1 applic Documented by: - Objective Vital Signs: Vital Signs Temperature 98.4 F 09/11/19 09:02 Pulse Rate 103 H 09/11/19 09:02 Respiratory Rate 16 09/11/19 09:02 Blood Pressure 103/57 L 09/11/19 09:02 O2 Sat by Pulse Oximetry (%) 95 09/10/19 21:00 Constitutional: Yes: No Distress, Calm, Cachectic, Thin Eyes: Yes: Conjunctiva Clear, EOM Intact HENT: Yes: Atraumatic, Normocephalic Neck: Yes: Supple, Trachea Midline Cardiovascular: Yes: Regular Rate and Rhythm Respiratory: Yes: Regular, CTA Bilaterally Gastrointestinal: Yes: Normal Bowel Sounds, Soft ...Rectal Exam: Yes: Deferred Genitourinary: Yes: Kohli Present Breast(s): Yes: WNL Musculoskeletal: Yes: Muscle Weakness Extremities: Yes: WNL Edema: No Peripheral Pulses WNL: Yes Integumentary: Yes: Pressure Ulcer (left buttock hips and sacrum) Neurological: Yes: Alert, Confusion, Unsteady Gait, Weakness ...Motor Strength: LUE (generalized muscle weakness of all extremities) Psychiatric: Yes: Alert Labs: CBC, BMP 09/11/19 06:30 09/11/19 06:30 - ....Imaging Other: Report Reviewed (lab data reviewed) Problem List - Problems (1) Decubitus ulcers Code(s): L89.90 - PRESSURE ULCER OF UNSPECIFIED SITE, UNSPECIFIED STAGE (2) Anemia Code(s): D64.9 - ANEMIA, UNSPECIFIED Qualifiers: Anemia type: iron deficiency Iron deficiency anemia type: unspecified iron deficiency Qualified Code(s): D50.9 - Iron deficiency anemia, unspecified (3) Constipation Code(s): K59.00 - CONSTIPATION, UNSPECIFIED (4) Dementia Code(s): F03.90 - UNSPECIFIED DEMENTIA WITHOUT BEHAVIORAL DISTURBANCE (5) Fracture of pubic ramus Code(s): S32.599A - OTH FRACTURE OF UNSP PUBIS, INIT ENCNTR FOR CLOSED FRACTURE (6) History of colon cancer Code(s): Z85.038 - PERSONAL HISTORY OF MALIGNANT NEOPLASM OF LARGE INTESTINE (7) Inability to ambulate due to hip Code(s): R26.2 - DIFFICULTY IN WALKING, NOT ELSEWHERE CLASSIFIED (8) Intertrochanteric fracture of right hip Code(s): S72.141A - DISPLACED INTERTROCHANTERIC FRACTURE OF RIGHT FEMUR, INIT (9) Small bowel obstruction Code(s): K56.609 - UNSP INTESTNL OBST, UNSP TO PARTIAL VERSUS COMPLETE OBST (10) Syncope and collapse Code(s): R55 - SYNCOPE AND COLLAPSE (11) Bacteremia due to Gram-negative bacteria Code(s): R78.81 - BACTEREMIA (12) Leukocytosis Code(s): D72.829 - ELEVATED WHITE BLOOD CELL COUNT, UNSPECIFIED (13) Hyponatremia Code(s): E87.1 - HYPO-OSMOLALITY AND HYPONATREMIA Assessment/Plan Assessment/plan: acute hyponatremia, acutely infected multiple decubiti of the left buttock hips and sacrum, sepsis, acute E. Coli bacteremia, HTN, colon cancer, s/p colon resection, dementia; IV Aztreonam and Vancomycin as per ID for acutely infected multiple decubiti and E. Coli bacteremia, DVT/GI prophylaxis, p hysical therapy, mirtazapine for insomnia, IV morphine sulfate for pain control, IV fluids, topical Collagenase and sodium hypochlorite, discharge planning, social services specialist request, transfer to [facility] for further care.
[2019-09-11] MEDS ORDERED: D5-NS + 20 MEQ KCL - 20 MEQ/1,000 ML INFUS.BAG IV SCH (09:30)
[2019-09-11] MEDS: AMINO ACIDS/PROTEIN HYDROLYS 30 ML LIQUID.PKT PO SCH (09:39)
[2019-09-11] MEDS: PANTOPRAZOLE 40 MG TABLET PO SCH (09:40)
[2019-09-11] MEDS: ENOXAPARIN NA (PORCINE) 40 MG/0.4 ML DISP.SYRIN SQ SCH (09:40)
[2019-09-11] MEDS: SODIUM HYPOCHLORITE 0.5% 473 ML- BULK BOTTLE TP SCH (09:40)
[2019-09-11] MEDS: COLLAGENASE CLOSTRIDIUM HIST. 30 GRAMS TUBE TP SCH (09:41)
--- NOTE | 2019-09-11 10:24 | DS ---
Physical Examination Vital Signs: Vital Signs Temperature 98.4 F 09/11/19 09:02 Pulse Rate 103 H 09/11/19 09:02 Respiratory Rate 16 09/11/19 09:02 Blood Pressure 103/57 L 09/11/19 09:02 O2 Sat by Pulse Oximetry (%) 95 09/10/19 21:00 Constitutional: Yes: No Distress, Calm, Cachectic, Thin Eyes: Yes: Conjunctiva Clear, EOM Intact HENT: Yes: Atraumatic, Normocephalic Neck: Yes: Supple, Trachea Midline Cardiovascular: Yes: Regular Rate and Rhythm Respiratory: Yes: Regular, CTA Bilaterally Gastrointestinal: Yes: Normal Bowel Sounds, Soft ...Rectal Exam: Yes: Deferred Renal/: Yes: Kohli Present Breast(s): Yes: WNL Musculoskeletal: Yes: Muscle Weakness Extremities: Yes: WNL Edema: No Peripheral Pulses WNL: Yes Integumentary: Yes: Pressure Ulcer (left buttock hips and sacrum) Neurological: Yes: Alert, Confusion, Unsteady Gait, Weakness ...Motor Strength: LUE (generalized muscle weakness of all extremities) Psychiatric: Yes: Alert Labs: CBC, BMP 09/11/19 06:30 09/11/19 06:30 Discharge Summary Problems reviewed: Yes Reason For Visit: PRESSURE INJURY OF SKIN Current Active Problems Bacteremia due to Gram-negative bacteria (Acute) Decubitus ulcers (Acute) Hyponatremia (Acute) Leukocytosis (Acute) Condition: Improved - Instructions Diet, Activity, Other Instructions: Continue present meds. Physical therapy. Transfer to [facility] for further care. Total time spent over 30 minutes. Referrals: Payal Quispe MD [Primary Care Provider] - Disposition: TRANSFER ACUTE CARE/OTHER HOSP - Home Medications Comprehensive Discharge Medication List: Ambulatory Orders Acetaminophen [Tylenol .Extra-Strength -] 500 mg PO Q4H PRN 01/26/17 Collagenase Clostridium Hist. [Santyl] 1 applic TP DAILY #90 oint...g. 04/27/19 Mirtazapine 3 tab PO HS 08/31/19 Amino Acids/Protein Hydrolys [Prosource No Carb Liquid Pkt] 30 ml PO BID @0800,1730 packet 09/11/19 Collagenase Clostridium Hist. [Santyl -] 1 applic TP BID tube 09/11/19 Mirtazapine [Remeron -] 22.5 mg PO HS tablet 09/11/19 Pantoprazole Sodium [Protonix -] 40 mg PO DAILY tablet.ec 09/11/19 Sodium Hypochlorite 0.5% [Dakin's Solution 0.5% (Full Strength) -] 1 applic TP DAILY ml 09/11/19
--- NOTE | 2019-09-11 10:59 | PN ---
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, Physician History of Present Illness: no overnight events - Current Medication List Current Medications: Active Medications Amino Acids (Prosource No Carb Liquid Pkt) 30 ml PO BID@0800,1730 [facility] Last Admin: 09/11/19 09:39 Dose: 30 ml Documented by: Collagenase (Santyl -) 1 applic TP BID [facility]; Protocol Last Admin: 09/11/19 09:41 Dose: 1 applic Documented by: Enoxaparin Sodium (Lovenox -) 40 mg SQ DAILY [facility] Last Admin: 09/11/19 09:40 Dose: 40 mg Documented by: Aztreonam 1 gm/ Dextrose 50 mls @ 100 mls/hr IVPB Q8H-IV [facility]; Protocol Last Admin: 09/11/19 09:40 Dose: 100 mls/hr Documented by: Vancomycin HCl 750 mg/ (Dextrose) 250 mls @ 166.667 mls/hr IVPB Q12H [facility]; Pro tocol Last Admin: 09/11/19 03:50 Dose: 166.667 mls/hr Documented by: Dextrose/Sodium Chloride (Dextrose 5%-Normal Saline+20 Meq Kcl -) 20 meq in 1,000 mls @ 50 mls/hr IV ASDIR [facility] Last Admin: 09/11/19 09:44 Dose: 50 mls/hr Documented by: Mirtazapine (Remeron -) 22.5 mg PO HS [facility] Last Admin: 09/10/19 21:01 Dose: 22.5 mg Documented by: Morphine Sulfate (Morphine Sulfate) 0.5 mg IVPUSH Q6H [facility] Last Admin: 09/11/19 09:40 Dose: Not Given Documented by: Pantoprazole Sodium (Protonix -) 40 mg PO DAILY [facility] Last Admin: 09/11/19 09:40 Dose: 40 mg Documented by: Sodium Hypochlorite (Dakin's Solution 0.5% (Full Strength) -) 1 applic TP DAILY [facility] Last Admin: 09/11/19 09:40 Dose: 1 applic Documented by: - Objective Vital Signs: Vital Signs Temperature 98.4 F 09/11/19 09:02 Pulse Rate 103 H 09/11/19 09:02 Respiratory Rate 16 09/11/19 09:02 Blood Pressure 103/57 L 09/11/19 09:02 O2 Sat by Pulse Oximetry (%) 95 09/10/19 21:00 Constitutional: Yes: No Distress, Calm Cardiovascular: Yes: S1, S2 Respiratory: Yes: Regular, CTA Bilaterally Gastrointestinal: Yes: Normal Bowel Sounds, Soft Musculoskeletal: Yes: Other Extremities: Yes: WNL Neurological: Yes: Alert Psychiatric: Yes: Alert Labs: CBC, BMP 09/11/19 06:30 09/11/19 06:30 Assessment/Plan Problem List - Problems (1) Decubitus ulcers Code(s): L89.90 - PRESSURE ULCER OF UNSPECIFIED SITE, UNSPECIFIED STAGE (2) Anemia Code(s): D64.9 - ANEMIA, UNSPECIFIED Qualifiers: Anemia type: iron deficiency Iron deficiency anemia type: unspecified iron deficiency Qualified Code(s): D50.9 - Iron deficiency anemia, unspecified (3) Constipation Code(s): K59.00 - CONSTIPATION, UNSPECIFIED (4) Dementia Code(s): F03.90 - UNSPECIFIED DEMENTIA WITHOUT BEHAVIORAL DISTURBANCE (5) Fracture of pubic ramus Code(s): S32.599A - OTH FRACTURE OF UNSP PUBIS, INIT ENCNTR FOR CLOSED FRACTURE (6) History of colon cancer Code(s): Z85.038 - PERSONAL HISTORY OF MALIGNANT NEOPLASM OF LARGE INTESTINE (7) Inability to ambulate due to hip Code(s): R26.2 - DIFFICULTY IN WALKING, NOT ELSEWHERE CLASSIFIED (8) Intertrochanteric fracture of right hip Code(s): S72.141A - DISPLACED INTERTROCHANTERIC FRACTURE OF RIGHT FEMUR, INIT (9) Small bowel obstruction Code(s): K56.609 - UNSP INTESTNL OBST, UNSP TO PARTIAL VERSUS COMPLETE OBST (10) Syncope and collapse Code(s): R55 - SYNCOPE AND COLLAPSE (11) Bacteremia due to Gram-negative bacteria Code(s): R78.81 - BACTEREMIA (12) Leukocytosis Code(s): D72.829 - ELEVATED WHITE BLOOD CELL COUNT, UNSPECIFIED Assessment/Plan continue current mgmt continue abx rest as per the team wound care
== END 2019-09-11 11:15 | disposition short-term general hospital (02) | DRG 871 ==
LOC: JER 13:31 → JERBED 15:07 → J6WEST-2 09-01 09:27
PROVIDERS: ADMIT Internal Medicine; ATTEND Internal Medicine
DX: A41.51 Sepsis due to Escherichia coli [E. coli] (principal); L89.154 Pressure ulcer of sacral region, stage 4; R64 Cachexia; Z68.1 Body mass index [BMI] 19.9 or less, adult; E87.1 Hypo-osmolality and hyponatremia; L89.229 Pressure ulcer of left hip, unspecified stage; L89.219 Pressure ulcer of right hip, unspecified stage; I10 Essential (primary) hypertension; D72.829 Elevated white blood cell count, unspecified; F03.90 Unspecified dementia, unspecified severity, without behavioral disturbance, psychotic disturbance, mood disturbance, and anxiety; Z85.038 Personal history of other malignant neoplasm of large intestine; R26.2 Difficulty in walking, not elsewhere classified
CPT/HCPCS: 36415; 80053; 83735; 85025; 86850; 86900; 86901; 87040; 87070; 87186; 87205; 93005; 93010; 97116-GP; 97162-GP; 99285-25; E0186; G0463-25; G0480; J0131; U0003